=== PATIENT | male | born 1940 | race Hispanic/Latino ===

== ENCOUNTER 2017-08-01 20:40 | Inpatient (IN) | payer MEDICARE ==
[2017-08-01] MEDS ORDERED: Ondansetron ODT 8 MG TAB ONE (21:12)
[2017-08-01 21:30] LABS: #Eosinphils 0.1 thou/uL (0.0-0.7); #Monocytes 1.3 thou/uL (0.11-0.59); #Neutrophils 12.9 thou/uL (1.40-6.50); %Basophils 0.3 % (0.0-1.0); %Eosinophils 0.7 % (0.0-10.0); %Lymphocytes 12.4 % (21.0-51.0); %Monocytes 7.7 % (0.0-10.0); %Neutrophils 78.9 % (42.0-75.0); Hemoglobin 15.7 g/dL (14.0-18.0); Mean Corpuscular HGB CONC 34.2 g/dL (32.0-36.0); Mean Corpuscular Volume 90.6 fl (80.0-94.0); Mean Platelet Volume 6.2 fL (7.4-10.4); Platelet Count 234 thou/uL (130-400); RBC Distribution Width 12.5 % (11.5-14.5); Red Blood Cell (RBC) Count 5.06 mill/uL (4.70-6.10); White Blood Cell (WBC) Count 16.3 thou/uL (4.8-10.8)
[2017-08-01 21:51] LABS: ALT (SGPT) 14 U/L (8-55); AST (SGOT) 24 U/L (5-34); Albumin 4.4 g/dL (3.4-4.8); Alkaline Phosphatase 78 U/L (40-150); Anion Gap 14 mmol/L (10-20); BUN (Urea Nitrogen) 30 mg/dL (8.4-25.7); Bilirubin, Total 0.4 mg/dL (0.2-1.2); Calc. Creatinine Clearance 0 mL/min (70-130); Calcium 9.3 mg/dL (7.8-10.44); Carbon Dioxide 23 mmol/L (23-31); Chloride 108 mmol/L (98-107); Estimated GFR-MDRD 51; Globulin 3.3 g/dL (2.4-3.5); Glucose 121 mg/dL (83-110); Lipase 47 U/L (8-78); Potassium 4.2 mmol/L (3.5-5.1); Protein, Total 7.7 g/dL (5.8-8.1); Sodium 141 mmol/L (136-145)
--- NOTE | 2017-08-01 22:13 | CT ---
CT ABDOMEN AND PELVIS WITHOUT CONTRAST: 08/01/17 Multiple axial tomograms obtained of the abdomen and pelvis without IV enhancement. HISTORY: Right sided abdominal pain. Comparison made to a CT abdomen from April 2009. FINDINGS: Lung bases clear. There is a cyst in the inferior right lobe of the liver which had enlarged since e prior study. This cyst measures 3.5 cm today. Liver, spleen and pancreas otherwise unremarkable for an unenhanced study. Adrenal glands normal. Kidneys unremarkable. there is a nonobstructing calculus in the upper collecti ng structures of the right kidney measuring possibly 7 mm. The ureters are normal caliber. No evidence of ureteral obstruction or hydronephrosis. Urinary bladde r is mildly distended and there is mild bladder wall thickening. There is mild prostatic hypertrophy. Small bowel loops appear normal. Appendix appears normal. Colon is unremarkable, filled with stool an d gas. Aorta is normal caliber. No adenopathy apparent. IMPRESSION: 1. Nonobstructing 7 mm calculus upper collecting structures right kidney. 2. Mild urinary bladder wall thickening. 3. Prostatic hypertrophy. 4. Hepatic cyst. POS: [facility]
[2017-08-01 23:07] LABS: Bilirubin Negative (Negative); Blood, Urine Negative (Negative); Clarity CLEAR (Clear); Glucose, Urine (Dipstick) Negative (Negative); Leukocyte Negative (Negative); Nitrite Negative (Negative); Protein, Urine (Dipstick) Negative (Neg-Trace); Specific Gravity, Urine 1.026 (1.002-1.036); Urobilinogen 0.2 mg/dL (0.2-1.0)
[2017-08-01] MEDS ORDERED: Promethazine HCl 25 MG/ML VIAL ONE (23:22)
[2017-08-01] MEDS ORDERED: Fentanyl 100 MCG/2 ML VIAL ONE (23:22)
[2017-08-01 23:52] LABS: INR-International Normal Ratio 2.7; PTT 36.3 SEC (22.9-36.1); Prothrombin Time 30.2 SEC (12.0-14.7)
--- NOTE | 2017-08-01 23:56 | RAD ---
PORTABLE CHEST: 08/01/17 HISTORY: Preoperative evaluation. Heart is mildly enlarged with postop sternotomy change. Mild vascular engorgement. No evidence of inf iltrate or significant effusion. Mild atelectasis in the lung bases as confirmed on CT abdomen perfor med earlier today. IMPRESSION: No acute lung process. Mild basilar atelectasis is seen on earlier CT. POS: [facility]
[2017-08-02] MEDS ORDERED: Fentanyl 100 MCG/2 ML VIAL ONE (01:50)
[2017-08-02] MEDS: Dextrose 5 % And 0.9 % NaCl 1,000 ML IV SCH ×3 (02:39→22:00)
[2017-08-02] MEDS ORDERED: HYDROcodone/Acetaminophen 10/325 mg Tablet PO PRN (07:12)
--- NOTE | 2017-08-02 07:47 | CON ---
DATE OF CONSULTATION: 08/02/2017 PRIMARY CARE PHYSICIAN: Dr. Holt SOLDERING TECHNICIAN: Dr. Laird REASON FOR CONSULT: Right renal lithiasis, right upper quadrant abdominal discomfort. HISTORY OF PRESENT ILLNESS: Mr. Vivar is a pleasant male, [id number] , [place] speaking, who presents with his daughter for evaluation of right upper quadrant abdominal discomfort that began yesterday. The patient relates that the right upper quadrant discomfort at times radiates to his upper back. History of nausea; however, currently denies. He is currently resting comfortably. Pain is characterized as constant shooting pain. Denies prior urologic assessment for kidney stones, BPH issues. He denies family history of prostate cancer. He has urinary frequency; however, states that his urinary flow is adequate, denies obstructive urinary symptoms. Denies gross hematuria. He was provided 50 mcg of fentanyl x2, morphine 8 mg, Zofran 8 mg in the emergency room. Due to intractable pain, urologic consultation was obtained. CT, however, demonstrated a nonobstructing 7 mm right kidney stone with no evidence of hydronephrosis. The patient is retired, extended family at bedside. PAST MEDICAL HISTORY: Hypertension, coronary artery disease, history of mechanical valve. Coronary artery disease. PAST SURGICAL HISTORY: CABG x4 in 1997, atrial valve replacement by Dr. Martinez. SOCIAL HISTORY: Occasional alcohol, denies illicit drug use, denies Tobacco abuse. ALLERGIES: No known drug allergies. HOME MEDICATIONS: Include warfarin, lovastatin, lisinopril, amlodipine, warfarin 7.5 mg one p.o. daily. PHYSICAL EXAMINATION: VITAL SIGNS: He presented to the emergency room with stable vital signs. Afebrile, currently is 98, 86, 14, 92%, 150/73. GENERAL: Patient is resting comfortably, daughter is at bedside. HEENT: Grossly unremarkable. HEART: Consistent with mechanical valve. LUNGS: Clear. ABDOMEN: Soft. There is no rigidity, no rebound. No tenderness elicited on physical exam. GENITOURINARY: Demonstrates uncircumcised phallus. Meatus is unremarkable. Testes descended with no evidence of intratesticular mass. Incidentally, there is large bilateral spermatocele approximately 3 cm in size. It is nontender on exam. RECTAL: A digital rectal exam demonstrates prostate smooth, volume greater than 40-50 grams. No gross nodularity is appreciated. EXTREMITIES: No cyanosis, clubbing or edema. NEUROLOGIC: No gross focal deficits. PSYCHIATRIC: Appears to be appropriate and intact. PERTINENT LABS AND IMAGING: White count of 16, hemoglobin is 15, platelets 234. INR is 2.7. PTT of 36, BUN 30, creatinine 1.3. LFTs are grossly unremarkable. UA is negative except trace ketones. Urine culture is pending. CT of the abdomen and pelvis reviewed from 2009 demonstrating a nonobstructing right lower pole 3 mm stone. MRI in 2004 demonstrates right 1.5 cm hemorrhagic cyst, hepatic cyst. CT without contrast 08/01/2017; nonobstructing 7 mm right lower pole renal calculi measuring 7 mm. Hounsfield unit per my review is 1100. There is no evidence of hydroureteronephrosis. Bladder is mildly distended with BPH component. Prostate measures per my review approximately 54 grams. IMPRESSION/PLAN: 1. Mr. Vivar is a pleasant 77-year-old male, [place] speaking, presented with right upper quadrant abdominal discomfort of unclear etiology. 2. History of chronic anticoagulation secondary to mechanical heart valve replacement. 3. History of coronary artery disease status post coronary artery bypass graft. 4. Urologic issues of nonobstructing 7 mm lower pole stone, review of CAT scan demonstrates the stone was present back in 2009. 5. Prostatic hypertrophy on imaging. RECOMMENDATIONS: 1. The patient presents with leukocytosis and right upper quadrant pain of unclear etiology. I do not believe that his nonobstructing right lower pole stone present since 2009 is the culprit for acute right upper quadrant discomfort. There is a possibility that this is neuromuscular in etiology. Workup per medical service is advised. Currently, he is resting comfortably. Recommend pain management with oral regimen and monitor. I will obtain a KUB this morning. If pain is adequately controlled and medically cleared; from urologic perspective, he may be discharged with outpatient follow up with me for elective treatment versus observation of his right lower pole stone. He will require full cardiac workup due to history of CABG, atrial valve replacement. 2. Incidental spermatocele. Will obtain scrotal ultrasound. Recheck CBC. MTDD
[2017-08-02] MEDS: HYDROcodone/Acetaminophen 10/325 mg Tablet PO PRN ×2 (07:53→14:35)
[2017-08-02 07:54] LABS: Hemoglobin 15.2 g/dL (14.0-18.0); Mean Corpuscular HGB CONC 33.7 g/dL (32.0-36.0); Mean Corpuscular Hemoglobin 31.2 pg (27.0-31.0); Mean Corpuscular Volume 92.7 fl (80.0-94.0); Mean Platelet Volume 6.3 fL (7.4-10.4); Platelet Count 196 thou/uL (130-400); RBC Distribution Width 12.7 % (11.5-14.5); Red Blood Cell (RBC) Count 4.86 mill/uL (4.70-6.10); White Blood Cell (WBC) Count 18.2 thou/uL (4.8-10.8)
[2017-08-02 08:29] LABS: Band 30 % (5-11); Lymphocytes 1 % (21-51); MDiff Complete? YES; Neutrophil 61 % (42-75); PLT Morphology Comment Appears Adequate; RBC Morphology Normal; Reactive Lymphocytes 8 % (0-10)
[2017-08-02] MEDS: Docusate 100 MG CAP PO SCH ×2 (08:31→20:07)
[2017-08-02] MEDS: Tamsulosin HCl 0.4 MG CAP PO SCH (08:32)
[2017-08-02] MEDS ORDERED: Prevnar 13-Val Conj/PF 0.5 ML SYRINGE IM ONE (09:00)
--- NOTE | 2017-08-02 09:02 | RAD ---
KUB: DATE: 08/02/17. PROVIDED CLINICAL HISTORY: Right renal stone. FINDINGS: Comparison is made with the CT examination dated 08/01/17. Abdominal bowel gas pattern is nonspecific . Conspicuous fecal material obscures the right renal shadow with known right nephrolithiasis not we ll demonstrated on the current study. Vascular calcifications are seen. Degenerative changes involv e the spine. IMPRESSION: Known right renal calculus is poorly demonstrated radiographically. POS: [facility]
--- NOTE | 2017-08-02 10:11 | ULT ---
BILATERAL TESTICULAR ULTRASOUND WITH DOPPLER: HISTORY: Spermatocele. TECHNIQUE: Sweeney-scale, color-flow, and spectral Doppler. FINDINGS: The right testis measures 4.4 x 2.2 x 3.2 cm, and the left testis measures 4.4 x 2.2 x 3.2 cm[address] No te sticular mass or microlithiasis is seen. Flow is demonstrated to both testes and epididymides. No r ight-sided hydrocele is seen. There are cysts in the epididymal heads on either side, the largest on the right measuring 3.1 cm and on the left measuring 1.7 cm. There is a large extratesticular cystic area in the left scrotum. This may either represent a large extratesticular cyst or a hydrocele. IMPRESSION: 1 . Bilateral epididymal head cysts/spermatoceles. 2. Hydrocele versus large extratesticular cyst on the left. POS: [facility]
--- NOTE | 2017-08-02 11:19 | ULT ---
BILATERAL RENAL ULTRASOUND: HISTORY: Right kidney stone; rule out hydronephrosis. FINDINGS: The right kidney measures 11.1 cm in length, and the left kidney measures 11.4 cm in length. No foca l mass or hydronephrosis is seen on either side. The cortical echogenicity and thickness are normal. The calculus in the right kidney noted on the CT scan of 08/01/2017 is not visualized on this study. The urinary bladder is unremarkable. Ureteral jets are seen bilaterally. IMPRESSION: No evidence of hydronephrosis. POS: [facility]
--- NOTE | 2017-08-02 14:31 | ULT ---
RIGHT UPPER QUADRANT ULTRASOUND: HISTORY: Right upper quadrant pain. FINDINGS: The left lobe of the liver is not visualized. There is a 4 cm cyst in the right lobe of the liver. No intrahepatic ductal dilatation is seen. No gallstones, gallbladder wall thickening, or pericholec ystic fluid identified. The pancreas is not visualized. The right kidney is unremarkable. No free f luid is seen in the Morison's pouch. IMPRESSION: 1. Limited exam. 2. Right liver lobe cyst. 3. No evidence of cholelithiasis. POS: [facility]
[2017-08-02] MEDS: Ketorolac Tromethamine 30 MG/ML VIAL IVP SCH (18:15)
[2017-08-02] MEDS ORDERED: Warfarin Sodium 7.5 MG TAB PO SCH (19:45)
[2017-08-02] MEDS: Simvastatin 20 MG TAB PO SCH (20:06)
[2017-08-03] MEDS: Ketorolac Tromethamine 30 MG/ML VIAL IVP SCH ×4 (00:33→17:51)
[2017-08-03 04:32] LABS: #Lymphocytes 1.2 thou/uL (1.20-3.40); #Monocytes 0.9 thou/uL (0.11-0.59); #Neutrophils 12.1 thou/uL (1.40-6.50); %Basophils 0.1 % (0.0-1.0); %Eosinophils 0.2 % (0.0-10.0); %Lymphocytes 8.4 % (21.0-51.0); %Monocytes 6.4 % (0.0-10.0); %Neutrophils 84.9 % (42.0-75.0); Hemoglobin 12.5 g/dL (14.0-18.0); Mean Corpuscular HGB CONC 33.4 g/dL (32.0-36.0); Mean Corpuscular Hemoglobin 31.4 pg (27.0-31.0); Mean Corpuscular Volume 94.1 fl (80.0-94.0); Mean Platelet Volume 6.3 fL (7.4-10.4); Platelet Count 153 thou/uL (130-400); RBC Distribution Width 12.6 % (11.5-14.5); Red Blood Cell (RBC) Count 3.97 mill/uL (4.70-6.10); White Blood Cell (WBC) Count 14.2 thou/uL (4.8-10.8)
[2017-08-03 04:41] LABS: Anion Gap 7 mmol/L (10-20); BUN (Urea Nitrogen) 26 mg/dL (8.4-25.7); Calc. Creatinine Clearance 57 mL/min (70-130); Calcium 8.4 mg/dL (7.8-10.44); Carbon Dioxide 26 mmol/L (23-31); Chloride 111 mmol/L (98-107); Estimated GFR-MDRD 55; Glucose 115 mg/dL (83-110); Sodium 140 mmol/L (136-145)
--- NOTE | 2017-08-03 05:19 | HP ---
DATE OF ADMISSION: 08/01/2017 REASON FOR ADMISSION AND CHIEF COMPLAINT: Right upper quadrant, right lower rib pain, acute. HISTORY OF PRESENT ILLNESS: Mr. Vivar is a 77-year-old, male with past medical history of co ronary artery disease, status post CABG, hypertension, status post TAVR, came because of sudden onset of the pain in the right upper quadrant and right flank area pain. The pain is sharp in nature asso ciated with some nausea. The patient did not fall, but he did work with manual saw for some time cut ting some branches of the trees. He worked for a few hours in the afternoon and he developed this pa in later in the evening. Pain radiates from the right lower rib area on the site to right upper quad rant, but not to the groin. No dizziness, no fever, no cough. The patient came to the emergency pricila because of severe pain. In the ER, the patient was evaluated. The patient given fentanyl for the pain, Phenergan for the nausea. A CT scan of the abdomen was done in the ER revealed nonobstructing 7 mm calculus in the upper collecting structure of the right kidney, so ER physician felt this may be causing the pain. He is admitted for further evaluation and management. PAST MEDICAL HISTORY: 1. Coronary artery disease, status post coronary artery bypass graft. 2. Hypertension. 3. Hyperlipidemia. PAST SURGICAL HISTORY: Status post CABG, status post TAVR. CURRENT MEDICATIONS: Amlodipine 5 mg daily, aspirin 81 mg daily, lisinopril 20 mg daily, lovastatin 20 mg daily, warfarin sodium 7.5 mg b.i.d. ALLERGIES: No known drug allergies. FAMILY HISTORY: Nothing contributory. SOCIAL HISTORY: Patient lives with family. No history of smoking. No history of alcohol intake. REVIEW OF SYSTEMS: Cardiovascular: No chest pain. No shortness of breath. Respiratory: No fever or cough. Gastrointestinal: Has right upper quadrant pain. No nausea, no vomiting, no diarrhea. C entral nervous system: No headache, no dizziness. PHYSICAL EXAMINATION: GENERAL: The patient is alert, awake, oriented x3. VITAL SIGNS: Temperature 98, pulse 86, respirations 20, blood pressure 140/70. HEENT: Head is normocephalic, atraumatic. Pupils equal. Nasopharynx is pink and moist. NECK: Supple. No JVD. LUNGS: Bilateral air entry present, no rales, no rhonchi. CARDIAC: S1, S2 regular. ABDOMEN: Soft and tenderness present in right upper quadrant area. No guarding, no rigidity. Bowel sounds present. RECTAL: Deferred. CHEST: Chest wall on the right side is tender in the right lower rib area. NEUROLOGIC: No focal neurological deficit. EXTREMITIES: No edema. LABORATORY AND X-RAY FINDINGS: CBC shows WBC 16.3, hemoglobin 15, hematocrit 45, platelets 234. Met abolic panel: Sodium 140, potassium 4.2, chloride 108, CO2 of 23, urea nitrogen 30, creatinine 1.3, glucose 121. Prothrombin time 13 and INR 2.7. Urinalysis negative. CT scan of the abdomen revealed there is a nonobstructing calculus in the upper collecting structures of the right kidney, measuring 7 mm, no hydronephrosis. The liver and pancreas were unremarkable. EKG shows normal sinus rhythm, no acute ST-T wave changes seen. ASSESSMENT: 1. Right upper quadrant pain and lower rib area pain, possibly musculoskeletal. 2. Leukocytosis. 3. Nephrolithiasis, stable. 4. Coronary artery disease, status post coronary artery bypass graft. 5. Hypertension. 6. Status post transcatheter aortic valve replacement. 7. Hyperlipidemia PLAN: 1. Vital signs q.4 hours. 2. Activity: As tolerated. 3. Allergies: NKDA. 4. Diet: Cardiac. 5. Continue home medication. 6. Toradol 30 IVP q.6 hours. 7. We will repeat WBC tomorrow, blood cultures.
[2017-08-03] MEDS: HYDROcodone/Acetaminophen 10/325 mg Tablet PO PRN (06:07)
--- NOTE | 2017-08-03 08:08 | PRG ---
DATE OF SERVICE: 08/03/2017 SUBJECTIVE: The patient is feeling better this morning, relates this morning his pain is in the right mid to lower quadrant, anterior, denies flank pain. He is feeling better. Denies nausea, vomiting or chills. PHYSICAL EXAMINATION: VITAL SIGNS: Stable, 99.7, 74, 138, 18. ABDOMEN: Soft. No rigidity, no rebound, no CVA tenderness. Subjective area of discomfort is in the right mid to lower quadrant. The patient relates that on palpation, it is reproducible. LABORATORY DATA: White count is decreased from 18,000-14,000, hemoglobin 12, platelet 153, no significant bandemia on today's CBC. Renal function stable, creatinine 1.27. UA demonstrates trace ketones, no bacteria, no leukocytes, no nitrites. Preliminary urine culture is negative. IMAGIN. Renal ultrasound demonstrates no hydronephrosis. KUB demonstrated nonvisualization of the stone due to bowel contents. 2. Scrotal ultrasound demonstrates bilateral epididymal head cyst/spermatocele , left large hydrocele versus spermatocele. 3. Abdominal ultrasound demonstrates no evidence of cholelithiasis. IMPRESSION AND PLAN: Mr. Vivar is a 77-year-old male with history of mechanical heart valve replacement on chronic anticoagulation with Coumadin. 1. Hypertension. 2. Coronary artery disease status post coronary artery bypass graft, presents with right quadrant abdominal discomfort of unclear etiology. His physical exam and clinical history is such that this discomfort is unrelated to his nonobstructing right lower pole stone. There is no evidence of calyceal dilatation on CT/renal ultrasound. The stone has been present dating to imaging back in 2009. As the stone does measure 7 mm, recommend surveillance, informed patient and family at bedside to consider elective treatment if they desire; however, this will require full cardiac workup and clearance to proceed given his history of heart valve and coronary artery disease. 3. History of benign prostatic hypertrophy on imaging. Recommend patient be discharged with Flomax 0.4 mg 1 p.o. daily. Clinically, his parameters have improved with no significant fever, resolution of leukocytosis, pain improving. From a urologic perspective, patient may be discharged when medically stable. Elective follow up will be provided. will sign off. [facility]
--- NOTE | 2017-08-03 08:51 | CON ---
DATE OF CONSULTATION: 08/02/2017 REFERRING PHYSICIAN: Dr. Eliot Holt. REASON FOR CONSULTATION: Abdominal pain. HISTORY OF PRESENT ILLNESS: Mr. Mukesh Vivar is a very pleasant 77-year-old [place] male, h ospitalized with abdominal pain over right upper quadrant, right colon area. He has been having that over the last several days. He has mild nausea to begin with. Since that time, he has no more naus ea. No vomiting. Does feel hungry and eats well. The pain is not worse with intake of fluid. The pain was predominantly on right side of the abdomen. The patient's family tells me that he is very a ctive and tends to move heavy objects and cut trees and mows lawn all the time. The patient does not remember having an injury to the right side of abdomen. Although, he has had right-sided abdominal pain daily, has no worsening of pain with intake of food. He feels hungry. Since admission, patient had abdominal CAT scan and abdominal sonogram. The abdominal sonogram shows no gallstones. Abdomin al CAT scan does show a small kidney stone on the right side measuring approximately 7 mm. The kidne y stone right kidney. No evidence of hydronephrosis. He also enlarged prostate by CAT scan. I was asked to see the patient by Dr. Holt because of abdominal pain and negative workup so far . His bowel movements are regular. No history of diarrhea. No rectal bleeding. The patient has rao d similar episodes in the past and was treated as an outpatient in the past. He has no fever. An ab dominal CAT scan on 08/01/2017 and was found to have enlarged prostate, hepatic cyst, and also a nono bstructing kidney stone over the right upper collecting structures. An abdominal sonogram shows no g allstones. He has no relevant history. ALLERGIES: None. SOCIAL HISTORY: Patient is . He does not smoke, but drinks alcohol occasionally. MEDICAL ILLNESSES: 1. Hypertension. 2. Hyperlipidemia. 3. Coronary artery disease. 4. Aortic valve replacement in 1997. SURGERIES: CABG and valve replacement in 1997, Dr. Martinez. MEDICATIONS: Warfarin 7.5 once a day, lovastatin 20 once a day, amlodipine 5 mg once a day, lisinopr il 20 once a day. FAMILY HISTORY: Negative for cancer, stroke, heart disease, or lung disease. REVIEW OF SYSTEMS: A 10-point system review. Constitutional: No history of fever, no weakness. He has good exercise tolerance, no weight loss. Central Nervous System: No headache, no syncope, no T IA, no seizure disorder. Respiratory: No history of chronic cough, hemoptysis, dyspnea. Cardiovasc ular system: No chest pain, no palpitation, no dyspnea, orthopnea, or PND. Gastrointestinal: As st ated in the history of present illness. Genitourinary: History of nocturia and also at times thin u rine stream. Musculoskeletal: Unremarkable. Endocrine: Unremarkable. Hematologic: Unremarkable. Neuro: Unremarkable. Psychiatry: Unremarkable. PHYSICAL EXAMINATION: GENERAL: Patient appears very comfortable in no acute distress. VITAL SIGNS: Stable. Temperature 98.3, pulse of 82, blood pressure 148/76. HEENT: Conjunctivae clear. NECK: Supple. No adenitis or thyromegaly noted. CARDIOVASCULAR SYSTEM: First and second heart sounds normal. LUNGS: Clear to auscultation. ABDOMEN: Soft to palpate. Abdomen is tender over the right upper quadrant mainly over the epigastri c area and also over the right colon area. There is no rebound or guarding. No organomegaly or mass es. Bowel sounds are normal. LABORATORY DATA: On admission 08/01, WBC 16,300, polymorphs 78, lymphocytes 12. Today WBC went up t o 18,200, hemoglobin is 15.2, hematocrit 45. Interestingly, he has 30% bandemia today and polymorphs 61. Sodium 141, potassium 4.2, chloride 108, bicarbonate 23, BUN is 30, creatinine 1.37, glucose 12 1, calcium 9.3. Bilirubin 0.4, AST 24, ALT 14, alkaline phosphate is 78. Lipase is normal at 47. CLINICAL IMPRESSION: 1. A 77-year-old male with abdominal pain, predominantly over right upper abdomen. It is tender ove r the right upper quadrant, right lumbar area corresponding right colon area. There is no rebound or guarding. He had leukocytosis yesterday with no bandemia, but today is 30% bands. Does not appear septic. The workup has been basically negative except for small kidney stones in the right side. 2. Hypertension. 3. Hyperlipidemia. 4. Aortic valve replacement. 5. Enlarged prostate on CAT scan. Overall impression at the present time, really not sure of the details of abdominal pain. He does no t appear septic and he had no fever leukocytosis and also bandemia. RECOMMENDATIONS: 1. Diets are tolerated. 2. Follow CBC. 3. Await blood cultures. Abdominal pain persists, consider: 1. HIDA scan. 2. Possible colonoscopy.
[2017-08-03] MEDS: Tamsulosin HCl 0.4 MG CAP PO SCH ×2 (08:57→08:58)
[2017-08-03] MEDS: Lisinopril 20 MG TAB PO SCH (08:57)
[2017-08-03] MEDS: Docusate 100 MG CAP PO SCH ×2 (08:58→19:44)
[2017-08-03] MEDS: Aspirin 81 mg Enteric Coated Tablet PO SCH (08:58)
[2017-08-03] MEDS: Amlodipine 5 MG TAB PO SCH (13:07)
[2017-08-03 15:33] LABS: INR-International Normal Ratio 2.7; Prothrombin Time 29.6 SEC (12.0-14.7)
[2017-08-03] MEDS: Warfarin Sodium 7.5 MG TAB PO SCH (17:53)
[2017-08-03] MEDS ORDERED: predniSONE 20 MG TAB PO SCH (18:45)
[2017-08-03] MEDS ORDERED: HYDROcodone/Acetaminophen 5/325 mg Tablet PO PRN (18:46)
[2017-08-03] MEDS: Simvastatin 20 MG TAB PO SCH (19:43)
[2017-08-03] MEDS: Acetaminophen/Codeine 30-300mg Tablet PO PRN (19:44)
[2017-08-04] MEDS: Acetaminophen/Codeine 30-300mg Tablet PO PRN ×2 (04:19→10:41)
[2017-08-04 04:25] LABS: INR-International Normal Ratio 2.6; Prothrombin Time 29.1 SEC (12.0-14.7)
--- NOTE | 2017-08-04 07:44 | PRG ---
DATE OF SERVICE: 08/03/2017 SUBJECTIVE: This is a 77-year-old [place] male hospitalized with abdominal pain over right side of the abdomen. The pain is over the right upper quadrant and also over the right lumbar area across from the right colon area. The workup has been negative. His abdominal CAT scan and abdominal sonogram negative. He has no nausea. He feels hungry and eating well. The eating does not make the pain worse. The patient had leukocytosis bandemia yesterday to 30%. However, today, CBC shows no bandemia. I believe the labs from yesterday, most likely lab error because I cannot believe bandemia came down very quickly within 24 hours. Today, WBC count is 14,200, hemoglobin 12.5 , hematocrit 37.3, polymorphs 84 and no bands. PHYSICAL EXAMINATION: GENERAL: Appears comfortable. VITAL SIGNS: Stable. Afebrile. CARDIOVASCULAR SYSTEM: First and second heart sounds normal. ABDOMEN: Soft to palpate. Abdomen is tender over the upper quadrant and also right colon area. There is no rebound or guarding. RECOMMENDATION: 1. Continue pain medication. 2. May consider colonoscopy as an outpatient, as the coumadin needs to be stopped for at least 3 days. We will defer to Dr. Holt tomorrow. YOLANDA
[2017-08-04] MEDS ORDERED: predniSONE 20 MG TAB PO SCH (08:00)
[2017-08-04] MEDS: Lisinopril 20 MG TAB PO SCH (08:50)
[2017-08-04] MEDS: Docusate 100 MG CAP PO SCH ×2 (08:51→20:13)
[2017-08-04] MEDS: Aspirin 81 mg Enteric Coated Tablet PO SCH (08:51)
[2017-08-04] MEDS: Amlodipine 5 MG TAB PO SCH (08:51)
[2017-08-04] MEDS: Tamsulosin HCl 0.4 MG CAP PO SCH (08:51)
--- NOTE | 2017-08-04 13:26 | CT ---
CT OF CHEST PERFORMED WITH IV CONTRAST ENHANCEMENT: Date: 08/04/17 HISTORY: Shortness of breath and upper abdominal pain for 3 days. COMPARISON: Chest x-ray dated 08/01/17. FINDINGS: There are bibasilar areas of consolidation with air bronchograms, greater in the right base. Changes have an appearance more suggestive of a pneumonic-type process than atelectasis. There is a small rig ht pleural effusion also seen. No pulmonary nodules are identified. There is no significant mediastinal or hilar adenopathy. No significant axillary adenopathy. There are small hypodensities within the liver which appear to represent cysts. They are difficult to characterize due to their small size. The largest lesion in the right lobe has CT Hounsfield unit nu mbers that are slightly higher than typically seen for a cyst, but I do not see any change or enhance ment related to the noncontrast CT of 08/01/17. IMPRESSION: 1. Small right pleural effusion with bibasilar infiltrates. 2. Postop sternotomy change and aortic valve noted. POS: [facility]
[2017-08-04] MEDS: cefTRIAXone\\ROCEPHIN 2 GM in Sodium Chloride 0.9% 100 ML IVPB SCH (14:12)
[2017-08-04] MEDS: Azithromycin 500 MG in Sodium Chloride 0.9% 250 ML 250 ML IVPB SCH (15:00)
[2017-08-04] MEDS ORDERED: Iopamidol 370 76% 100 ML VIAL ONE (16:38)
[2017-08-04] MEDS: Warfarin Sodium 7.5 MG TAB PO SCH (19:33)
[2017-08-04] MEDS: Simvastatin 20 MG TAB PO SCH (20:13)
[2017-08-05] MEDS: Acetaminophen/Codeine 30-300mg Tablet PO PRN ×4 (03:27→22:51)
[2017-08-05 04:26] LABS: INR-International Normal Ratio 2.7
[2017-08-05 06:47] LABS: Platelet Count 185 thou/uL (130-400)
[2017-08-05] MEDS: Lisinopril 20 MG TAB PO SCH (10:49)
[2017-08-05] MEDS: Tamsulosin HCl 0.4 MG CAP PO SCH (10:49)
[2017-08-05] MEDS: Amlodipine 5 MG TAB PO SCH (10:49)
[2017-08-05] MEDS: Docusate 100 MG CAP PO SCH ×2 (10:49→20:28)
[2017-08-05] MEDS: Aspirin 81 mg Enteric Coated Tablet PO SCH (10:49)
[2017-08-05] MEDS: cefTRIAXone\\ROCEPHIN 2 GM in Sodium Chloride 0.9% 100 ML IVPB SCH (14:09)
[2017-08-05] MEDS: Azithromycin 500 MG in Sodium Chloride 0.9% 250 ML 250 ML IVPB SCH (15:06)
[2017-08-05] MEDS ORDERED: Mag-Al 1200 mg/1200 mg/30 ML UDCUP PO PRN (17:44)
[2017-08-05] MEDS: Warfarin Sodium 7.5 MG TAB PO SCH (18:02)
[2017-08-05] MEDS: Simvastatin 20 MG TAB PO SCH (20:26)
[2017-08-06 04:49] LABS: Prothrombin Time 32.3 SEC (12.0-14.7)
[2017-08-06 04:51] LABS: Anion Gap 10 mmol/L (10-20); BUN (Urea Nitrogen) 17 mg/dL (8.4-25.7); Calc. Creatinine Clearance 84 mL/min (70-130); Calcium 8.5 mg/dL (7.8-10.44); Carbon Dioxide 26 mmol/L (23-31); Chloride 107 mmol/L (98-107); Estimated GFR-MDRD 83; Glucose 98 mg/dL (83-110); Potassium 3.9 mmol/L (3.5-5.1); Sodium 139 mmol/L (136-145)
[2017-08-06 05:13] LABS: Band 4 % (5-11); Eosinophils 1 % (0-10); Hemoglobin 13.3 g/dL (14.0-18.0); Lymphocytes 33 % (21-51); MDiff Complete? YES; Mean Corpuscular HGB CONC 33.4 g/dL (32.0-36.0); Mean Corpuscular Hemoglobin 30.4 pg (27.0-31.0); Mean Corpuscular Volume 91.1 fl (80.0-94.0); Mean Platelet Volume 6.1 fL (7.4-10.4); Metamyelocyte 1 % (0-0); Monocytes 11 % (0-10); Neutrophil 50 % (42-75); PLT Morphology Comment Appears Adequate; Platelet Count 221 thou/uL (130-400); RBC Distribution Width 12.2 % (11.5-14.5); Red Blood Cell (RBC) Count 4.38 mill/uL (4.70-6.10); White Blood Cell (WBC) Count 7.2 thou/uL (4.8-10.8)
[2017-08-06] MEDS: Acetaminophen/Codeine 30-300mg Tablet PO PRN ×3 (06:02→19:37)
[2017-08-06] MEDS: Tamsulosin HCl 0.4 MG CAP PO SCH (08:58)
[2017-08-06] MEDS: Amlodipine 5 MG TAB PO SCH (08:58)
[2017-08-06] MEDS: Lisinopril 20 MG TAB PO SCH (08:58)
[2017-08-06] MEDS: Docusate 100 MG CAP PO SCH ×2 (08:58→19:36)
[2017-08-06] MEDS: Aspirin 81 mg Enteric Coated Tablet PO SCH (08:58)
[2017-08-06] MEDS: cefTRIAXone\\ROCEPHIN 2 GM in Sodium Chloride 0.9% 100 ML IVPB SCH (14:43)
[2017-08-06] MEDS: Azithromycin 500 MG in Sodium Chloride 0.9% 250 ML 250 ML IVPB SCH (15:49)
[2017-08-06] MEDS: Warfarin Sodium 7.5 MG TAB PO SCH (17:32)
[2017-08-06] MEDS: Simvastatin 20 MG TAB PO SCH (19:36)
[2017-08-07] MEDS: Acetaminophen/Codeine 30-300mg Tablet PO PRN (01:34)
[2017-08-07 04:35] LABS: INR-International Normal Ratio 2.7; Prothrombin Time 29.5 SEC (12.0-14.7)
[2017-08-07] MEDS ORDERED: HYDROcodone/Acetaminophen 10/325 mg Tablet PO PRN (09:11)
[2017-08-07] MEDS ORDERED: Polyethylene Glycol 3350 17 GM Packet PO SCH (09:15)
[2017-08-07] MEDS: Docusate 100 MG CAP PO SCH ×2 (09:32→20:54)
[2017-08-07] MEDS: Lisinopril 20 MG TAB PO SCH (09:32)
[2017-08-07] MEDS: Tamsulosin HCl 0.4 MG CAP PO SCH (09:32)
[2017-08-07] MEDS: Aspirin 81 mg Enteric Coated Tablet PO SCH (09:32)
[2017-08-07] MEDS: Amlodipine 5 MG TAB PO SCH (09:33)
[2017-08-07 10:56] VITALS: BMI 29.5
[2017-08-07] MEDS ORDERED: Ondansetron HCl/PF 4 MG/2 ML Vial IVP PRN (12:13)
[2017-08-07] MEDS ORDERED: Magnesium Citrate 300 ML BOT PO SCH (12:15)
[2017-08-07] MEDS ORDERED: predniSONE 20 MG TAB PO SCH (13:45)
--- NOTE | 2017-08-07 13:59 | CON ---
DATE OF CONSULTATION: 08/07/2017 SERVICE: Pulmonary Medicine REASON FOR CONSULTATION: Pneumonia. HISTORY OF PRESENT ILLNESS: The patient is a 77-year-old white male. He presented to the hospital several days ago with right-sided flank discomfort. He was given significant amounts of pain medication. He became a touch somnolent. He was breathing and sleeping heavily for a couple of days. That being said, when woke up, his flank discomfort had improved, but he had a new onset of pleuritic chest discomfort. This was on hospital day 2. As such, he was sent for CT scan demonstrating a new right lower lobe and left lower lobe infiltrate that was not present on presentation. He was given incentive spirometer. He developed a cough and was given multiple pain medications for the new pleuritic chest discomfort. These seemed to do the trick. Either way, he is being considered for discharge soon and I was asked to evaluate him basically on the day of discharge. He endorses multiple features consistent with sleep apnea. PAST MEDICAL HISTORY: 1. Coronary artery disease. 2. Hypertension. 3. Dyslipidemia. 4. Nephrolithiasis. PAST SURGICAL HISTORY: 1. Coronary artery bypass graft. 2. Aortic valve replacement. ALLERGIES: No known drug allergies. MEDICATIONS: List of inpatient medications were reviewed. Multiple updates were made at this time. FAMILY HISTORY: Noncontributory. SOCIAL HISTORY: Negative for alcohol, tobacco or illicit drug use. No exposure to chemicals, dusts, asbestosis, or tuberculosis. REVIEW OF SYSTEMS: General, head, ears, eyes, nose, throat, cardiovascular, respiratory, GI, , musculoskeletal, neurologic and skin is negative except as mentioned in the HPI. PHYSICAL EXAMINATION: VITAL SIGNS: Afebrile, pulse 83, blood pressure 158/87, respirations 16, saturation 93% on room air. GENERAL: The patient is awake, alert, no apparent distress. LUNGS: Excellent air entry with no prolonged expiratory phase, wheezing, rhonchi or crackles. HEART: Normal rate, regular. ABDOMEN: Soft, nontender, nondistended. Bowel sounds are positive. MUSCULOSKELETAL: No cyanosis or clubbing. There is no pitting in the bilateral lower extremities. NEUROLOGIC: Grossly nonfocal. LABORATORY DATA: WBC 7.2, down from 18.2, hemoglobin 13.3, platelets 221,000. INR 2.7. Basic metabolic profile is essentially unremarkable at this time. Creatinine has down trended from 1.37-0.89. Urinalysis is negative. Blood cultures x2. Urine culture are negative to date. IMAGIN. CT of the abdomen and pelvis done demonstrate anything other than an obstructing stone are nonobstructing stone that has been present since 2010 in the right renal calyx. 2. CT of the chest demonstrates an infiltrate in the right lung and left lung in the posterior dependent segments. 3. Abdominal ultrasound demonstrates no acute intra-abdominal abnormality. 4. Testicular ultrasound demonstrates bilateral testicular cyst/spermatocele. He also has hydrocele versus large extratesticular cyst on the left. 5. Ultrasound of the kidneys demonstrates no evidence for hydronephrosis. ASSESSMENT: 1. Community-acquired pneumonia. 2. Severe sepsis, resolved. 3. Acute kidney injury, resolved. 4. Pleuritic chest discomfort, likely associated with pneumonia. 5. Flank discomfort, nearly resolved. DISCUSSION AND PLAN: The patient will continue his antibiotics for a total duration of 5 days. I will switch him over to p.o. equivalent. We will give him a brief 5-day course of prednisone. I will have him return to clinic in roughly 2 weeks with a pre-clinic chest x-ray. I will get a chest x-ray today. If he does not have significant effusion on the right, he will be a candidate for discharge from the hospital. 70 minutes have been devoted to this patient in various activities. I personally reviewed all imaging studies and laboratory data noted within this document. For fifty percent of this time, I was interacting with the patient at the bedside or coordinating care with the care team. For the remainder of the time I was immediately available to the patient in the hospital unit. YOLANDA
--- NOTE | 2017-08-07 15:22 | RAD ---
PA AND LATERAL VIEWS CHEST: HISTORY: Preoperative evaluation. FINDINGS: Comparison is made with the exam of 08/01/17. There are changes of median sternotomy. The heart size is normal. The aorta is tortuous. There is elevation of the right hemidiaphragm. A plate of atelectasis is seen in the left lower lung. No pne umothoraces or focal areas of consolidation are seen. Small posterior pleural effusions may be prese nt. There are degenerative changes in the spine. POS: [facility]
[2017-08-07] MEDS ORDERED: traMADol HCl 50 MG TAB PO PRN (16:48)
[2017-08-07] MEDS: Warfarin Sodium 7.5 MG TAB PO SCH (17:56)
[2017-08-07] MEDS ORDERED: Acetaminophen/Codeine 30-300mg Tablet PO PRN (18:06)
--- NOTE | 2017-08-07 19:25 | CT ---
CT ABDOMEN NONCONTRAST CT PELVIS NONCONTRAST: (urolithiasis protocol) DATE: 08/07/2017 TIME: 6:18 p.m. HISTORY: A 77-year-old male with generalized abdominal pain. COMPARISON: Noncontrast CT of 08/01/2017. TECHNIQUE: IV injection of iodinated contrast media: None. Oral contrast media: None. FINDINGS: Other than for urolithiasis, the lack of IV and oral contrast limits the evaluation. There is a new small right pleural effusion adjacent to a new moderate sized region of consolidation, involving the medial basilar and posterior basilar segments of the right lower lobe, with air bronch ogram. In the contralateral left lung, there are plate-like densities, consistent with subsegmental atelecta sis. Again demonstrated is the 3.5 cm cyst in the right lobe of the liver, in hepatic segment 6. There ar e tiny hypodensities elsewhere in the liver, including the left lobe, which are too small to characte rize. No abdominal aortic aneurysm. No adrenal mass. No hydronephrosis bilaterally. Previously de scribed 0.6 x 0.6 x 0.4 cm calculus at a right renal lower pole calyx. No calculus identified in the contralateral left kidney. No calculus identified in the urinary bladder or ureters. Nonspecific, minimal, uniform mural thickening of the urinary bladder. Enlarged prostate gland. No small bowel d ilation. No signs of acute colonic diverticulitis. Air-filled, noninflamed appendix identified. However, there is a new finding of mild fat stranding adjacent to the appendix, with an associated ti ny amount of free fluid in the mesentery and inferior to the right paracolic gutter. No pneumoperito neum. IMPRESSION: 1. New right lower lobe consolidation with air bronchogram, which could be a pneumonia. Atelectasis is the other, less likely possibility. 2. Right small adjacent parapneumonic pleural effusion. 3. New finding of edema in the right lower quadrant of the abdominal cavity, adjacent to the appendi x but not due to appendicitis. Etiology is uncertain. 4. Nephrolithiasis, consisting of a solitary right renal calculus, but no obstructive uropathy. ISAAC Boyd POS: [facility]
[2017-08-07] MEDS: Simvastatin 20 MG TAB PO SCH (20:53)
[2017-08-07] MEDS: Cefdinir 300 MG CAP PO SCH (20:53)
[2017-08-08 04:23] LABS: #Eosinphils 0.2 thou/uL (0.0-0.7); #Lymphocytes 1.2 thou/uL (1.20-3.40); #Neutrophils 5.3 thou/uL (1.40-6.50); %Basophils 0.3 % (0.0-1.0); %Lymphocytes 15.9 % (21.0-51.0); %Monocytes 13.3 % (0.0-10.0); %Neutrophils 67.5 % (42.0-75.0); Mean Corpuscular HGB CONC 34.5 g/dL (32.0-36.0); Mean Corpuscular Hemoglobin 31.5 pg (27.0-31.0); Mean Corpuscular Volume 91.3 fl (80.0-94.0); Mean Platelet Volume 5.7 fL (7.4-10.4); Platelet Count 234 thou/uL (130-400); RBC Distribution Width 12.3 % (11.5-14.5); Red Blood Cell (RBC) Count 4.13 mill/uL (4.70-6.10); White Blood Cell (WBC) Count 7.8 thou/uL (4.8-10.8)
[2017-08-08 04:28] LABS: INR-International Normal Ratio 2.9; Prothrombin Time 31.8 SEC (12.0-14.7)
[2017-08-08 04:39] LABS: Anion Gap 9 mmol/L (10-20); BUN (Urea Nitrogen) 14 mg/dL (8.4-25.7); Calc. Creatinine Clearance 82 mL/min (70-130); Calcium 8.6 mg/dL (7.8-10.44); Carbon Dioxide 28 mmol/L (23-31); Chloride 104 mmol/L (98-107); Estimated GFR-MDRD 80; Glucose 114 mg/dL (83-110); Sodium 137 mmol/L (136-145)
[2017-08-08 08:04] VITALS: TEMP 97.7
[2017-08-08] MEDS: Tamsulosin HCl 0.4 MG CAP PO SCH (08:41)
[2017-08-08] MEDS: Lisinopril 20 MG TAB PO SCH (08:42)
[2017-08-08] MEDS: Aspirin 81 mg Enteric Coated Tablet PO SCH (08:42)
[2017-08-08] MEDS: Docusate 100 MG CAP PO SCH (08:42)
[2017-08-08] MEDS: Amlodipine 5 MG TAB PO SCH (08:42)
[2017-08-08] MEDS: Cefdinir 300 MG CAP PO SCH (08:42)
[2017-08-08 08:45] VITALS: BP 157/76
[2017-08-08] MEDS ORDERED: predniSONE 20 MG TAB PO SCH (09:00)
[2017-08-08] MEDS ORDERED: Azithromycin 200 MG/5 ML Oral Suspension PO SCH (09:00)
[2017-08-08] MEDS ORDERED: Polyethylene Glycol 3350 17 GM Packet PO SCH (09:00)
[2017-08-08] MEDS ORDERED: Azithromycin 250 MG TAB PO SCH (09:00)
--- NOTE | 2017-08-08 12:50 | PQF ---
CLINICAL DOCUMENTATION IMPROVEMENT CLARIFICATION FORM: ICD-10 Updated PLEASE DO AN ADDENDUM TO THE PROGRESS NOTE WITH ANY DOCUMENTATION UPDATES OR ADDITIONS AND CARRY THROUGH TO DC SUMMARY. THANK YOU. DATE: 08/08/17 ATTN: Dr. Holt Please exercise your independent, professional judgment in responding to the clarification form. Clinical indicators are provided on the bottom of this form for your review Please check appropriate box(es): [ ] Sepsis due to: [ ] Severe sepsis with acute organ dysfunction of: [ y ] Localized infection without sepsis [ ] Other diagnosis [ ] Unable to determine In addition, please specify: Present on Admission (POA): [ y ] Yes [ ] No [ ] Unable to determine For continuity of documentation, please document condition throughout progress notes and discharge summary. Thank You. CLINICAL INDICATORS - SIGNS / SYMPTOMS / LABS OBSERVATION STATUS 08/02/17 INPATIENT ADMISSION 08/04: PNEUMONIA PN 08/04: CT CHEST - INFILTRATE BIBASILAR PNEUMONIA [facility] LABS: 08/01 WBC 16.3 08/02 WBC 18.2 08/01 CREATININE 1.37 PULMONOLOGY CONSULT 08/07: WBC 7.2, DOWN FROM 18.2 CREATININE HAS DOWN TRENDED FROM 1.37 - 0.89 ASSESSMENT: COMMUNITY - ACQUIRED PNEUMONIA. SEVERE SEPSIS, RESOLVED. ROLAND, RESOLVED. RISKS: H&P 08/01: 77 YO. HX CAD, S/P CABG, HTN, SUDDEN ONSET OF PAIN IN THE RUQ & R FLANK AREA PAIN. PN 08/04: PNEUMONIA [facility] TREATMENT: ORDER 08/04: AZITHROMYCIN 500 MG IV 1500. DC'D 08/07 ORDER 08/04: ROCEPHIN 2 GM IV 1400. DC'D 08/07 CPOE 08/07: OMNICEF 300 MG PO BID & AZITHROMYCIN 500 MG PO DAILY Thank you, Marta (This form is maintained as a part of the permanent medical record) 2015 [employer]. All Rights Reserved Marta Lopez RN, BSN [email or web address] Office: [phone] [facility]
--- NOTE | 2017-08-08 15:17 | PRG ---
DATE OF SERVICE: 08/08/2017 SERVICE: Pulmonary Medicine. INTERVAL HISTORY: The patient is doing fantastic from a respiratory standpoint. He had a recurrence of discomfort in the flank last night, prompting another CT stone protocol. On this thing, there is a minimal rim of effusion next to consolidated area of lung in the right lower lobe. I was asked to come back by and talked to the patient about whether or not a thoracentesis is indicated. He denies any current chest pain, nausea, vomiting, fevers or chills. The pleuritic chest discomfort has actu ally improved quite a bit. That being said, the flank pain returned, but is not nearly as severe as it was on presentation. There were no events overnight. PHYSICAL EXAMINATION: VITAL SIGNS: Afebrile, pulse 64, blood pressure 157/76, respirations 16, saturation 93% on room air. GENERAL: The patient is awake, alert, in no apparent distress. LUNGS: Decent air entry with no prolonged expiratory phase, wheezing, rhonchi, or crackles present. HEART: Normal rate, regular. ABDOMEN: Soft, nontender, nondistended. Bowel sounds are positive. MUSCULOSKELETAL: No cyanosis or clubbing. There is no pitting in the bilateral lower extremities. NEUROLOGIC: Grossly nonfocal. LABORATORY DATA: WBC 7.8, hemoglobin 13.0, and platelets 234,000. INR 2.9. Basic metabolic profile is essentially unremarkable. Glucose 114. Urinalysis is negative. Blood cultures and urine cultur e remain negative. IMAGING DATA: CT of the abdomen and pelvis, stone protocol demonstrates a stable stone in the right renal pelvis. No obstructive uropathy is identified. There is a miniscule parapneumonic effusion pr esent. There is a right lower lobe consolidation with air bronchograms, which is new compared to the previous CT of the abdomen and pelvis dated 08/02/2015, but it is similar compared to the CT of the chest that was done on 08/04. ASSESSMENT: 1. Community-acquired pneumonia. 2. Severe sepsis, resolved. 3. Acute kidney injury, resolved. 4. Pleuritic chest discomfort, associated with miniscule parapneumonic pleural effusion. 5. Flank discomfort, resolved. DISCUSSION AND PLAN: The patient will continue his antibiotics and complete a 7-day course. From a purely lung perspective, he is stable for transition out of the hospital. I will see him in clinic i n 2 weeks with a preclinic chest x-ray. At that time, we will set him up for a polysomnogram. If he has any recrudescence in symptoms, he will return to clinic soon. There was some edema present in t he right lower lobe, but it specifically was not associated with any appendicitis. The underlying et iology of this is not clear, but the patient has cleared his sepsis profile and his physical exam fin dings have resolved.
--- NOTE | 2017-08-09 08:20 | PRG ---
DATE OF SERVICE: 08/08/2017 SUBJECTIVE: This is a 77-year-old male hospitalized a week ago with abdominal pain. The pain was over the right upper quadrant epigastric area and also slightly over the right colon are a. He had an abdominal CAT scan done, which revealed a kidney stone, nonobstructing over the right k idney. He was seen by Urology and no intervention needed because of the location of the stone and __ ___. Apparently, he has had the same finding before. The patient had abdominal pain and subsequentl y had a CAT scan of the chest. The CAT scan showed right . He was started on antibiotics. He was seen emergency room yesterday. The patient had a repeat CAT scan of the abdomen yesterday again which shows a stone which is nonobstructing in the right kidney. The patient is on Tylenol No. 3 ove r the weekend because of abdominal pain. He became constipated and and started having nausea and abd ominal bloating. He had received a dose of laxative yesterday. On laxative, he had couple of good b owel movements and his abdominal pain markedly improved. He is eating very well. He has no nausea. The pain is not worse with intake of food. He says after the bowel movement, he is feeling a whole lot better. PHYSICAL EXAMINATION: GENERAL: He appears very comfortable. He is awake, alert, and communicative. VITAL SIGNS: Stable. He is afebrile. Pulse is 64, blood pressure is 144/77. HEENT: Conjunctivae clear. NECK: Supple. CARDIOVASCULAR SYSTEM: First and second heart sounds normal. LUNGS: Clear to auscultation. ABDOMEN: Soft to palpate. Abdomen is still mildly tender over the right upper quadrant epigastric a gage and also right lower colon area. There is no rebound or guarding. CLINICAL IMPRESSION: 1. Right lower lobe pneumonia, on antibiotics. 2. Abdominal pain with negative abdominal CAT scan, negative abdominal sonogram. 3. Right kidney stone, asymptomatic. RECOMMENDATIONS: 1. No narcotic pain medicines. 2. May try Milk of Magnesia or lactulose as needed. Anyway, he is actually feeling better and he rao d a good stool late last night and symptoms are markedly improved. The patient advised to come back to me in the next 4 weeks for outpatient colonoscopy.
== END 2017-08-08 13:20 | disposition home or self-care (01) | DRG 194 ==
LOC: ERS 20:40 → 2SW 23:49 → OBSVTOIN 08-04 13:14 → ONC 08-04 16:04
PROVIDERS: ADMIT Internal Medicine; ATTEND Internal Medicine
DX: J18.9 Pneumonia, unspecified organism (principal); N17.9 Acute kidney failure, unspecified; J90 Pleural effusion, not elsewhere classified; N20.0 Calculus of kidney; Z87.442 Personal history of urinary calculi; I25.10 Atherosclerotic heart disease of native coronary artery without angina pectoris; Z95.1 Presence of aortocoronary bypass graft; Z79.01 Long term (current) use of anticoagulants; Z95.2 Presence of prosthetic heart valve; I10 Essential (primary) hypertension; E78.5 Hyperlipidemia, unspecified; N40.0 Benign prostatic hyperplasia without lower urinary tract symptoms; M79.1 Myalgia
CPT/HCPCS: 36415; 71045; 71046; 71260; 74018; 74176; 76705; 76770; 76870; 80048; 80053; 81003; 83690; 85014; 85018; 85025; 85049; 85610; 85730; 87040; 87086; 90471; 90670; 93005; 93976; 96374; 96375; 96376; G0009; J0456; J0696; J1885; J2270; J2405; J2550; J3010; J7050; J7506

== ENCOUNTER 2017-09-27 12:50 | Outpatient (CLI) | payer MEDICARE ==
--- NOTE | 2017-09-27 13:51 | RAD ---
2 VIEW CHEST: Date: 09/27/17 COMPARISON: 08/07/17. INDICATION: Dyspnea. FINDINGS: Cardiomediastinal silhouette is stable. There is no evidence of consolidation or effusion. No pneumot horax. Scattered osseous degenerative change present. IMPRESSION: 1. Pulmonary hyperinflation may reflect COPD. Correlate clinically. 2. There is no superimposed, focal consolidation. Of note, there is a presumed nipple shadow of the inferior left chest. As a conservative measure, fol low-up imaging with nipple markers in place may be obtained for confirmation. POS: [facility]
== END 2017-09-27 12:51 | disposition home or self-care (01) ==
LOC: RAD 12:50
PROVIDERS: ATTEND Internal Medicine
DX: R06.00 Dyspnea, unspecified (principal); J98.11 Atelectasis
CPT/HCPCS: 71046

== ENCOUNTER 2019-07-26 08:27 | Outpatient (CLI) | payer MEDICARE, OTHER ==
[2019-07-26 14:30] LABS: #Eosinphils 0.2 thou/uL (0.0-0.7); #Lymphocytes 2.3 thou/uL (1.20-3.40); #Monocytes 0.9 thou/uL (0.11-0.59); #Neutrophils 3.1 thou/uL (1.40-6.50); %Basophils 0.6 % (0.0-1.0); %Eosinophils 2.4 % (0.0-10.0); %Lymphocytes 35.3 % (21.0-51.0); %Monocytes 13.8 % (0.0-10.0); %Neutrophils 47.9 % (42.0-75.0); Hemoglobin 15.9 g/dL (14.0-18.0); Mean Corpuscular Hemoglobin 32.5 pg (27.0-31.0); Mean Corpuscular Volume 92.7 fL (78.0-98.0); Mean Platelet Volume 7.5 fL (7.4-10.4); Platelet Count 214 thou/uL (130-400); RBC Distribution Width 12.6 % (11.5-14.5); Red Blood Cell (RBC) Count 4.89 mill/uL (4.70-6.10); White Blood Cell (WBC) Count 6.5 thou/uL (4.8-10.8)
[2019-07-26 14:35] LABS: INR-International Normal Ratio 1.7; Prothrombin Time 19.5 sec (12.0-14.7)
[2019-07-26 14:38] LABS: Bacteria/HPF None Seen HPF (None Seen); Bilirubin Negative (Negative); Blood, Urine Negative (Negative); Clarity Clear (Clear); Glucose, Urine (Dipstick) Normal (Negative); Leukocyte Negative Leu/uL (Negative); Nitrite Negative (Negative); Protein, Urine (Dipstick) 20 mg/dL (Neg-Trace); RBC/HPF 0-3 HPF (0-3); Squamous Epithelial None Seen HPF (0-3); WBC/HPF 0-3 HPF (0-3)
[2019-07-26 14:57] LABS: Anion Gap 14 mmol/L (10-20); BUN (Urea Nitrogen) 19 mg/dL (8.4-25.7); Calc. Creatinine Clearance 0 mL/min (70-130); Calcium 9.4 mg/dL (7.8-10.44); Carbon Dioxide 25 mmol/L (23-31); Chloride 107 mmol/L (98-107); Estimated GFR-MDRD 71; Glucose 101 mg/dL (83-110); Potassium 4.1 mmol/L (3.5-5.1); Sodium 142 mmol/L (136-145)
[2019-07-27 16:49] LABS: SARS-CoV-2 MS2 Positive; SARS-CoV-2 N Gene Negative; SARS-CoV-2 S Gene Negative; SARS-CoV-2 orf1ab Negative
== END 2019-07-26 08:28 | disposition home or self-care (01) ==
LOC: LABBT 08:27
PROVIDERS: ATTEND Orthopaedic Surgery
DX: Z01.818 Encounter for other preprocedural examination (principal); Z11.59 Encounter for screening for other viral diseases; M17.12 Unilateral primary osteoarthritis, left knee
CPT/HCPCS: 80048; 81001; 85025; 85610; 87081; 93005; U0003; 87635; 93010

== ENCOUNTER 2019-08-03 18:18 | Inpatient (IN) | payer MEDICARE ==
[2019-08-03 19:17] LABS: Hemoglobin 10.1 g/dL (14.0-18.0); Mean Corpuscular HGB CONC 34.7 g/dL (32.0-36.0); Mean Corpuscular Hemoglobin 32.3 pg (27.0-31.0); Mean Corpuscular Volume 93.2 fL (78.0-98.0); Mean Platelet Volume 7.1 fL (7.4-10.4); Platelet Count 254 thou/uL (130-400); RBC Distribution Width 12.6 % (11.5-14.5); Red Blood Cell (RBC) Count 3.13 mill/uL (4.70-6.10); White Blood Cell (WBC) Count 8.6 thou/uL (4.8-10.8)
[2019-08-03 19:30] LABS: Band 7 % (5-11); Lymphocytes 4 % (21-51); MDiff Complete? YES; Monocytes 18 % (0-10); Neutrophil 70 % (42-75); Platelet Morphology Comment Appears Adequate; Polychromasia SLIGHT = 2-3 cells (100X) (0-2/hpf)
[2019-08-03 19:33] LABS: ALT (SGPT) 40 U/L (8-55); AST (SGOT) 32 U/L (5-34); Albumin 3.8 g/dL (3.4-4.8); Alkaline Phosphatase 68 U/L (40-110); Anion Gap 17 mmol/L (10-20); BUN (Urea Nitrogen) 24 mg/dL (8.4-25.7); Bilirubin, Total 0.8 mg/dL (0.2-1.2); Calc. Creatinine Clearance 0 mL/min (70-130); Calcium 9.5 mg/dL (7.8-10.44); Carbon Dioxide 22 mmol/L (23-31); Chloride 100 mmol/L (98-107); Estimated GFR-MDRD 57; Globulin 3.4 g/dL (2.4-3.5); Glucose 127 mg/dL (83-110); Potassium 4.5 mmol/L (3.5-5.1); Protein, Total 7.2 g/dL (5.8-8.1); Sodium 134 mmol/L (136-145)
--- NOTE | 2019-08-03 19:42 | CT ---
CT ANGIOGRAM OF THE CHEST: 08/03/19 HISTORY: Syncope. Recent knee replacement. COMPARISON: 08/04/17 TECHNIQUE: CT angiogram of the chest is performed in the axial plane. Three dimensional reformatted images are s ubmitted for interpretation. FINDINGS: No mediastinal mass, lymphadenopathy, or hematoma. Heart size is within normal limits. No significant pericardial fluid. There are scattered coronary artery calcifications. Upper abdomen demonstrates multiple incompletely evaluated hypodensities involving the hepatic parenc hyma. Trachea and central bronchi are patent. Linear densities in the left and right lower lobe may represe nt scar or subsegmental atelectasis. No pleural effusion or pneumothorax. No lytic or blastic lesions in the osseous structures. Adequate contrast opacification of the pulmonary arterial system to the level of the segmental arteri es. No filling defect to suggest thromboembolism. IMPRESSION: 1. No evidence of pulmonary artery embolism to the level of the segmental arteries. 2. Linear densities in the left and right lower lobe likely represent subsegmental atelectasis o r scar. POS: [facility]
[2019-08-03 19:48] LABS: CKMB 1.8 ng/mL (0-6.6)
[2019-08-03] MEDS ORDERED: Aspirin Chewable 81 MG TAB ONE (20:09)
[2019-08-03] MEDS ORDERED: Acetaminophen 650 MG Suppository PR PRN (21:16)
[2019-08-03] MEDS ORDERED: Ondansetron ODT 4 MG TAB PO PRN (21:16)
[2019-08-03] MEDS ORDERED: Ondansetron PF 4 MG/2 ML Vial IVP PRN (21:16)
--- NOTE | 2019-08-03 21:27 | PDOC.HHP ---
Hospitalist HPI - History of Present Illness near syncope History of Present Illness: Case of an 79y/o male with pmhx of valvular repalcement on warfarin, htn and hypercholesterolemia that comes to hosptial after a near syncope episode. patient refers he was recently discharge from hospital after a L total knee replacement who comes to hospital due to a near syncope episode. patient states he was on his usual state of health until yesterday when while getting a bath in which pt was seated, he tried to get up to exit the shower when he nearly pass out, patient refers became very weak and lightheaded for which family called the ems. upon evaluation patient was found to be hypotensive with his b/ p on 70s/40s for which he was brought to hospital for further evaluation. patient was treated with ivfs and hosptialist was called for further evaluation and management. patient denies any chest pain sob palpitatios or diaphoresis, states he was close but never lost consciousness. patient had taken percocet for pain management 1 hr before episode. Hospitalist ROS - Review of Systems All other systems reviewed; all pertinent +/- noted in HPI/Subj Hospitalist History - Past Medical History Cardiac: reports: HTN, Hyperlipidemia, Valve insufficiency - Past Surgical History Past Surgical History: reports: Total Knee Replacement Other Surgical History: valve replacement - Family History Family History: reports: cancer - Social History Smoking Status: Never smoker Alcohol: reports: None Drugs: reports: none Living Situation: With Family Activity level: uses cane/walker - Exam General Appearance: awake alert Eye: PERRL, anicteric sclera ENT: normocephalic atraumatic, no oropharyngeal lesions Neck: supple, symmetric, no JVD Heart: RRR, no murmur, no gallops Respiratory: CTAB, no wheezes, no rales, no ronchi Gastrointestinal: soft, non-tender, non-distended, normal bowel sounds Extremities: no cyanosis, no clubbing, no edema Skin: normal turgor, no lesions, no rashes Neurological: cranial nerve grossly intact, normal sensation to touch Musculoskeletal: normal tone, normal strength Psychiatric: normal affect, normal behavior, A&O x 3 Hospitalist Results - Labs Result Diagrams: 08/03/19 18:59 08/03/19 18:59 Lab results: WBC 8.6 thou/uL (4.8-10.8) 08/03/19 18:59 Hgb 10.1 g/dL (14.0-18.0) L 08/03/19 18:59 Hct 29.2 % (42.0-52.0) L 08/03/19 18:59 MCV 93.2 fL (78.0-98.0) 08/03/19 18:59 Plt Count 254 thou/uL (130-400) 08/03/19 18:59 Band Neuts % (Manual) 7 % (5-11) 08/03/19 18:59 Sodium 134 mmol/L (136-145) L 08/03/19 18:59 Potassium 4.5 mmol/L (3.5-5.1) 08/03/19 18:59 Chloride 100 mmol/L (98-107) 08/03/19 18:59 Carbon Dioxide 22 mmol/L (23-31) L 08/03/19 18:59 BUN 24 mg/dL (8.4-25.7) 08/03/19 18:59 Creatinine 1.23 mg/dL (0.7-1.3) 08/03/19 18:59 Glucose 127 mg/dL (83-110) H 08/03/19 18:59 Calcium 9.5 mg/dL (7.8-10.44) 08/03/19 18:59 Total Bilirubin 0.8 mg/dL (0.2-1.2) 08/03/19 18:59 AST 32 U/L (5-34) 08/03/19 18:59 ALT 40 U/L (8-55) 08/03/19 18:59 Alkaline Phosphatase 68 U/L (40-110) 08/03/19 18:59 CK-MB (CK-2) 1.8 ng/mL (0-6.6) 08/03/19 18:59 Troponin I 0.032 ng/mL (< 0.028) H 08/03/19 18:59 Serum Total Protein 7.2 g/dL (5.8-8.1) 08/03/19 18:59 Albumin 3.8 g/dL (3.4-4.8) 08/03/19 18:59 - EKG Interpretation EKG: no acute st changes - Radiology Interpretation CT scan - chest Additional Comment: no PE Hospitalist H&P A/P - Problem (1) Near syncope Status: Acute (2) Hypotension Status: Acute (3) Status post total knee replacement, left Code(s): Z96.652 - PRESENCE OF LEFT ARTIFICIAL KNEE JOINT Status: Acute (4) Dyslipidemia Code(s): E78.5 - HYPERLIPIDEMIA, UNSPECIFIED Status: Chronic (5) H/O mechanical aortic valve replacement Code(s): Z95.2 - PRESENCE OF PROSTHETIC HEART VALVE Status: Chronic (6) HTN (hypertension) Code(s): I10 - ESSENTIAL (PRIMARY) HYPERTENSION Status: Chronic Qualifiers: Hypertension type: essential hypertension Qualified Code(s): I10 - Essential (primary) hypertension - Plan Plan: - admit as obs - evaluate serial troponins - tsh - 2d echo - cardiac monitoring -continue home meds for chronic conditions
[2019-08-03 22:29] VITALS: BMI 29.4
[2019-08-03] MEDS: HYDROcodone/Acetaminophen 10/325 mg Tablet PO PRN (22:47)
[2019-08-03] MEDS: Acetaminophen 325 MG TAB PO PRN (22:47)
[2019-08-03 23:05] LABS: Troponin I 0.019 ng/mL (< 0.028); Troponin I 0.033 ng/mL (< 0.028)
[2019-08-04 01:41] LABS: Troponin I 0.016 ng/mL (< 0.028)
[2019-08-04 04:12] LABS: PTT 46.3 sec (22.9-36.1); Prothrombin Time 13.5 sec (12.0-14.7)
[2019-08-04 04:26] LABS: ALT (SGPT) 30 U/L (8-55); AST (SGOT) 26 U/L (5-34); Albumin 3.1 g/dL (3.4-4.8); Alkaline Phosphatase 55 U/L (40-110); Anion Gap 11 mmol/L (10-20); BUN (Urea Nitrogen) 26 mg/dL (8.4-25.7); Bilirubin, Total 0.6 mg/dL (0.2-1.2); Calc. Creatinine Clearance 70 mL/min (70-130); Calcium 8.3 mg/dL (7.8-10.44); Carbon Dioxide 23 mmol/L (23-31); Cardiac Risk 3.6 (Less than 4.5); Chloride 105 mmol/L (98-107); Cholesterol 134 mg/dl (< 200 Desired); Estimated GFR-MDRD 69; Globulin 2.9 g/dL (2.4-3.5); Glucose 114 mg/dL (83-110); HDL Cholesterol 37 mg/dL (>60 Neg Risk); LDL Cholesterol, Calculated 70 mg/dL; Potassium 4.3 mmol/L (3.5-5.1); Sodium 135 mmol/L (136-145); Triglycerides 137 mg/dL (Less than 150)
[2019-08-04 04:31] LABS: Band 5 % (5-11); Hemoglobin 8.5 g/dL (14.0-18.0); Lymphocytes 26 % (21-51); MDiff Complete? YES; Mean Corpuscular HGB CONC 32.9 g/dL (32.0-36.0); Mean Corpuscular Hemoglobin 30.5 pg (27.0-31.0); Mean Corpuscular Volume 92.8 fL (78.0-98.0); Mean Platelet Volume 6.7 fL (7.4-10.4); Monocytes 18 % (0-10); Neutrophil 51 % (42-75); Platelet Count 232 thou/uL (130-400); Platelet Morphology Comment Appears Adequate; RBC Distribution Width 12.6 % (11.5-14.5); RBC Morphology Normal; Red Blood Cell (RBC) Count 2.77 mill/uL (4.70-6.10); White Blood Cell (WBC) Count 6.5 thou/uL (4.8-10.8)
[2019-08-04] MEDS: HYDROcodone/Acetaminophen 10/325 mg Tablet PO PRN ×3 (08:55→22:51)
[2019-08-04] MEDS: Aspirin 81 mg Enteric Coated Tablet PO SCH (08:55)
[2019-08-04] MEDS: Acetaminophen 325 MG TAB PO PRN (09:01)
[2019-08-04 13:36] LABS: Hemoglobin 8.5 g/dL (14.0-18.0)
[2019-08-04] MEDS ORDERED: Enoxaparin Sodium 80 MG/0.8 ML SYRINGE SC SCH (14:45)
[2019-08-04] MEDS ORDERED: Warfarin Sodium 7.5 MG TAB PO SCH (17:00)
[2019-08-04] MEDS: Sodium Chloride 0.9% 1,000 ML IV SCH (18:16)
--- NOTE | 2019-08-04 19:31 | PRG ---
DATE OF SERVICE: 08/04/2019 SUBJECTIVE: A 79-year-old male with hypertension, mechanical aortic valve with recent knee surgery, presented to the hospital after a syncopal episode at home. He also felt lightheaded along with nausea and vomiting. At this time, he denies any complaints. No fever, chills, chest pain, palpitations, or focal neurologic deficit reported. REVIEW OF SYSTEMS: All other review of systems were reviewed and were found negative. PHYSICAL EXAMINATION: VITAL SIGNS: Next orthostatic vitals were reviewed. His supine blood pressure was 135/80. His standing blood pressure was 119/60 with sitting blood pressure of 114/55. Temperature was 98.3 with pulse rate of 89, respirations of 18. GENERAL: A 79-year-old male in no apparent distress. LUNGS: Clear to auscultation bilaterally. No wheezing, rales, or rhonchi. HEART: S1 and S2 present. Regular rate and rhythm. No rubs or gallops. ABDOMEN: Soft. Bowel sounds present. No rebound or guarding. BACK: No costovertebral angle tenderness. EXTREMITIES: No calf tenderness. NEUROLOGIC: Grossly nonfocal. Power was 5/5 in all extremities. Sensation to touch was normal bilaterally. Reflexes were equivocal. PSYCHIATRY: Normal affect. Alert, awake, and oriented x3. LABORATORY FINDINGS: Hemoglobin 8.5 with WBC 6.5. INR of 1.0. Chemistry showed sodium 134 with potassium 4.5, chloride 100, bicarb 22, BUN of 24, creatinine 1.23. Troponin initially was 0.032, repeat was 0.019. BNP was 31. TSH was 1.5. Echocardiogram is pending at this time. CT angiogram of the chest by my review was negative for pulmonary embolism. Telemetry monitoring by my review showed sinus rhythm. IMPRESSION: 1. Syncopal episode of unclear etiology. 2. Hypotension. His blood pressure initially was 70/40. 3. Hyponatremia. 4. Recent knee surgery. 5. Mechanical aortic valve with subtherapeutic INR. 6. History of hypertension. 7. Dyslipidemia. 8. Hyponatremia, present on admission. 9. Anemia probably due to nutritional deficiency. 10. Chronic kidney disease stage 3. PLAN: Echocardiogram is pending at this time. We will continue telemetry monitoring. We will add gentle IV hydration. We will hold amlodipine for now. Due to subtherapeutic INR, we will start him on 1 mg/kg of Lovenox. We will continue warfarin. We will check PT/INR in a.m. We will consult Cardiology. Recheck labs in a.m. Lisinopril will be held. We will resume statins. The patient understands the above plan of care. Current medications were reviewed. Job ID: [id number]
[2019-08-04] MEDS: Simvastatin 5 MG TAB PO SCH (20:00)
[2019-08-04] MEDS: Enoxaparin Sodium 80 MG/0.8 ML SYRINGE SC SCH (20:01)
[2019-08-04] MEDS ORDERED: Prevnar 13-Val Conj/PF 0.5 ML SYRINGE IM ONE (21:00)
[2019-08-05 03:56] LABS: #Eosinphils 0.1 thou/uL (0.0-0.7); #Monocytes 0.9 thou/uL (0.11-0.59); #Neutrophils 4.3 thou/uL (1.40-6.50); %Basophils 0.6 % (0.0-1.0); %Lymphocytes 15.8 % (21.0-51.0); %Monocytes 14.5 % (0.0-10.0); Hemoglobin 8.7 g/dL (14.0-18.0); Mean Corpuscular HGB CONC 34.3 g/dL (32.0-36.0); Mean Corpuscular Hemoglobin 31.9 pg (27.0-31.0); Mean Corpuscular Volume 92.9 fL (78.0-98.0); Mean Platelet Volume 6.3 fL (7.4-10.4); Platelet Count 284 thou/uL (130-400); RBC Distribution Width 12.5 % (11.5-14.5); Red Blood Cell (RBC) Count 2.72 mill/uL (4.70-6.10); White Blood Cell (WBC) Count 6.4 thou/uL (4.8-10.8)
[2019-08-05 04:00] LABS: Prothrombin Time 13.4 sec (12.0-14.7)
[2019-08-05 04:18] LABS: Anion Gap 12 mmol/L (10-20); BUN (Urea Nitrogen) 23 mg/dL (8.4-25.7); Calc. Creatinine Clearance 80 mL/min (70-130); Calcium 8.3 mg/dL (7.8-10.44); Carbon Dioxide 22 mmol/L (23-31); Chloride 105 mmol/L (98-107); Estimated GFR-MDRD 82; Glucose 113 mg/dL (83-110); Magnesium 2.2 mg/dL (1.6-2.6); Potassium 4.3 mmol/L (3.5-5.1); Sodium 135 mmol/L (136-145)
[2019-08-05] MEDS: HYDROcodone/Acetaminophen 10/325 mg Tablet PO PRN ×3 (05:24→21:06)
[2019-08-05] MEDS: Sodium Chloride 0.9% 1,000 ML IV SCH (07:23)
[2019-08-05] MEDS: Enoxaparin Sodium 80 MG/0.8 ML SYRINGE SC SCH ×2 (10:02→20:38)
[2019-08-05] MEDS: Aspirin 81 mg Enteric Coated Tablet PO SCH (10:02)
--- NOTE | 2019-08-05 12:04 | PDOC.HOSPP ---
- Subjective Encounter Date: 08/05/19 Encounter Time: 11:00 Subjective: Patient seen and examined for Syncope. No new CP/SOB or palpitations. No new complaints. No overnight events - Objective Vital Signs & Weight: Vital Signs (12 hours) Temp Pulse Pulse Pulse Pulse Resp BP 08/05/19 11:42 98.2 F 84 18 08/05/19 09:19 80 89 80 137/70 08/05/19 07:17 98.0 F 79 16 08/05/19 05:27 08/05/19 03:32 98.4 F 82 18 BP BP BP BP BP Pulse Ox 08/05/19 11:42 142/69 H 98 08/05/19 09:19 124/66 144/70 H 08/05/19 07:17 140/71 95 08/05/19 05:27 157/77 H 156/70 H 08/05/19 03:32 159/73 H 96 Weight Weight 179 lb 6.4 oz I&O: 08/04/19 08/05/19 08/06/19 06:59 06:59 06:59 Intake Total 800 2460 Output Total 800 1700 Balance 0 760 Result Diagrams: 08/05/19 03:41 08/05/19 03:41 EKG Reviewed by me: Yes (Tele paced , PAT last night) Hospitalist ROS - Review of Systems Respiratory: denies: cough, dry, shortness of breath, hemoptysis, SOB with excertion, pleuritic pain, sputum, wheezing, other Cardiovascular: denies: chest pain, palpitations, orthopnea, paroxysmal noc. dyspnea, edema, light headedness, other - Medication Medications: Active Medications Generic Name Dose Route Start Last Admin Trade Name Freq PRN Reason Stop Dose Admin Acetaminophen 650 mg 08/03/19 21:16 08/04/19 09:01 Tylenol PO 650 mg Q4H PRN Administration Headache/Fever/Mild Pain (1-3) Hydrocodone Bitart/Acetaminophen 1 tab 08/03/19 22:25 08/04/19 08:55 [place] 10/325 PO 1 tab Q8HR PRN Administration Moderate Pain (4-6) Hydrocodone Bitart/Acetaminophen 2 tab 08/04/19 12:42 08/05/19 11:45 [place] 10/325 PO 2 tab Q6H PRN Administration Severe Pain (7-10) Aspirin 81 mg 08/04/19 09:00 08/05/19 10:02 Ecotrin PO 81 mg DAILY SHAUN Administration Enoxaparin Sodium 80 mg 08/04/19 21:00 08/05/19 10:02 Lovenox SC Not Given 0900,2100 [facility] Sodium Chloride 1,000 mls @ 75 mls/hr 08/04/19 17:30 08/05/19 07:23 Normal Saline 0.9% IV 1,000 mls .[id number] SHAUN Administration Simvastatin 10 mg 08/04/19 21:00 08/04/19 20:00 Zocor PO 10 mg HS SHAUN Administration Warfarin Sodium 7.5 mg 08/04/19 17:00 08/04/19 16:19 Coumadin PO 7.5 mg [id number]@1700 SHAUN Administration - Exam General Appearance: NAD Heart: RRR, no gallops, no rubs Respiratory: no wheezes, no rales, no ronchi Gastrointestinal: non-tender, non-distended, normal bowel sounds Extremities: no edema (RLE), 1+ LE edema (LLE) Neurological: no new deficit Psychiatric: normal affect, A&O x 3 Hosp A/P - Plan PT/OT, DVT proph w/SCDs 1. Syncopal episode of unclear etiology. 2. Hypotension. His blood pressure initially was 70/40. 3. Hyponatremia. 4. PAT. 5. Mechanical aortic valve (1997) with subtherapeutic INR. 6. History of hypertension. 7. Dyslipidemia. 8. Hyponatremia, present on admission. 9. Anemia probably due to nutritional deficiency. 10. Chronic kidney disease stage 3. 11. Recent knee surgery. PLAN: Pt is refusing Lovenox despite subtherapeutic INR - Pt understands the risk of this. Echocardiogram - reviewed DC IVF later today Await Cardio input Amlodipine and Lisinopril on hold AM labs including PT/INR Cont other meds as above
[2019-08-05] MEDS ORDERED: Enoxaparin Sodium 80 MG/0.8 ML SYRINGE SC SCH (13:00)
--- NOTE | 2019-08-05 13:16 | CON ---
DATE OF CONSULTATION: REASON FOR CONSULTATION: Dizziness. HISTORY OF PRESENT ILLNESS: Mr. Vivar is a very pleasant 79-year-old gentleman, who recently underwent knee replacement. He states he had dizziness on several occasions. He presented to the emergency room with the above. He was found to be subtherapeutic on his INR. His INR was 1.0. He has a previous history of mechanical aortic valve on Coumadin. He has had a PAC present on the monitor. PAST MEDICAL HISTORY: Hypertension, hyperlipidemia, and aortic valve replacement. SOCIAL HISTORY: No current tobacco or alcohol use. ALLERGIES: NONE. HOME MEDICATIONS: 1. Saw [place]. 2. Lovastatin. 3. Aspirin. 4. Lisinopril. 5. Amlodipine. 6. Coumadin. 7. Calcium. REVIEW OF SYSTEMS: A 10-point review of systems is reviewed and as above, otherwise negative. PHYSICAL EXAMINATION: GENERAL: Patient is a pleasant male, who is in no acute distress. The patient appears their stated age. VITAL SIGNS: Blood pressure 142/69, pulse 84, and temperature 98.2. NEUROLOGIC: The patient is alert and oriented x3 with no focal neurologic deficits. HEENT: Sclerae without icterus. Mouth has moist mucous membranes with normal pallor. NECK: No JVD. Carotid upstroke brisk. No bruits bilaterally. LUNGS: Clear to auscultation with unlabored respirations. BACK: No scoliosis or kyphosis. CARDIAC: Regular rate and rhythm with normal S1 and S2. No S3 or S4 noted. No significant rubs, murmurs, thrills, or gallops noted throughout the precordium. PMI is not displaced. There is no parasternal heave. ABDOMEN: Soft, nontender, nondistended. No peritoneal signs present. No hepatosplenomegaly. No abnormal striae. EXTREMITIES: 2+ femoral and 2+ dorsalis pedis pulses. No cyanosis, clubbing, or edema. SKIN: No gross abnormalities. LABORATORY DATA: Recent echo with Doppler dated 06/21/2019, LVEF 55% to 60% with normal mechanical aortic valve prosthesis. Recent noninvasive stress study dated 06/18/2019, normal with no ischemia present. LVEF 50%. IMPRESSION: 1. Dizziness and lightheadedness. 2. Mechanical aortic valve replacement. RECOMMENDATIONS: Mr. Vivar does have PAC noted on the monitor which maybe contributing to his symptoms. I agree with Lovenox 1 mg/kg subcu q.12h until INR of 2 to 3. We would also recommend low-dose beta blockade. We will add calcium channel blockade 120 mg subcu q.a.m. with first dose now. Otherwise, I have no further recommendations. Job ID: [id number]
[2019-08-05] MEDS: Acetaminophen 325 MG TAB PO PRN (16:27)
[2019-08-05] MEDS ORDERED: Warfarin Sodium 5 MG TAB PO SCH (17:00)
[2019-08-05] MEDS: Simvastatin 5 MG TAB PO SCH (20:37)
[2019-08-05] MEDS: Polyethylene Glycol 3350 17 GM Packet PO SCH (20:38)
[2019-08-06 04:13] LABS: Hemoglobin 8.4 g/dL (14.0-18.0); Platelet Count 331 thou/uL (130-400)
[2019-08-06 04:17] LABS: INR-International Normal Ratio 1.1; Prothrombin Time 13.9 sec (12.0-14.7)
[2019-08-06 04:32] LABS: Anion Gap 11 mmol/L (10-20); BUN (Urea Nitrogen) 20 mg/dL (8.4-25.7); Calc. Creatinine Clearance 78 mL/min (70-130); Calcium 8.4 mg/dL (7.8-10.44); Carbon Dioxide 23 mmol/L (23-31); Chloride 103 mmol/L (98-107); Estimated GFR-MDRD 81; Glucose 108 mg/dL (83-110); Potassium 4.2 mmol/L (3.5-5.1); Sodium 133 mmol/L (136-145)
[2019-08-06] MEDS: Enoxaparin Sodium 80 MG/0.8 ML SYRINGE SC SCH ×2 (08:51→20:34)
[2019-08-06] MEDS: HYDROcodone/Acetaminophen 10/325 mg Tablet PO PRN ×2 (08:51→15:55)
[2019-08-06] MEDS: Aspirin 81 mg Enteric Coated Tablet PO SCH (08:51)
--- NOTE | 2019-08-06 15:20 | PDOC.HOSPP ---
- Subjective Encounter Date: 08/06/19 Encounter Time: 12:30 Subjective: Patient seen and examined for gen weakness/syncope. No CP/palpitations. No new complaints. No overnight events - Objective Vital Signs & Weight: Vital Signs (12 hours) Temp Pulse Pulse Pulse Resp BP BP 08/06/19 11:15 98.1 F 85 17 08/06/19 09:33 86 85 137/65 133/65 08/06/19 07:17 99.6 F 82 18 08/06/19 04:24 08/06/19 04:21 98.4 F 84 16 BP BP BP Pulse Ox 08/06/19 11:15 155/74 H 100 08/06/19 09:33 08/06/19 07:17 146/76 H 94 L 08/06/19 04:24 151/76 H 136/69 08/06/19 04:21 140/68 98 Weight Weight 177 lb 9.6 oz I&O: 08/05/19 08/06/19 08/07/19 06:59 06:59 06:59 Intake Total 2460 2075 Output Total 1700 2100 Balance 760 -25 Result Diagrams: 08/06/19 03:53 08/06/19 03:53 EKG Reviewed by me: Yes (PAT this morning) Hospitalist ROS - Review of Systems Respiratory: denies: cough, dry, shortness of breath, hemoptysis, SOB with excertion, pleuritic pain, sputum, wheezing, other Cardiovascular: denies: chest pain, palpitations, orthopnea, paroxysmal noc. dyspnea, edema, light headedness, other Gastrointestinal: denies: nausea, vomiting, abdominal pain, diarrhea, constipation, melena, hematochezia, other - Medication Medications: Active Medications Generic Name Dose Route Start Last Admin Trade Name Freq PRN Reason Stop Dose Admin Acetaminophen 650 mg 08/03/19 21:16 08/05/19 16:27 Tylenol PO 650 mg Q4H PRN Administration Headache/Fever/Mild Pain (1-3) Hydrocodone Bitart/Acetaminophen 1 tab 08/03/19 22:25 08/04/19 08:55 [place] 10/325 PO 1 tab Q8HR PRN Administration Moderate Pain (4-6) Hydrocodone Bitart/Acetaminophen 2 tab 08/04/19 12:42 08/06/19 08:51 [place] 10/325 PO 2 tab Q6H PRN Administration Severe Pain (7-10) Aspirin 81 mg 08/04/19 09:00 08/06/19 08:51 Ecotrin PO 81 mg DAILY SHAUN Administration Diltiazem HCl 120 mg 08/06/19 09:00 08/06/19 08:52 Cardizem Cd PO 120 mg DAILY SHAUN Administration Polyethylene Glycol 17 gm 08/05/19 21:00 08/05/19 20:38 Miralax PO 17 gm HS SHAUN Administration Simvastatin 10 mg 08/04/19 21:00 08/05/19 20:37 Zocor PO 10 mg HS SHAUN Administration - Exam General Appearance: NAD Heart: RRR, no gallops Respiratory: no wheezes, no ronchi Gastrointestinal: non-tender, non-distended, normal bowel sounds Extremities: no cyanosis, no clubbing Neurological: no new deficit Psychiatric: normal affect, A&O x 3 Hosp A/P - Plan DVT proph w/lovenox, DVT proph w/SCDs 1. Syncope prob due to PAT 2. Hypotension. improved 3. Hyponatremia. 4. Anemia probably due to nutritional deficiency. 5. Mechanical aortic valve (1997) with subtherapeutic INR. 6. History of hypertension. 7. Dyslipidemia. 8. Hyponatremia, present on admission. 9. Recent knee surgery. 10. Chronic kidney disease stage 3. PLAN: Cont PO Cardizem Cont Lovenox until INR therapeutic Increase Warfarin to 7.5 mg daily Amlodipine dced Lisinopril on hold AM labs including PT/INR Cont other meds as above
[2019-08-06] MEDS: Warfarin Sodium 7.5 MG TAB PO SCH (16:00)
--- NOTE | 2019-08-06 18:30 | PRG ---
DATE OF SERVICE: 08/06/2019 SUBJECTIVE: Mr. Vivar is doing well. He continues to have runs of PAT. I am unsure whether these runs are truly symptomatic or asymptomatic. He was placed on diltiazem yesterday with continued breakthrough. His INR also is subtherapeutic at 1.1. OBJECTIVE: VITAL SIGNS: Blood pressure 141/64, pulse 79, temperature 98.1. LUNGS: Clear to auscultation. HEART: Regular rate and rhythm. ABDOMEN: Soft, nontender, nondistended. EXTREMITIES: No edema. PERTINENT LABS: Hemoglobin 8.4, hematocrit 24.7. IMPRESSION: 1. Paroxysmal atrial tachycardia. 2. Dizziness, lightheadedness, and presyncope. 3. Status post AVR. RECOMMENDATIONS: 1. Continue Lovenox. 2. The patient is on Coumadin and would recommend INR level between 2 and 3. 3. I have told the pharmacy. 4. Recommend EP consultation to assess for PAT. Job ID: [id number]
[2019-08-06] MEDS: Polyethylene Glycol 3350 17 GM Packet PO SCH (20:34)
[2019-08-06] MEDS: Simvastatin 5 MG TAB PO SCH (20:35)
[2019-08-06] MEDS: Acetaminophen 325 MG TAB PO PRN (20:35)
[2019-08-07] MEDS: HYDROcodone/Acetaminophen 10/325 mg Tablet PO PRN (03:51)
[2019-08-07 04:34] LABS: INR-International Normal Ratio 1.1; Prothrombin Time 13.9 sec (12.0-14.7)
[2019-08-07 04:37] LABS: Hemoglobin 8.8 g/dL (14.0-18.0); Platelet Count 433 thou/uL (130-400)
[2019-08-07 04:47] LABS: Anion Gap 12 mmol/L (10-20); BUN (Urea Nitrogen) 22 mg/dL (8.4-25.7); Calc. Creatinine Clearance 81 mL/min (70-130); Calcium 8.6 mg/dL (7.8-10.44); Carbon Dioxide 22 mmol/L (23-31); Chloride 102 mmol/L (98-107); Estimated GFR-MDRD 85; Glucose 108 mg/dL (83-110); Potassium 4.1 mmol/L (3.5-5.1); Sodium 132 mmol/L (136-145)
[2019-08-07] MEDS: Enoxaparin Sodium 80 MG/0.8 ML SYRINGE SC SCH ×2 (08:27→21:24)
[2019-08-07] MEDS: Aspirin 81 mg Enteric Coated Tablet PO SCH (08:27)
[2019-08-07] MEDS: Acetaminophen 325 MG TAB PO PRN ×2 (08:32→21:24)
--- NOTE | 2019-08-07 09:43 | PDOC.EP ---
- Subjective Date: 08/07/19 Time: 09:42 Interval History: Patient feels well today. No recurrent near syncope. No heart racing, palpitations, chest pain/pressure, dizziness, or passing out. - Review of Systems Constitutional: denies: chills, fever, weakness Respiratory: denies: cough, shortness of breath, SOB with excertion, wheezing Cardiology: denies: chest pain, heart racing, light headedness, palpitations, passing out Gastrointestinal: denies: constipation Musculoskeletal: reports: unstable gait, leg pain. denies: neck pain, shoulder pain, foot pain - Objective Allergies/Adverse Reactions: Allergies Allergy/AdvReac Type Severity Reaction Status Date / Time No Known Drug Allergies Allergy Verified 07/29/19 14:47 Current Medications Acetaminophen (Tylenol) 650 mg PO Q4H PRN PRN Reason: Headache/Fever/Mild Pain (1-3) Last Admin: 08/07/19 08:32 Dose: 650 mg Acetaminophen (Tylenol) 650 mg [place] Q4H PRN PRN Reason: Headache/Fever/Mild Pain (1-3) Hydrocodone Bitart/Acetaminophen ([place] 10/325) 1 tab PO Q8HR PRN PRN Reason: Moderate Pain (4-6) Last Admin: 08/07/19 03:51 Dose: 1 tab Hydrocodone Bitart/Acetaminophen ([place] 10/325) 2 tab PO Q6H PRN PRN Reason: Severe Pain (7-10) Last Admin: 08/06/19 15:55 Dose: 2 tab Aspirin (Ecotrin) 81 mg PO DAILY [facility] Last Admin: 08/07/19 08:27 Dose: 81 mg Diltiazem HCl (Cardizem Cd) 120 mg PO DAILY [facility] Last Admin: 08/07/19 08:26 Dose: 120 mg Enoxaparin Sodium (Lovenox) 80 mg SC 0900,2100 [facility] Last Admin: 08/07/19 08:27 Dose: 80 mg Miscellaneous Medication (Pharmacy To Dose) 1 each PO .WARFARIN [facility] Ondansetron HCl (Zofran Odt) 4 mg PO Q6H PRN PRN Reason: Nausea/Vomiting Ondansetron HCl (Zofran) 4 mg IVP Q6H PRN PRN Reason: Nausea/Vomiting Polyethylene Glycol (Miralax) 17 gm PO HS [facility] Last Admin: 08/06/19 20:34 Dose: 17 gm Simvastatin (Zocor) 10 mg PO HS [facility] Last Admin: 08/06/19 20:35 Dose: 10 mg Warfarin Sodium (Coumadin) 7.5 mg PO 1700 [facility] Last Admin: 08/06/19 16:00 Dose: 7.5 mg Vital Signs & Weight: Vital Signs Temp Pulse Resp BP Pulse Ox 08/07/19 03:40 97.6 F 75 18 137/65 97 Weight 2.845 oz I/O: I/O 08/06/19 08/07/19 08/08/19 06:59 06:59 06:59 Intake Total 2074 1440 Output Total 2099 2225 Balance -72 -472 - Physical Exam General: alert & oriented x3, appears well, no apparent distress, speech clear, affect appropriate HEENT: mucus membranes moist, normocephaly Neck: supple neck, midline trachea, no JVD/HJR, no masses, no bruit, no lymphadenopathy, no thromegaly Cardiology: regular rate and rhythm, no murmur, regular rate, regular rhythm, PMI nondisplaced Lungs: clear to auscultation, normal breath sounds, no wheeze, rales, rhonchi Neurology: cranial nerve 2-12 intact, grossly intact, no lateralizing findings Abdomen: unremarkable, active bowel sounds, no pulsations/bruits Extremities: dry, strong pulses, warm - Labs Result Diagrams: 08/07/19 04:14 08/07/19 04:14 - EKG Interpretation EKG Method: Telemetry EKG shows: Sinus rhythm (RBBB, rare PVCs) - Assessment/Plan Assessment/Plan: 1. Near syncope 2. PAT runs 3. NSVT 4. PVCs 5. Right bundle branch block Recommend initiating beta slava therapy for treatment of his ectopy and outpatient monitor. Rare PVCs seen on tele. Episode sounds orthostatic/vagal. Would recommend a 30 day event monitor upon DC.
--- NOTE | 2019-08-07 09:47 | PRG ---
DATE OF SERVICE: 08/07/2019 SUBJECTIVE: Mr. Vivar is doing well. He has some knee pain. OBJECTIVE: VITAL SIGNS: His blood pressure is 137/65, pulse 75 and regular. LUNGS: Clear. CARDIAC: Normal S1, normal S2. ABDOMEN: Soft, nontender. EXTREMITIES: No edema in the left knee. Postoperative status, mild edema on the left, none on the right. ASSESSMENT: 1. Previous flight mechanic aortic valve with subtherapeutic INR of 1.1. 2. Recent near syncopal episode appears to be orthostatic hypotension. Blood pressure was found to be low at that time. 3. Nonsustained SVT. PLAN: 1. He is back on Coumadin. 2. He is on enoxaparin. 3. He will probably be released home soon to continue the enoxaparin at home. Job ID: [id number]
--- NOTE | 2019-08-07 11:05 | CON ---
DATE OF CONSULTATION: 08/06/2019 REASON FOR CONSULTATION: Near-syncope, atrial ectopy. Dr. Emmett Casey performed the consultation. HISTORY OF PRESENT ILLNESS: Mr. Vivar is a pleasant 79-year-old gentleman, who recently underwent total knee replacement. He has had near syncope with dizziness on several occasions. He presented to the emergency room with those complaints for further evaluation. The particular near syncopal episode, he was concerned about occurred when he was getting a bath while he was seated and he tried to get up to exit the shower when he nearly passed out, feeling very weak and lightheaded. He was found to be hypotensive with a blood pressure of 70/40 approximately and was brought to the hospital for further evaluation. On telemetry, he has been seen to have some ectopic beats, which were thought to possibly be a factor in his symptoms, thus prompting EP consultation. Of note, he has a mechanical aortic valve as well and is chronically on warfarin for this. REVIEW OF SYSTEMS: Mr. Vivar is currently feeling well. He denies any heart racing, palpitations, chest pain, pressure, or recurrent syncope or near syncope since admission. He is not having any stroke or stroke-like symptoms. He has no orthopnea. No dyspnea on exertion. No chronic shortness of breath. Otherwise, a 12-point review of systems was negative and as per HPI. PAST MEDICAL HISTORY: 1. Mechanical aortic valve. 2. Chronic warfarin therapy for mechanical aortic valve. 3. Hypertension. 4. Hyperlipidemia. 5. 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 SOCIAL HISTORY: No alcohol, tobacco, or illicit drug use. ALLERGIES: NONE. HOME MEDICATIONS: Include; 1. [place] post knee replacement. 2. Aspirin 81 mg daily. 3. Norvasc 5 mg daily. 4. Warfarin 5 to 7.5 mg p.o. daily as directed. 5. Saw [place] 500 mg daily. 6. Lovastatin 20 mg p.o. q.p.m. 7. Lisinopril 20 mg b.i.d. 8. Calcium 600 mg daily. FAMILY HISTORY: Denies family history of sudden cardiac or early-onset coronary artery disease. No family history of arrhythmias or problems with anesthesia. OBJECTIVE: VITAL SIGNS: Temperature 97.6, pulse 75, blood pressure 137/65, respirations 18, and oxygen is 97% on room air. GENERAL: The patient is alert and oriented. Speech is clear. Affect is appropriate. He is in no apparent distress. At the time the exam, he is resting comfortably in bed. HEENT: He is normocephalic and atraumatic. His sclerae are anicteric. EOMs are intact. Oral mucosa is moist and pink with adequate dentition. NECK: Supple without jugular venous distention. There is no lymphadenopathy. His trachea is midline. There is no thyromegaly. HEART: His heart rate is with crisp S1 and S2. PMI is nondisplaced. LUNGS: Clear to auscultation bilaterally without wheezes, crackles, or rhonchi. Respirations are even and unlabored with good bilateral excursion. ABDOMEN: Soft and nontender without palpable masses. Hepatojugular reflux is negative. Positive bowel tones are noted throughout. EXTREMITIES: Warm and dry to touch. Well perfused without clubbing, cyanosis, or edema. NEUROLOGIC: Grossly intact and nonfocal with no unilateral deficits noted. His gait is limited with his recent knee replacement. DATABASE: Telemetry and EKG show sinus rhythm with a right bundle-branch block. There are occasional PAT runs noted that are self-limiting, nonsustained. He also has occasional nonsustained VT as well as PVCs, monomorphic. Echocardiogram on 08/04/2019, LVEF estimated at 50% to 55% with mild concentric left ventricular hypertrophy. Mild mitral regurgitation, mild tricuspid regurgitation. Left and right atriums are of normal size. IMPRESSION: 1. Near syncope. 2. Paroxysmal atrial tachycardia. 3. Premature ventricular complexes, monomorphic. 4. Nonsustained ventricular tachycardia. 5. Right bundle branch block. 6. Recent left knee replacement. PLAN AND RECOMMENDATIONS: Mr. Vivar is a delightful 79-year-old gentleman with a recent near syncopal episode, prompting his visit to the hospital. Based on his presentation and symptoms, this does sound orthostatic in nature. On telemetry, he is seen to have a short nonsustained paroxysmal atrial tachycardia runs as well as nonsustained VT and occasional PVCs. He is not currently on any AV eugenia blocking or beta-slava medications. For now, I would recommend treating with beta blockers and titrating up as tolerated. He would likely benefit from an outpatient monitor for continued evaluation as beta-slava therapy is initiated. Antiarrhythmic therapy or ablation in the future. Thank you for allowing me to participate in the care of this patient. Job ID: [id number]
[2019-08-07] MEDS ORDERED: Magnesium Citrate 300 ML BOT PO PRN (13:57)
[2019-08-07] MEDS ORDERED: Bisacodyl 10 MG SUPP PR SCH (14:45)
[2019-08-07] MEDS ORDERED: Magnesium Citrate 300 ML BOT PO SCH (14:45)
[2019-08-07] MEDS: Warfarin Sodium 7.5 MG TAB PO SCH (17:34)
[2019-08-07] MEDS ORDERED: Sodium Chloride 0.9% 500 ML IV SCH (18:30)
--- NOTE | 2019-08-07 21:17 | CT ---
CT OF THE ABDOMEN AND PELVIS WITH IV CONTRAST: 08/07/19 INDICATION: 79-year-old male with lower abdominal pain with constipation. COMPARISON: CTA of the thorax dated 08/03/19, CT of the abdomen and pelvis dated 08/07/17 and 08/01/17. FINDINGS: There is subsegmental atelectasis involving both lower lobes. There has been new development of peripheral portal venous gas within the right and left hepatic lobe . Numerous scattered small cysts within the liver are similar appearing. The gallbladder is mildly distended. The pancreas is normal appearing. The adrenal glands are normal appearing. There is stable bilateral renal cysts. No hydronephrosis is evident. There is a nonobstruc ting calculus at the inferior pole of the right kidney which is stable measuring 6.7 mm. A calcified granuloma within the spleen. No free fluid is evident. No free air is demonstrated. There are injection sites involving the lower anterior abdominal wall. There is a prominent amount of retained stool within the rectum. There is suspicion for a small amount of gas within the anterior a spect of the rectal wall. There is no evidence of gas within the inferior mesenteric vein or portal vein itself. The small bowel appears of normal caliber without overt evidence of pneumatosis. No free fluid is evident. The prostate is enlarged. The bladder is moderately distended. No definite acute o sseous abnormality is evident. There are scattered degenerative and osteoarthritic changes. IMPRESSION: 1. Interval development of peripheral portal venous gas within the right and left hepatic lobe. The most likely site of origin is a prominent amount of retained stool within the rectal vault where there possibly is an intimal injury to the anterior aspect of the rectal vault from the retained stoo l. Small amounts of gas are suspected within the anterior rectal wall. GI consultation is recommended . 2. Bibasilar atelectasis. 3. Hepatic and renal cysts. 4. Prostate enlargement. 5. Moderate bladder distention. POS: BH
[2019-08-07] MEDS: Simvastatin 5 MG TAB PO SCH (21:24)
[2019-08-07] MEDS: Polyethylene Glycol 3350 17 GM Packet PO SCH (21:24)
[2019-08-07] MEDS: Senokot S 8.6-50 MG TAB PO SCH (21:25)
--- NOTE | 2019-08-07 23:49 | PDOC.HOSPP ---
- Subjective Encounter Date: 08/07/19 Encounter Time: 13:00 Subjective: Patient seen and examined for Gen weakness. No CP/SOB/syncope. No new complaints. No overnight events - Objective Vital Signs & Weight: Vital Signs (12 hours) Temp Pulse Resp BP Pulse Ox 08/07/19 20:44 98.6 F 75 15 136/67 96 08/07/19 15:32 98.8 F 79 18 147/69 H 97 08/07/19 12:51 97.9 F 83 15 100/57 L 94 L Weight Weight 2.845 oz I&O: 08/06/19 08/07/19 08/08/19 06:59 06:59 06:59 Intake Total 2075 1440 120 Output Total 2100 2225 300 Balance -25 -785 -180 Result Diagrams: 08/08/19 04:12 08/08/19 04:12 EKG Reviewed by me: Yes (Tele SR) Hospitalist ROS - Review of Systems Respiratory: denies: cough, dry, shortness of breath, hemoptysis, SOB with excertion, pleuritic pain, sputum, wheezing, other Cardiovascular: denies: chest pain, palpitations, orthopnea, paroxysmal noc. dyspnea, edema, light headedness, other Gastrointestinal: reports: constipation. denies: nausea, vomiting, abdominal pain, diarrhea, melena, hematochezia, other - Medication Medications: Active Medications Generic Name Dose Route Start Last Admin Trade Name Freq PRN Reason Stop Dose Admin Acetaminophen 650 mg 08/03/19 21:16 08/07/19 21:24 Tylenol PO 650 mg Q4H PRN Administration Headache/Fever/Mild Pain (1-3) Hydrocodone Bitart/Acetaminophen 1 tab 08/03/19 22:25 08/07/19 03:51 [place] 10/325 PO 1 tab Q8HR PRN Administration Moderate Pain (4-6) Hydrocodone Bitart/Acetaminophen 2 tab 08/04/19 12:42 08/06/19 15:55 [place] 10/325 PO 2 tab Q6H PRN Administration Severe Pain (7-10) Aspirin 81 mg 08/04/19 09:00 08/07/19 08:27 Ecotrin PO 81 mg DAILY SHAUN Administration Diltiazem HCl 120 mg 08/06/19 09:00 08/07/19 08:26 Cardizem Cd PO 120 mg DAILY SHAUN Administration Enoxaparin Sodium 80 mg 08/06/19 21:00 08/07/19 21:24 Lovenox SC 80 mg 0900,2100 SHAUN Administration Polyethylene Glycol 17 gm 08/05/19 21:00 08/07/19 21:24 Miralax PO Not Given HS SHAUN Senna/Docusate Sodium 2 tab 08/07/19 21:00 08/07/19 21:25 Senokot S PO Not Given BID SHAUN Simvastatin 10 mg 08/04/19 21:00 08/07/19 21:24 Zocor PO 10 mg HS SHAUN Administration Warfarin Sodium 7.5 mg 08/06/19 17:00 08/07/19 17:34 Coumadin PO 7.5 mg 1700 SHAUN Administration - Exam General Appearance: NAD Neck: supple, no JVD Heart: RRR, no gallops Respiratory: no wheezes, no ronchi Gastrointestinal: soft, non-tender, normal bowel sounds, no guarding, no rigidity Neurological: no new deficit Psychiatric: normal affect, A&O x 3 Hosp A/P - Plan DVT proph w/SCDs 1. Syncope prob due to PAT vs hypotension 2. Hypotension. improved 3. Hyponatremia. 4. Anemia probably due to nutritional deficiency. 5. Mechanical aortic valve (1997) with subtherapeutic INR. 6. History of hypertension. 7. Dyslipidemia. 8. Hyponatremia, present on admission. 9. Recent knee surgery. 10. Chronic kidney disease stage 3. 11. Constipation. PLAN: Cont PO Cardizem INR still subtherapeutic - Cont Lovenox 1 mg/kg Cont Warfarin - dose increased Cont Miralax AM labs including PT/INR Cont other meds as above
--- NOTE | 2019-08-08 01:05 | CON ---
DATE OF CONSULTATION: 08/07/2019 REQUESTING PHYSICIAN: Omar Saavedra MD CONSULTING PHYSICIAN: Luciano Tompkins MD REASON FOR CONSULTATION: Recent re-admit for abdominal discomfort and failure of outpatient management for recent left total knee arthroplasty. BRIEF CLINICAL HISTORY: Mukesh is a 79-year-old male, who was admitted through the emergency room for question of a syncopal episode which resulted in the patient being brought to the emergency room and a cardiac workup was initiated. He had an indeterminate troponin, therefore the Medicine Team admitted the patient and consulted our services for recent total knee arthroplasty and continuity of care. PHYSICAL EXAMINATION: EXTREMITIES: Left knee is swollen as expected. He is neurovascularly intact. He has no strike through, no bleeding on the knee. He has been ambulating greater than 100 feet at a time. He is for the most part independent, but it is the syncope that brought him back in. IMPRESSION: 1. 79-year-old male, admitted for syncopal episode. 2. Recent total knee arthroplasty. PLAN: We will follow along with the Medicine Team, recommend physical therapy, and we will re-evaluate daily. Job ID: [id number]
[2019-08-08 04:50] LABS: Hemoglobin 9.4 g/dL (14.0-18.0); Platelet Count 546 thou/uL (130-400)
[2019-08-08 04:51] LABS: INR-International Normal Ratio 1.2; Prothrombin Time 15.3 sec (12.0-14.7)
[2019-08-08 05:08] LABS: Anion Gap 12 mmol/L (10-20); BUN (Urea Nitrogen) 25 mg/dL (8.4-25.7); Calc. Creatinine Clearance 0 mL/min (70-130); Calcium 8.5 mg/dL (7.8-10.44); Carbon Dioxide 24 mmol/L (23-31); Chloride 101 mmol/L (98-107); Estimated GFR-MDRD 85; Glucose 137 mg/dL (83-110); Potassium 4.3 mmol/L (3.5-5.1); Sodium 133 mmol/L (136-145)
[2019-08-08] MEDS: Acetaminophen 325 MG TAB PO PRN ×2 (05:49→22:06)
[2019-08-08] MEDS: MEROPENEM 1 GM/50 ML 1 GM in Premix Bag 1 BAG IVPB SCH ×2 (08:34→17:07)
[2019-08-08] MEDS: Dextrose 5 % And 0.9 % NaCl 1,000 ML IV SCH ×2 (09:21→17:16)
--- NOTE | 2019-08-08 10:50 | PRG ---
DATE OF SERVICE: 08/08/2019 SUBJECTIVE: Mr. Vivar had some abdominal pain yesterday with drop in blood pressure. Received normal saline [address] mL. CT of the abdomen and pelvis revealed some peripheral portal venous gas within the right and left hepatic lobe. Surgical consultation is pending. The patient is now resting comfortably. He had a lot of bowel movements last night. OBJECTIVE: VITAL SIGNS: His blood pressure 140/67, pulse 90. LUNGS: Clear. CARDIAC: Normal S1, normal S2. ABDOMEN: Soft, nontender. PERTINENT LABORATORY DATA: His INR is 1.2. He is n.p.o. this morning. He did not get the diltiazem today as I have stopped that. ASSESSMENT: 1. Atrial tachycardia, stable. 2. Postoperative status with his knee. 3. Mechanical aortic valve, on Lovenox with subtherapeutic INR. 4. Abdominal symptoms as outlined above. PLAN: 1. Dr. Anderson has been consulted. 2. Start beta-blockers tomorrow. Job ID: [id number]
[2019-08-08] MEDS: Senokot S 8.6-50 MG TAB PO SCH (10:51)
[2019-08-08] MEDS: Bisacodyl 10 MG SUPP PR SCH (10:51)
[2019-08-08] MEDS: Aspirin 81 mg Enteric Coated Tablet PO SCH (10:52)
--- NOTE | 2019-08-08 12:31 | PRG ---
DATE OF SERVICE: 08/08/2019 SUBJECTIVE: Mukesh is a 79-year-old male, who is now hospital day 7 for his readmission after a total knee arthroplasty last week. The abdominal pain was increasing yesterday. CT examination was performed. He had significant complications with constipation and possibly impaction. However, last night he had bowel movements, pressure normalized, and pain also subsided after his bowel movements. He is still subtherapeutic on his INR and Dr. Laird is working on this and I believe Dr. Anderson has evaluated him from a general surgical standpoint and recommended no intervention at this time surgically. We are continuing to observe. OBJECTIVE: VITAL SIGNS: Temperature 98.6, pulse 91, respiratory rate 23, O2 saturation 94% on room air, blood pressure is 138/66. GENERAL: He is alert, responsive, appropriate, and conversive with examiner. ABDOMEN: His abdominal exam is benign. He is nontender. EXTREMITIES: His knee exam demonstrates him to have fullness as expected. Incision is clean. There is no strike-through, no erythema. He is neurovascularly intact in left lower extremity. Hemarthrosis as expected, but appears clinically within normal limits. IMPRESSION: 1. Status post left total knee arthroplasty, at 2 weeks. 2. Subtherapeutic INR. 3. Ileus, resolved with constipation, resolved. PLAN: We will continue to observe. I do, however, recommend an inpatient rehabilitation consult for transfer after acute care stay. He has already failed outpatient management once and it would be a pretty good idea for him to be observed in a step-down unit prior to discharge home. Job ID: [id number]
--- NOTE | 2019-08-08 13:14 | PDOC.EP ---
- Subjective Date: 08/08/19 Time: 08:00 Interval History: denies heart racing, palpitations, chest pain, dizziness, passing out, and/or shortness of breath + abdominal distention and discomfort, knee pain following a recent total knee replacement - Objective Allergies/Adverse Reactions: Allergies Allergy/AdvReac Type Severity Reaction Status Date / Time No Known Drug Allergies Allergy Verified 07/29/19 14:47 Current Medications Acetaminophen (Tylenol) 650 mg PO Q4H PRN PRN Reason: Headache/Fever/Mild Pain (1-3) Last Admin: 08/08/19 05:49 Dose: 650 mg Acetaminophen (Tylenol) 650 mg [place] Q4H PRN PRN Reason: Headache/Fever/Mild Pain (1-3) Hydrocodone Bitart/Acetaminophen ([place] 10/325) 1 tab PO Q8HR PRN PRN Reason: Moderate Pain (4-6) Last Admin: 08/07/19 03:51 Dose: 1 tab Hydrocodone Bitart/Acetaminophen ([place] 10/325) 2 tab PO Q6H PRN PRN Reason: Severe Pain (7-10) Last Admin: 08/06/19 15:55 Dose: 2 tab Aspirin (Ecotrin) 81 mg PO DAILY [facility] Last Admin: 08/08/19 10:52 Dose: Not Given Bisacodyl (Dulcolax) 10 mg AL DAILY [facility] Last Admin: 08/08/19 10:51 Dose: Not Given Enoxaparin Sodium (Lovenox) 80 mg SC 0900,2100 [facility] Last Admin: 08/07/19 21:24 Dose: 80 mg Meropenem 1 gm/ Device 50 mls @ 100 mls/hr IVPB Q8H [facility] Last Admin: 08/08/19 08:34 Dose: 50 mls Dextrose/Sodium Chloride (D5 0.9% Ns) 1,000 mls @ 125 mls/hr IV .Q8H [facility] Last Admin: 08/08/19 09:21 Dose: 1,000 mls Magnesium Citrate (Citrate Of Magnesia 300 Ml Bot) 300 ml PO DAILY PRN PRN Reason: Constipation Miscellaneous Medication (Pharmacy To Dose) 1 each PO .W[facility]FARIN [facility] Ondansetron HCl (Zofran Odt) 4 mg PO Q6H PRN PRN Reason: Nausea/Vomiting Ondansetron HCl (Zofran) 4 mg IVP Q6H PRN PRN Reason: Nausea/Vomiting Last Admin: 08/08/19 09:43 Dose: 4 mg Polyethylene Glycol (Miralax) 17 gm PO HS [facility] Last Admin: 08/07/19 21:24 Dose: Not Given Senna/Docusate Sodium (Senokot S) 2 tab PO BID [facility] Last Admin: 08/08/19 10:51 Dose: Not Given Simvastatin (Zocor) 10 mg PO [facility] Last Admin: 08/07/19 21:24 Dose: 10 mg Sodium Chloride (Flush - Normal Saline) 10 ml IVF Q12HR [facility] Last Admin: 08/08/19 10:51 Dose: Not Given Sodium Chloride (Flush - Normal Saline) 10 ml IVF PRN PRN PRN Reason: Saline Flush Warfarin Sodium (Coumadin) 10 mg PO 1700 [facility] Vital Signs & Weight: Vital Signs Temp Pulse Resp BP BP Pulse Ox 08/08/19 11:02 98.6 F 91 23 H 138/66 94 L 08/08/19 10:52 90 08/08/19 07:58 99.0 F 90 17 140/67 96 08/08/19 04:39 98.2 F 83 14 139/65 95 Weight 177 lb 13.409 oz I/O: I/O 08/07/19 08/08/19 08/09/19 06:59 06:59 06:59 Intake Total 1440 600 50 Output Total 2225 300 Balance -785 300 50 - Physical Exam General: alert & oriented x3, appears well, no apparent distress, speech clear, affect appropriate HEENT: mucus membranes moist, normocephaly Neck: supple neck, midline trachea, no JVD/HJR, no masses, no bruit, no lymphadenopathy, no thromegaly Cardiology: regular rate and rhythm, no murmur, regular rate, regular rhythm, PMI nondisplaced Lungs: clear to auscultation, no wheeze, rales, rhonchi Neurology: cranial nerve 2-12 intact, grossly intact, no lateralizing findings Abdomen: tender, firm, distended - Labs Result Diagrams: 08/08/19 04:12 08/08/19 04:12 - EKG Interpretation EKG Method: Telemetry EKG shows: Sinus rhythm - Assessment/Plan Assessment/Plan: 1. Near syncope -orthostatic vs cagal 2. PAT runs 3. NSVT 4. PVCs 5. Right bundle branch block 6. Possible fecal impaction with questionable tear of the injury of the rectal intima - GI consult recommended by rad report, will defer to medicine team. Initiated beta slava therapy for treatment of his atrial and vetricular ectopy. Rare PVCs seen on tele. Would recommend a 30 day event monitor upon DC.
--- NOTE | 2019-08-08 15:37 | PDOC.HOSPP ---
- Subjective Encounter Date: 08/08/19 Encounter Time: 08:30 Subjective: Patient seen and examined for Gen weakness/Syncope. Had several BMs last night. Abd pain improving. No N/V. No other complaints. No overnight events - Objective Vital Signs & Weight: Vital Signs (12 hours) Temp Pulse Resp BP BP Pulse Ox 08/08/19 11:02 98.6 F 91 23 H 138/66 94 L 08/08/19 10:52 90 08/08/19 07:58 99.0 F 90 17 140/67 96 08/08/19 04:39 98.2 F 83 14 139/65 95 Weight Weight 177 lb 13.409 oz I&O: 08/07/19 08/08/19 08/09/19 06:59 06:59 06:59 Intake Total 1440 600 50 Output Total 2225 300 Balance -785 300 50 Result Diagrams: 08/08/19 04:12 08/08/19 04:12 Radiology Reviewed by me: Yes (CT abd - reviewed) EKG Reviewed by me: Yes (Tele SR) Hospitalist ROS - Review of Systems Respiratory: denies: cough, dry, shortness of breath, hemoptysis, SOB with excertion, pleuritic pain, sputum, wheezing, other Cardiovascular: denies: chest pain, palpitations, orthopnea, paroxysmal noc. dyspnea, edema, light headedness, other - Medication Medications: Active Medications Generic Name Dose Route Start Last Admin Trade Name Freq PRN Reason Stop Dose Admin Acetaminophen 650 mg 08/03/19 21:16 08/08/19 05:49 Tylenol PO 650 mg Q4H PRN Administration Headache/Fever/Mild Pain (1-3) Hydrocodone Bitart/Acetaminophen 1 tab 08/03/19 22:25 08/07/19 03:51 [place] 10/325 PO 1 tab Q8HR PRN Administration Moderate Pain (4-6) Hydrocodone Bitart/Acetaminophen 2 tab 08/04/19 12:42 08/06/19 15:55 [place] 10/325 PO 2 tab Q6H PRN Administration Severe Pain (7-10) Aspirin 81 mg 08/04/19 09:00 08/08/19 10:52 Ecotrin PO Not Given DAILY SHAUN Bisacodyl 10 mg 08/08/19 09:00 08/08/19 10:51 Dulcolax [place] Not Given DAILY SHAUN Meropenem 1 gm/ Device 50 mls @ 100 mls/hr 08/08/19 09:00 08/08/19 08:34 IVPB 50 mls Q8H SHAUN Administration Dextrose/Sodium Chloride 1,000 mls @ 125 mls/hr 08/08/19 08:45 08/08/19 09:21 D5 0.9% Ns IV 1,000 mls .Q8H SHAUN Administration Ondansetron HCl 4 mg 08/03/19 21:16 08/08/19 09:43 Zofran IVP 4 mg Q6H PRN Administration Nausea/Vomiting Polyethylene Glycol 17 gm 08/05/19 21:00 08/07/19 21:24 Miralax PO Not Given HS SHAUN Senna/Docusate Sodium 2 tab 08/07/19 21:00 08/08/19 10:51 Senokot S PO Not Given BID SHAUN Simvastatin 10 mg 08/04/19 21:00 08/07/19 21:24 Zocor PO 10 mg HS SHAUN Administration Sodium Chloride 10 ml 08/08/19 09:00 08/08/19 10:51 Flush - Normal Saline IVF Not Given Q12HR SHAUN - Exam General Appearance: NAD Neck: supple, no JVD Heart: RRR, no gallops Respiratory: no rales Gastrointestinal: soft, normal bowel sounds, no guarding, no rigidity Hosp A/P - Plan DVT proph w/lovenox, DVT proph w/SCDs 1. Syncope prob due to PAT vs hypotension 2. Hypotension. improved 3. Hyponatremia. 4. Anemia probably due to nutritional deficiency. 5. Mechanical aortic valve (1997) with subtherapeutic INR. 6. Constipation with portal venous gas - prob due to rectal tear 7. Dyslipidemia. 8. Hyponatremia, present on admission. 9. Recent knee surgery. 10. Chronic kidney disease stage 3. 11. History of hypertension. PLAN: Consult Gen surg NPO Cont IVF Lovenox on hold for possible surgical intervention Cardizem dced - Start betablockers in AM INR subtherapeutic - Cont Lovenox 1 mg/kg Cont Warfarin - dose increased AM labs Cont other meds as above
--- NOTE | 2019-08-08 16:08 | CON ---
DATE OF CONSULTATION: 08/08/2019 SURGEON: Dr. Anedrson. HISTORY OF PRESENT ILLNESS: The patient is a 79-year-old male with recent history of a total knee replacement, who presented to the emergency department via EMS after a near syncopal episode with associated hypotension. He was subsequently admitted to the Medicine Service and worked up. We were consulted today by the Medicine Team for concern for suspected bowel ischemia. The patient with GI symptoms, reported that he was having mild abdominal pain with no signs of peritonitis. He has had about 9 to 10 bowel movements and is also passing gas. He is n.p.o. at this time. The patient received a CT scan of the abdomen and pelvis, which demonstrated portal venous gas and concern for ischemic bowel. Upon our evaluation, the patient had very minimal GI symptoms. He was hemodynamically stable and making good urine. REVIEW OF SYSTEMS: All additional 10-point review of systems negative, except as indicated above. PAST MEDICAL HISTORY: Hypertension, hyperlipidemia, aortic mechanical valve replacement. PAST SURGICAL HISTORY: Total knee replacement and valve replacement. SOCIAL HISTORY: The patient denies tobacco, drug, or alcohol use. He lives with his family. MEDICATIONS: Include, 1. Calcium carbonate. 2. [place]. 3. [place]. 4. Amlodipine. 5. Lisinopril. 6. Aspirin. 7. Lovastatin. 8. Warfarin. ALLERGIES: NO KNOWN DRUG ALLERGIES. PHYSICAL EXAMINATION: VITAL SIGNS: Temperature 99.0, pulse 90, respirations 17, oxygen saturation 96% on room air, blood pressure 170/67. GENERAL: Well appearing elderly male, lying in bed with no signs of acute distress. PULMONARY: Equal chest rise and fall. Clear breath sounds bilaterally. No signs of acute respiratory distress. CARDIAC: Regular rate and rhythm. GASTROINTESTINAL: Soft, very mildly tender to palpation throughout and nontender. No signs of peritonitis. EXTREMITIES: 2+ pulses in all extremities. Gross motor and sensation intact. No significant swelling noted. NEUROLOGIC: GCS is 15. LABORATORY FINDINGS: Hemoglobin 9.4, hematocrit 28.4, platelets 546. Sodium 133, potassium 4.3, chloride 101, bicarb 24, BUN 25, creatinine 0.87, glucose 137, lactic acid 1.0, calcium 8.5. DIAGNOSTIC FINDINGS: CT scan of the abdomen and pelvis completed yesterday demonstrates interval development of peripheral portal nervous gas within the right and left hepatic lobe, most likely site of origin is a prominent amount of retained stool within the rectum vault where there possibly is an intimal injury to the anterior aspect of the rectal vault from the retained stool. Small amount of gas is suspected within the anterior rectal wall. GI consultation is recommended. Bibasilar atelectasis, hepatic and renal cysts, prostate enlargement, moderate gallbladder distention. ASSESSMENT: Evaluation for possible bowel ischemia with associated portal venous gas, etiology unknown. RECOMMENDATIONS: There is no clinical evidence for ischemic bowel. There is portal venous gas present, but etiology is unknown. The patient is started on a clear liquid diet this morning. Primary team can advance as tolerated. He also reports having between 9 and 10 bowel movements. There is no concern for any active surgical intervention needs. GI consult per the judgment of the primary team. This patient was seen and evaluated by Dr. Anderson and myself this morning during rounds. Job ID: [id number]
[2019-08-08] MEDS ORDERED: Warfarin Sodium 10 MG TAB PO SCH (17:00)
[2019-08-08] MEDS: Docusate 100 MG CAP PO SCH (20:25)
[2019-08-08] MEDS: Simvastatin 5 MG TAB PO SCH (20:26)
[2019-08-08] MEDS: Enoxaparin Sodium 80 MG/0.8 ML SYRINGE SC SCH (20:26)
[2019-08-09] MEDS: Dextrose 5 % And 0.9 % NaCl 1,000 ML IV SCH ×4 (00:33→21:16)
[2019-08-09] MEDS: MEROPENEM 1 GM/50 ML 1 GM in Premix Bag 1 BAG IVPB SCH ×3 (00:34→16:42)
[2019-08-09 04:37] LABS: #Eosinphils 0.1 thou/uL (0.0-0.7); #Lymphocytes 1.2 thou/uL (1.20-3.40); #Monocytes 1.3 thou/uL (0.11-0.59); #Neutrophils 12.1 thou/uL (1.40-6.50); %Basophils 0.3 % (0.0-1.0); %Eosinophils 0.5 % (0.0-10.0); %Lymphocytes 7.9 % (21.0-51.0); %Monocytes 8.8 % (0.0-10.0); %Neutrophils 82.5 % (42.0-75.0); Hemoglobin 8.5 g/dL (14.0-18.0); Mean Corpuscular HGB CONC 33.5 g/dL (32.0-36.0); Mean Corpuscular Hemoglobin 30.9 pg (27.0-31.0); Mean Corpuscular Volume 92.3 fL (78.0-98.0); Mean Platelet Volume 6.1 fL (7.4-10.4); Platelet Count 544 thou/uL (130-400); RBC Distribution Width 13.2 % (11.5-14.5); Red Blood Cell (RBC) Count 2.76 mill/uL (4.70-6.10); White Blood Cell (WBC) Count 14.6 thou/uL (4.8-10.8)
[2019-08-09 04:42] LABS: INR-International Normal Ratio 1.5; Prothrombin Time 18.5 sec (12.0-14.7)
[2019-08-09 05:27] LABS: ALT (SGPT) 18 U/L (8-55); AST (SGOT) 19 U/L (5-34); Albumin 2.9 g/dL (3.4-4.8); Alkaline Phosphatase 72 U/L (40-110); Anion Gap 8 mmol/L (10-20); BUN (Urea Nitrogen) 16 mg/dL (8.4-25.7); Bilirubin, Total 0.6 mg/dL (0.2-1.2); Calc. Creatinine Clearance 86 mL/min (70-130); Calcium 7.8 mg/dL (7.8-10.44); Carbon Dioxide 24 mmol/L (23-31); Chloride 106 mmol/L (98-107); Estimated GFR-MDRD Greater than 90; Glucose 133 mg/dL (83-110); Magnesium 2.2 mg/dL (1.6-2.6); Potassium 3.9 mmol/L (3.5-5.1); Protein, Total 5.9 g/dL (5.8-8.1); Sodium 134 mmol/L (136-145)
[2019-08-09] MEDS: Aspirin 81 mg Enteric Coated Tablet PO SCH (09:01)
[2019-08-09] MEDS: Bisacodyl 10 MG SUPP PR SCH (09:03)
[2019-08-09] MEDS: Docusate 100 MG CAP PO SCH ×2 (09:04→21:08)
[2019-08-09] MEDS: Enoxaparin Sodium 80 MG/0.8 ML SYRINGE SC SCH (09:09)
[2019-08-09] MEDS: Acetaminophen 325 MG TAB PO PRN ×2 (09:09→16:55)
[2019-08-09] MEDS ORDERED: Heparin 10,000 UNITS/ 10 ML VIAL SLOW IVP SCH (09:45)
--- NOTE | 2019-08-09 10:28 | PDOC.HOSPP ---
- Subjective Encounter Date: 08/09/19 Encounter Time: 09:30 Subjective: Patient seen and examined for Syncope. Still has lower abd pain - moderate. Mild nausea. Feels weak. Had some dark BM. No fever. No new complaints. No overnight events - Objective Vital Signs & Weight: Vital Signs (12 hours) Temp Pulse Resp BP Pulse Ox 08/09/19 08:00 98.3 F 79 18 142/70 H 95 08/09/19 03:31 99.0 F 82 20 136/65 95 Weight Weight 179 lb 6.4 oz I&O: 08/08/19 08/09/19 08/10/19 06:59 06:59 06:59 Intake Total 600 4305 Output Total 300 1785 Balance 300 2520 Result Diagrams: 08/09/19 04:16 08/09/19 04:16 EKG Reviewed by me: Yes (Tele SR) Hospitalist ROS - Review of Systems Respiratory: denies: cough, dry, shortness of breath, hemoptysis, SOB with excertion, pleuritic pain, sputum, wheezing, other Cardiovascular: denies: chest pain, palpitations, orthopnea, paroxysmal noc. dyspnea, edema, light headedness, other Gastrointestinal: denies: nausea, vomiting, abdominal pain, diarrhea, constipation, melena, hematochezia, other - Medication Medications: Active Medications Generic Name Dose Route Start Last Admin Trade Name Freq PRN Reason Stop Dose Admin Acetaminophen 650 mg 08/03/19 21:16 08/09/19 09:09 Tylenol PO 650 mg Q4H PRN Administration Headache/Fever/Mild Pain (1-3) Hydrocodone Bitart/Acetaminophen 1 tab 08/03/19 22:25 08/07/19 03:51 [place] 10/325 PO 1 tab Q8HR PRN Administration Moderate Pain (4-6) Hydrocodone Bitart/Acetaminophen 2 tab 08/04/19 12:42 08/06/19 15:55 [place] 10/325 PO 2 tab Q6H PRN Administration Severe Pain (7-10) Aspirin 81 mg 08/04/19 09:00 08/09/19 09:01 Ecotrin PO 81 mg DAILY SHAUN Administration Bisacodyl 10 mg 08/08/19 09:00 08/09/19 09:03 Dulcolax [place] Not Given DAILY SHAUN Docusate Sodium 100 mg 08/08/19 21:00 08/09/19 09:04 Colace PO Not Given BID SHAUN Meropenem 1 gm/ Device 50 mls @ 100 mls/hr 08/08/19 09:00 08/09/19 09:09 IVPB 50 mls Q8H SHAUN Administration Ondansetron HCl 4 mg 08/03/19 21:16 08/08/19 09:43 Zofran IVP 4 mg Q6H PRN Administration Nausea/Vomiting Simvastatin 10 mg 08/04/19 21:00 08/08/19 20:26 Zocor PO 10 mg HS SHAUN Administration Sodium Chloride 10 ml 08/08/19 09:00 08/09/19 09:03 Flush - Normal Saline IVF Not Given Q12HR SHAUN - Exam General Appearance: ill appearing Neck: no JVD Heart: RRR, no gallops Respiratory: no wheezes, no rales Gastrointestinal: non-tender, non-distended, normal bowel sounds Extremities: no cyanosis, no clubbing Neurological: no new deficit Hosp A/P - Plan DVT proph w/SCDs 1. Syncope prob due to PAT vs hypotension 2. Abd pain/Sepsis due to rectal tear/portal venous gas 3. Hyponatremia. 4. Anemia probably due to nutritional deficiency. 5. [facility] aortic valve (1997) with subtherapeutic INR. 6. Constipation with portal venous gas 7. Dyslipidemia. 8. Hyponatremia, present on admission. 9. Recent knee surgery. 10. Chronic kidney disease stage 3. 11. History of hypertension. PLAN: Case discussed with Gen surg Will change to NPO Reduce IVF Cont Meropenem DC Lovenox/Warfarin Start Heparin drip - no bolus Betablockers started AM labs Cont other meds as above
[2019-08-09 11:15] LABS: Hemoglobin 8.6 g/dL (14.0-18.0); Platelet Count 583 thou/uL (130-400)
--- NOTE | 2019-08-09 11:30 | PDOC.EP ---
- Subjective Date: 08/09/19 Time: 11:29 Interval History: P is placed NPO for severe bowel impaction. Abdomen is slightly better. - Review of Systems Constitutional: denies: chills, fever, malaise, sweats, weakness, other Respiratory: denies: cough, dry, hemoptysis, pleuritic pain, shortness of breath , SOB with excertion, sputum, wheezing, other Cardiology: denies: chest pain, edema, heart racing, light headedness, paroxysmal noc. dyspnea, orthopnea, palpitations, passing out, pleuritic pain, pressure, swelling, other Gastrointestinal: reports: abdominal pain (improving), constipation. denies: nausea, vomitting Musculoskeletal: denies: unstable gait, leg pain Neurological: denies: headache - Objective Allergies/Adverse Reactions: Allergies Allergy/AdvReac Type Severity Reaction Status Date / Time No Known Drug Allergies Allergy Verified 07/29/19 14:47 Current Medications Acetaminophen (Tylenol) 650 mg PO Q4H PRN PRN Reason: Headache/Fever/Mild Pain (1-3) Last Admin: 08/09/19 09:09 Dose: 650 mg Acetaminophen (Tylenol) 650 mg [place] Q4H PRN PRN Reason: Headache/Fever/Mild Pain (1-3) Hydrocodone Bitart/Acetaminophen ([place] 10/325) 1 tab PO Q8HR PRN PRN Reason: Moderate Pain (4-6) Last Admin: 08/07/19 03:51 Dose: 1 tab Hydrocodone Bitart/Acetaminophen ([place] 10/325) 2 tab PO Q6H PRN PRN Reason: Severe Pain (7-10) Last Admin: 08/06/19 15:55 Dose: 2 tab Aspirin (Ecotrin) 81 mg PO DAILY [facility] Last Admin: 08/09/19 09:01 Dose: 81 mg Bisacodyl (Dulcolax) 10 mg [place] DAILY [facility] Last Admin: 08/09/19 09:03 Dose: Not Given Docusate Sodium (Colace) 100 mg PO BID [facility] Last Admin: 08/09/19 09:04 Dose: Not Given Meropenem 1 gm/ Device 50 mls @ 100 mls/hr IVPB Q8H [facility] Last Admin: 08/09/19 09:09 Dose: 50 mls Heparin Sodium/Dextrose (Heparin 25,000 Units/D5w) 500 mls @ 0 mls/hr IVPB INF SHAUN; Protocol Dextrose/Sodium Chloride (D5 0.9% Ns) 1,000 mls @ 75 mls/hr IV .[id number] SHAUN Metoprolol Succinate (Toprol Xl) 50 mg PO DAILY [facility] Miscellaneous Medication (Pharmacy To Dose) 1 each PO .WARFARIN SHAUN Ondansetron HCl (Zofran Odt) 4 mg PO Q6H PRN PRN Reason: Nausea/Vomiting Ondansetron HCl (Zofran) 4 mg IVP Q6H PRN PRN Reason: Nausea/Vomiting Last Admin: 08/08/19 09:43 Dose: 4 mg Simvastatin (Zocor) 10 mg PO HS SHAUN Last Admin: 08/08/19 20:26 Dose: 10 mg Sodium Chloride (Flush - Normal Saline) 10 ml IVF Q12HR SHAUN Last Admin: 08/09/19 09:03 Dose: Not Given Sodium Chloride (Flush - Normal Saline) 10 ml IVF PRN PRN PRN Reason: Saline Flush Vital Signs & Weight: Vital Signs Temp Pulse Resp BP Pulse Ox 08/09/19 08:00 98.3 F 79 18 142/70 H 95 08/09/19 03:31 99.0 F 82 20 136/65 95 Weight 179 lb 6.4 oz I/O: I/O 08/08/19 08/09/19 08/10/19 06:59 06:59 06:59 Intake Total 600 4305 Output Total 300 1785 Balance 300 2520 - Physical Exam General: alert & oriented x3, appears well, no apparent distress Neck: supple neck, no JVD/HJR Cardiology: regular rate and rhythm, no murmur, PMI nondisplaced Lungs: clear to auscultation, normal breath sounds, no rales, no rhonchi Neurology: grossly intact Abdomen: active bowel sounds, soft Extremities: negative: + edema B - Labs Result Diagrams: 08/09/19 10:55 08/09/19 04:16 - EKG Interpretation Status: image reviewed by me EKG Method: Telemetry (SR with <10 sec PAT runs.) - Assessment/Plan Assessment/Plan: 1. Near syncope -orthostatic vs vagal 2. PAT runs 3. NSVT 4. PVCs 5. Right bundle branch block 6. Possible fecal impaction with questionable tear of the injury of the rectal intima - GI consult recommended by rad report, will defer to medicine team. - Pt placed NPO. Initiated beta slava therapy for treatment of his atrial and vetricular ectopy. Rare PVCs seen on tele. Would recommend a 30 day event monitor upon DC. Would sign out. Happy to see him back in office in 4-6weeks. Thank You!
--- NOTE | 2019-08-09 11:36 | PRG ---
DATE OF SERVICE: 08/09/2019 SUBJECTIVE: Mr. Vivar is feeling better. He is beginning to have bowel movements, still having intermittent supraventricular tachycardia. No chest pain. OBJECTIVE: VITAL SIGNS: Blood pressure 142/70, pulse 80. LUNGS: Clear. CARDIAC: Normal S1. Normal S2. ABDOMEN: Soft and nontender. ASSESSMENT: 1. Status post knee surgery. 2. Paroxysmal atrial tachycardia. 3. Near syncopal episode likely related to orthostatic hypotension. 4. Abdominal pain, being evaluated by Surgery. PLAN: 1. Change to long-acting beta-blockers. 2. Coumadin and Lovenox on hold for now. We will follow with you. Job ID: [id number]
[2019-08-09] MEDS: Heparin 25,000 units/D5W 500 ML IVPB SCH (11:37)
--- NOTE | 2019-08-09 15:34 | PRG ---
DATE OF SERVICE: SUBJECTIVE: Mukesh is a 79-year-old male, who was admitted by the Medicine Team 5 days ago for syncopal episodes. He has had some complications since then to include severe constipation and some portal hypertension, which was resolved. He is doing a little better now as GI evaluated has the patient as well as Dr. Anderson. At this point, no further interventions are recommended. Note, Dr. Laird is working on his INR, which has been resistant. OBJECTIVE: His incision in his knee is clean. No erythema. He has appropriately swollen as expected for total knee, but no strike through is noted and he is neurovascularly intact. IMPRESSION: 1. Status post left total knee arthroplasty, 2 weeks. 2. Subtherapeutic INR. 3. Ileus, resolved. PLAN: Continue observation. Continue to follow the patient. Recommend a step-down unit prior to discharge to home. Job ID: [id number]
[2019-08-09 16:18] LABS: PTT 207.2 sec (22.9-36.1)
--- NOTE | 2019-08-09 17:08 | PRG ---
DATE OF SERVICE: 08/09/2019 SUBJECTIVE: The patient was seen this morning, sitting up in bed. Reported abdominal pain 2/10 that comes and goes. Has been tolerating his clear liquid diet. Had one bowel movement overnight, reported it was very dark, almost black. He has been hemodynamically stable up trending white count. Kidney function normal. Not tachycardic. OBJECTIVE: VITAL SIGNS: Temperature 98.7, pulse 79, respirations 18, oxygen saturation 95% on room air, and blood pressure 142/70. GENERAL: Well-appearing elderly male, sitting up in bed with no signs of acute distress. PULMONARY: Equal chest rise and fall. Clear breath sounds bilaterally. No signs of acute respiratory distress. CARDIAC: Regular rate and rhythm. GI: Abdomen is soft, mildly tender to palpation diffusely and mildly distended. EXTREMITIES: 2+ pulse in all extremities. Gross motor and sensations are intact. No significant swelling noted. NEUROLOGIC: GCS is 15. LABORATORY FINDINGS: White count 14.6, hemoglobin 8.5, hematocrit 25.5, and platelets 577. Sodium 134, potassium 3.4, chloride 106, bicarb 24, BUN 16, creatinine 0.28, glucose 133, and magnesium 2.2. DIAGNOSTIC FINDINGS: There are no new diagnostic findings to report. ASSESSMENT: Mild abdominal pain concerning originally for ischemic bowel and portal venous gas, slightly worse today. PLAN: The patient to be n.p.o. and monitor overnight. Repeat blood work in the morning. Slight concern of increasing white count and dark stools. We will follow up the labs later tomorrow. Dr. Anderson has requested to stop the patient's anticoagulation for now and place him on a heparin drip. In case he would need surgery, we can stop the drip and create a window for opportunity for surgery. We have discussed this with Dr. Saavedra who understands and is agreement. Surgery will re-evaluate the patient in the morning and consider diet advancement if he has improvement. Dr. Anderson has discussed this patient also with Dr. Foster as Dr. Anderson will not be here over the weekend. This patient was seen and evaluated by Dr. Anderson and by myself this morning during rounds. Job ID: [id number] [facility]
[2019-08-09 18:40] LABS: PTT 124.3 sec (22.9-36.1)
[2019-08-09] MEDS: Simvastatin 5 MG TAB PO SCH (21:05)
[2019-08-10] MEDS: Acetaminophen 325 MG TAB PO PRN ×2 (00:31→20:19)
[2019-08-10] MEDS: MEROPENEM 1 GM/50 ML 1 GM in Premix Bag 1 BAG IVPB SCH ×3 (00:32→17:54)
[2019-08-10 01:04] LABS: PTT 178.4 sec (22.9-36.1)
--- NOTE | 2019-08-10 03:54 | PRG ---
DATE OF SERVICE: 08/09/2019 SUBJECTIVE: The patient was seen during evening rounds on the telemetry floor, resting comfortably. The patient denies any abdominal pain at this time. The patient has been n.p.o. most of the day. The patient did have some dark stool today, but previously has had several episodes of liquid diarrhea. The patient's abdominal CT scan on 08/06 showed retained stool within the rectal vault. Since the patient has had mainly only liquid stools, a digital rectal exam was done and the rectal vault was empty. There was an external hemorrhoid at the 9 o'clock position. OBJECTIVE: VITAL SIGNS: Stable, afebrile. GENERAL: Well-appearing elderly male, resting comfortably in no acute distress. PULMONARY: Equal chest rise and fall. RESPIRATIONS: Even and nonlabored. CARDIAC: Regular rate. Regular rhythm. GI: Abdomen is soft, nontender, and nondistended. RECTAL: No stool in the rectal vault. External hemorrhoid noted. NEUROLOGIC: GCS 15. ASSESSMENT: Concern for ischemic bowel and portal venous gas; abdominal pain, improving. PLAN: Continue n.p.o. status overnight. Lab work in the morning. Dr. Foster will evaluate the patient in the morning. Plan was discussed with Dr. Foster. Plan was discussed with the patient. Job ID: [id number]
[2019-08-10 04:31] LABS: INR-International Normal Ratio 1.5; Prothrombin Time 17.9 sec (12.0-14.7)
[2019-08-10 04:32] LABS: PTT 59.5 sec (22.9-36.1)
[2019-08-10 04:38] LABS: ALT (SGPT) 29 U/L (8-55); AST (SGOT) 28 U/L (5-34); Alkaline Phosphatase 78 U/L (40-110); Anion Gap 11 mmol/L (10-20); BUN (Urea Nitrogen) 12 mg/dL (8.4-25.7); Bilirubin, Total 0.7 mg/dL (0.2-1.2); Calc. Creatinine Clearance 94 mL/min (70-130); Carbon Dioxide 22 mmol/L (23-31); Chloride 105 mmol/L (98-107); Estimated GFR-MDRD Greater than 90; Globulin 3.2 g/dL (2.4-3.5); Glucose 112 mg/dL (83-110); Phosphorus 2.1 mg/dL (2.3-4.7); Potassium 3.5 mmol/L (3.5-5.1); Protein, Total 6.2 g/dL (5.8-8.1); Sodium 134 mmol/L (136-145)
[2019-08-10 05:59] LABS: Band 7 % (5-11); Eosinophils 1 % (0-10); Hemoglobin 8.8 g/dL (14.0-18.0); Lymphocytes 13 % (21-51); MDiff Complete? YES; Mean Corpuscular HGB CONC 32.9 g/dL (32.0-36.0); Mean Corpuscular Hemoglobin 30.2 pg (27.0-31.0); Mean Corpuscular Volume 91.8 fL (78.0-98.0); Mean Platelet Volume 6.3 fL (7.4-10.4); Monocytes 6 % (0-10); Neutrophil 73 % (42-75); Platelet Count 657 thou/uL (130-400); Platelet Morphology Comment Appears Increased; Polychromasia SLIGHT = 2-3 cells (100X) (0-2/hpf); Red Blood Cell (RBC) Count 2.92 mill/uL (4.70-6.10); White Blood Cell (WBC) Count 12.4 thou/uL (4.8-10.8)
[2019-08-10] MEDS: Aspirin 81 mg Enteric Coated Tablet PO SCH (08:22)
[2019-08-10] MEDS: Bisacodyl 10 MG SUPP PR SCH (08:23)
[2019-08-10] MEDS: Docusate 100 MG CAP PO SCH ×2 (08:23→20:21)
[2019-08-10] MEDS ORDERED: Potassium Phosphate 15 MMOL in Sodium Chloride 0.9% 250 ML 250 ML IVPB SCH (09:15)
--- NOTE | 2019-08-10 10:44 | PDOC.HOSPP ---
- Subjective Encounter Date: 08/10/19 Encounter Time: 10:00 Subjective: Patient seen and examined for Gen weakness. Feeling slightly better. Didn't sleep well. No new complaints. No overnight events - Objective Vital Signs & Weight: Vital Signs (12 hours) Temp Pulse Pulse Resp BP BP BP 08/10/19 08:45 59 L 133/60 133/60 08/10/19 08:00 97.7 F 63 17 148/66 H 08/10/19 04:00 98.4 F 63 18 132/63 08/10/19 00:00 66 20 139/64 Pulse Ox 08/10/19 08:45 08/10/19 08:00 97 08/10/19 04:00 98 08/10/19 00:00 98 Weight Weight 178 lb 1.6 oz I&O: 08/09/19 08/10/19 08/11/19 06:59 06:59 06:59 Intake Total 4305 2227 Output Total 1785 2025 Balance 2520 202 Result Diagrams: 08/10/19 03:55 08/10/19 03:55 Additional Labs: Laboratory Tests 08/08/19 08/10/19 04:12 03:55 INR 1.2 Phosphorus 2.1 L EKG Reviewed by me: Yes (Tele SR) Hospitalist ROS - Review of Systems Respiratory: denies: cough, dry, shortness of breath, hemoptysis, SOB with excertion, pleuritic pain, sputum, wheezing, other Cardiovascular: denies: chest pain, palpitations, orthopnea, paroxysmal noc. dyspnea, edema, light headedness, other Gastrointestinal: denies: nausea, vomiting, abdominal pain, diarrhea, constipation, melena, hematochezia, other - Medication Medications: Active Medications Generic Name Dose Route Start Last Admin Trade Name Freq PRN Reason Stop Dose Admin Acetaminophen 650 mg 08/03/19 21:16 08/10/19 00:31 Tylenol PO 650 mg Q4H PRN Administration Headache/Fever/Mild Pain (1-3) Hydrocodone Bitart/Acetaminophen 1 tab 08/03/19 22:25 08/07/19 03:51 [place] 10/325 PO 1 tab Q8HR PRN Administration Moderate Pain (4-6) Hydrocodone Bitart/Acetaminophen 2 tab 08/04/19 12:42 08/06/19 15:55 [place] 10/325 PO 2 tab Q6H PRN Administration Severe Pain (7-10) Aspirin 81 mg 08/04/19 09:00 08/10/19 08:22 Ecotrin PO 81 mg DAILY SHAUN Administration Bisacodyl 10 mg 08/08/19 09:00 08/10/19 08:23 Dulcolax [place] Not Given DAILY SHAUN Docusate Sodium 100 mg 08/08/19 21:00 08/10/19 08:23 Colace PO Not Given BID SHAUN Meropenem 1 gm/ Device 50 mls @ 100 mls/hr 08/08/19 09:00 08/10/19 08:28 IVPB 50 mls Q8H SHAUN Administration Heparin Sodium/Dextrose 500 mls @ 0 mls/hr 08/09/19 09:45 08/09/19 11:37 Heparin 25,000 Units/D5w IVPB 500 mls INF SHAUN Administration Protocol Per Protocol Dextrose/Sodium Chloride 1,000 mls @ 75 mls/hr 08/09/19 09:41 08/09/19 21:16 D5 0.9% Ns IV 1,000 mls .[id number] SHAUN Administration Potassium Phosphate 15 mmol/ 255 mls @ 62.5 mls/hr 08/10/19 09:15 08/10/19 10 :35 Sodium Chloride IVPB 08/10/19 12:00 255 mls NOW SHAUN Administration Metoprolol Succinate 50 mg 08/09/19 09:00 08/10/19 08:22 Toprol Xl PO 50 mg DAILY SHAUN Administration Ondansetron HCl 4 mg 08/03/19 21:16 08/08/19 09:43 Zofran IVP 4 mg Q6H PRN Administration Nausea/Vomiting Simvastatin 10 mg 08/04/19 21:00 08/09/19 21:05 Zocor PO 10 mg HS SHAUN Administration Sodium Chloride 10 ml 08/08/19 09:00 08/10/19 08:23 Flush - Normal Saline IVF Not Given Q12HR SHAUN - Exam General Appearance: NAD Heart: RRR, no gallops Respiratory: no wheezes, no rales, no ronchi Gastrointestinal: soft, tender to palpation (in lower qudrant) Extremities: no cyanosis, no clubbing Psychiatric: normal affect, A&O x 3 Hosp A/P - Plan DVT proph w/heparin 1. Syncope prob due to PAT vs hypotension - no new episode 2. Abd pain/Sepsis due to rectal tear/portal venous gas 3. Hyponatremia/Hypophosphatemia 4. Anemia probably due to nutritional deficiency. 5. [facility] aortic valve (1997) 6. Constipation 7. Subtherapeutic INR. 8. Dyslipidemia. 9. Recent knee surgery. 10. CKD 3. 11. Hypertension. PLAN: Replace Phosphorus Cont NPO cont IVF with Meropenem Cont Heparin drip Cont Betablockers per Cardiology Add Melatonin PRN Cont other meds as above AM labs
--- NOTE | 2019-08-10 11:11 | PRG ---
DATE OF SERVICE: 08/10/2019 SUBJECTIVE: Mr. Vivar is awake and alert. His abdominal discomfort is improved. OBJECTIVE: VITAL SIGNS: Blood pressure 130/60, pulse 60, it is sinus. LUNGS: Clear. CARDIAC: Normal S1 and normal S2. ABDOMEN: Soft, nontender. EXTREMITIES: No edema. ASSESSMENT: 1. Status post knee surgery. 2. Paroxysmal supraventricular tachycardia, improved. 3. Mechanical aortic valve. INR 1.5. PLAN: 1. Resume diet if okay with Surgery. 2. Need to go back on the Coumadin. Job ID: [id number]
--- NOTE | 2019-08-10 13:02 | EKG ---
Test Reason : Blood Pressure : / mmHG Vent. Rate : 079 BPM Atrial Rate : 079 BPM P-R Int : 188 ms QRS Dur : 138 ms QT Int : 434 ms P-R-T Axes : 010 -42 -06 degrees QTc Int : 497 ms Normal sinus rhythm Left axis deviation Right bundle branch block Voltage criteria for left ventricular hypertrophy Cannot rule out Septal infarct , age undetermined Abnormal ECG Confirmed by JUAN ALBERTO VARGAS DO ([id number]), material expeditor ANGY WELLER ([id number]) on 08/10/2019 1:02:20 PM Referred By: Confirmed By:JUAN ALBERTO VARGAS DO
[2019-08-10] MEDS: Dextrose 5 % And 0.9 % NaCl 1,000 ML IV SCH (14:18)
[2019-08-10] MEDS: Heparin 25,000 units/D5W 500 ML IVPB SCH (14:18)
--- NOTE | 2019-08-10 16:16 | PRG ---
DATE OF SERVICE: 08/10/2019 SUBJECTIVE: The patient was seen this morning during rounds. He was also later seen this morning by Dr. Anderson. He reported he had persistently mild lower abdominopelvic pain that was not worse on palpation. There was no signs of peritonitis. Reports two bowel movements yesterday that were normal. He has been n.p.o. White count is improving with only 7 bands. OBJECTIVE: VITAL SIGNS: Temperature 97.7, pulse 63, respirations 17, oxygen saturation 97% on room air, and blood pressure 133/60. GENERAL: Well-appearing elderly male, sitting up in chair with no signs of acute distress. PULMONARY: Equal chest rise and fall. Clear breath sounds bilaterally. No signs of acute respiratory distress. CARDIAC: Regular rate and rhythm. GI: Abdomen soft, mildly tender to palpation in the bilateral lower quadrants and nondistended. No signs of peritonitis. EXTREMITIES: 2+ pulses in all extremities. Gross motor and sensation intact. No significant swelling noted. NEURO: GCS 15. LABORATORY FINDINGS: White count 12.7, hemoglobin 8.8, hematocrit 28.7, . Sodium 135, potassium 3.5, chloride 105, bicarb 22, BUN 12, creatinine 0.76, total bilirubin 0.7, AST 28, ALT 29, and alkaline phosphatase 78. DIAGNOSTIC FINDINGS: There are no new diagnostic findings to report. ASSESSMENT: Mild abdominal pain concerning originally for schematic bowel and portal venous gas, improving today. PLAN: Advance to clear liquid diet. Repeat blood work in the morning. Monitoring for tachycardia. Increased white count. Monitor stools. Continue heparin drip and continue to hold off on long-acting anticoagulation. We will re-evaluate the patient tomorrow and advance diet as necessary. Dr. Anderson has seen the patient today and has also discussed the case with Dr. Foster in case operative intervention is necessary over the weekend. This patient was seen and evaluated by Dr. Anderson and myself this morning during rounds. Job ID: [id number]
[2019-08-10] MEDS: Melatonin 3 MG TAB PO PRN (20:19)
[2019-08-10] MEDS: Simvastatin 5 MG TAB PO SCH (20:19)
[2019-08-11] MEDS: MEROPENEM 1 GM/50 ML 1 GM in Premix Bag 1 BAG IVPB SCH ×3 (01:39→17:32)
--- NOTE | 2019-08-11 02:18 | PRG ---
DATE OF SERVICE: 08/10/2019 SUBJECTIVE: The patient remains on the telemetry floor, awake, alert, in no distress. The patient reports that his abdominal pain is much better. The patient continues to have some mild suprapubic abdominal pain. The patient states that this pain is off and on and not constant. The patient is tolerating a clear liquid diet. The patient has not had a bowel movement today but did have bowel movement yesterday. The patient's white blood count has improved. OBJECTIVE: Abdomen is soft, nontender, nondistended. Mildly tender with palpation to lower quadrant. No signs of peritonitis. PLAN: Continue clear liquid diet. Repeat labs in the morning. Surgery will continue to follow the patient. Job ID: [id number]
[2019-08-11 04:33] LABS: INR-International Normal Ratio 1.6; Prothrombin Time 18.5 sec (12.0-14.7)
[2019-08-11 04:34] LABS: PTT 77.5 sec (22.9-36.1)
[2019-08-11 05:42] LABS: Eosinophils 2 % (0-10); Hemoglobin 8.9 g/dL (14.0-18.0); Lymphocytes 13 % (21-51); MDiff Complete? YES; Mean Corpuscular HGB CONC 34.3 g/dL (32.0-36.0); Mean Corpuscular Hemoglobin 31.2 pg (27.0-31.0); Mean Platelet Volume 6.1 fL (7.4-10.4); Monocytes 8 % (0-10); Neutrophil 77 % (42-75); Platelet Count 612 thou/uL (130-400); Platelet Morphology Comment Appears Increased; Polychromasia SLIGHT = 2-3 cells (100X) (0-2/hpf); RBC Distribution Width 13.2 % (11.5-14.5); Red Blood Cell (RBC) Count 2.84 mill/uL (4.70-6.10); White Blood Cell (WBC) Count 8.7 thou/uL (4.8-10.8)
[2019-08-11 06:16] LABS: ALT (SGPT) 31 U/L (8-55); AST (SGOT) 23 U/L (5-34); Albumin 2.8 g/dL (3.4-4.8); Alkaline Phosphatase 74 U/L (40-110); Anion Gap 10 mmol/L (10-20); BUN (Urea Nitrogen) 11 mg/dL (8.4-25.7); Bilirubin, Total 0.6 mg/dL (0.2-1.2); Calc. Creatinine Clearance 91 mL/min (70-130); Carbon Dioxide 22 mmol/L (23-31); Chloride 106 mmol/L (98-107); Estimated GFR-MDRD Greater than 90; Globulin 2.8 g/dL (2.4-3.5); Glucose 118 mg/dL (83-110); Phosphorus 2.7 mg/dL (2.3-4.7); Potassium 3.4 mmol/L (3.5-5.1); Protein, Total 5.6 g/dL (5.8-8.1); Sodium 135 mmol/L (136-145)
[2019-08-11] MEDS ORDERED: Potassium Phosphate 15 MMOL in Sodium Chloride 0.9% 250 ML 250 ML IVPB SCH (07:45)
[2019-08-11] MEDS: Aspirin 81 mg Enteric Coated Tablet PO SCH (09:21)
[2019-08-11] MEDS: Dextrose 5 % And 0.9 % NaCl 1,000 ML IV SCH ×2 (09:22→16:44)
[2019-08-11] MEDS: Docusate 100 MG CAP PO SCH ×2 (09:22→21:17)
[2019-08-11] MEDS: Bisacodyl 10 MG SUPP PR SCH (09:22)
[2019-08-11] MEDS: Heparin 25,000 units/D5W 500 ML IVPB SCH (14:32)
--- NOTE | 2019-08-11 18:04 | PRG ---
DATE OF SERVICE: 08/11/2019 SUBJECTIVE: The patient is currently on the telemetry floor. He is the patient we are seeing in consultation for a suspected ischemic bowel. Currently, his pain is controlled. He is tolerating liquids. He is passing gas and has had bowel movements. The patient has been afebrile and his white count is improving. PHYSICAL EXAMINATION: VITAL SIGNS: Temperature is 98.2, heart rate 79, blood pressure 137/63, respirations 18, oxygen saturation is 96% on room air. GENERAL: The patient is resting comfortably in a chair beside his bed. He is awake, alert, conversant, and appropriate. LUNGS: Clear to auscultation bilaterally. HEART: Regular rate and rhythm. ABDOMEN: Soft with minimal bilateral lower quadrant tenderness. There are no gross peritoneal signs. The patient has active bowel sounds. EXTREMITIES: Neurovascularly intact x4. LABORATORY FINDINGS: White blood cell count 8.7, hemoglobin 8.9, hematocrit 25.9, platelets 612. No bands are reported. Sodium 135, potassium 3.4, chloride 106, CO2 of 22, BUN 11, creatinine 0.78, glucose 118. Magnesium 2.0, phosphorus 2.7. There are no radiographs to review this morning. ASSESSMENT: 1. Abdominal pain, improving. 2. Concern for ischemic bowel and portal venous gas, improving. PLAN: Plan will be to advance to full liquid diet and allow nurses to advance as tolerated. If the patient tolerates a regular diet, we will likely sign off. There continues at this time to be no surgical intervention required. Job ID: [id number]
[2019-08-11] MEDS: Simvastatin 5 MG TAB PO SCH (21:06)
[2019-08-11] MEDS: Melatonin 3 MG TAB PO PRN (21:06)
[2019-08-11] MEDS: Acetaminophen 325 MG TAB PO PRN (21:06)
[2019-08-12] MEDS: MEROPENEM 1 GM/50 ML 1 GM in Premix Bag 1 BAG IVPB SCH ×3 (01:09→16:01)
[2019-08-12] MEDS ORDERED: diphenhydrAMINE 25 MG CAP PO PRN ×2 (02:41→02:56)
[2019-08-12] MEDS: Dextrose 5 % And 0.9 % NaCl 1,000 ML IV SCH ×2 (03:03→15:56)
[2019-08-12 04:11] LABS: #Eosinphils 0.2 thou/uL (0.0-0.7); #Lymphocytes 1.6 thou/uL (1.20-3.40); #Monocytes 1.1 thou/uL (0.11-0.59); #Neutrophils 4.9 thou/uL (1.40-6.50); %Basophils 0.2 % (0.0-1.0); %Eosinophils 2.4 % (0.0-10.0); %Lymphocytes 20.7 % (21.0-51.0); %Monocytes 14.1 % (0.0-10.0); %Neutrophils 62.6 % (42.0-75.0); Hemoglobin 9.2 g/dL (14.0-18.0); Mean Corpuscular HGB CONC 33.5 g/dL (32.0-36.0); Mean Corpuscular Hemoglobin 30.6 pg (27.0-31.0); Mean Corpuscular Volume 91.2 fL (78.0-98.0); Mean Platelet Volume 6.2 fL (7.4-10.4); Platelet Count 654 thou/uL (130-400); RBC Distribution Width 13.6 % (11.5-14.5); Red Blood Cell (RBC) Count 3.01 mill/uL (4.70-6.10); White Blood Cell (WBC) Count 7.8 thou/uL (4.8-10.8)
[2019-08-12 04:16] LABS: INR-International Normal Ratio 1.5; Prothrombin Time 17.6 sec (12.0-14.7)
[2019-08-12 04:17] LABS: PTT 85.6 sec (22.9-36.1)
[2019-08-12 04:33] LABS: ALT (SGPT) 33 U/L (8-55); AST (SGOT) 24 U/L (5-34); Albumin 2.9 g/dL (3.4-4.8); Alkaline Phosphatase 74 U/L (40-110); Anion Gap 11 mmol/L (10-20); BUN (Urea Nitrogen) 11 mg/dL (8.4-25.7); Bilirubin, Total 0.6 mg/dL (0.2-1.2); Calc. Creatinine Clearance 91 mL/min (70-130); Calcium 8.1 mg/dL (7.8-10.44); Carbon Dioxide 21 mmol/L (23-31); Chloride 107 mmol/L (98-107); Estimated GFR-MDRD Greater than 90; Globulin 2.7 g/dL (2.4-3.5); Glucose 114 mg/dL (83-110); Phosphorus 3.1 mg/dL (2.3-4.7); Potassium 3.5 mmol/L (3.5-5.1); Protein, Total 5.6 g/dL (5.8-8.1); Sodium 135 mmol/L (136-145)
[2019-08-12] MEDS ORDERED: Potassium Chloride 10 MEQ TAB PO SCH (08:45)
--- NOTE | 2019-08-12 08:46 | PDOC.HOSPP ---
- Subjective Encounter Date: 08/11/19 Encounter Time: 15:00 Subjective: Patient seen and examined for gen weakness/PV gas. Abd pain improving. No N/V. Tolerating full liqd diet. No new complaints. No overnight events - Objective Vital Signs & Weight: Vital Signs (12 hours) Temp Pulse Resp BP BP Pulse Ox 08/12/19 07:25 98.2 F 72 20 148/71 H 94 L 08/12/19 03:28 98.2 F 75 16 133/64 97 08/12/19 00:30 70 Weight Weight 173 lb I&O: 08/11/19 08/12/19 08/13/19 06:59 06:59 06:59 Intake Total 8410 6894 Output Total 9434 5943 950 Balance -1305 1109 -950 Result Diagrams: 08/12/19 03:48 08/12/19 03:48 EKG Reviewed by me: Yes (Tele SR) Hospitalist ROS - Review of Systems Respiratory: denies: cough, dry, shortness of breath, hemoptysis, SOB with excertion, pleuritic pain, sputum, wheezing, other Cardiovascular: denies: chest pain, palpitations, orthopnea, paroxysmal noc. dyspnea, edema, light headedness, other - Medication Medications: Active Medications Generic Name Dose Route Start Last Admin Trade Name Freq PRN Reason Stop Dose Admin Acetaminophen 650 mg 08/03/19 21:16 08/11/19 21:06 Tylenol PO 650 mg Q4H PRN Administration Headache/Fever/Mild Pain (1-3) Hydrocodone Bitart/Acetaminophen 1 tab 08/03/19 22:25 08/07/19 03:51 [place] 10/325 PO 1 tab Q8HR PRN Administration Moderate Pain (4-6) Hydrocodone Bitart/Acetaminophen 2 tab 08/04/19 12:42 08/06/19 15:55 [place] 10/325 PO 2 tab Q6H PRN Administration Severe Pain (7-10) Aspirin 81 mg 08/04/19 09:00 08/11/19 09:21 Ecotrin PO 81 mg DAILY SHAUN Administration Bisacodyl 10 mg 08/08/19 09:00 08/11/19 09:22 Dulcolax [place] Not Given DAILY SHAUN Docusate Sodium 100 mg 08/08/19 21:00 08/11/19 21:17 Colace PO Not Given BID SHAUN Meropenem 1 gm/ Device 50 mls @ 100 mls/hr 08/08/19 09:00 08/12/19 01:09 IVPB 50 mls Q8H SHAUN Administration Heparin Sodium/Dextrose 500 mls @ 0 mls/hr 08/09/19 09:45 08/11/19 14:32 Heparin 25,000 Units/D5w IVPB 500 mls INF SHAUN Administration Protocol Per Protocol Dextrose/Sodium Chloride 1,000 mls @ 75 mls/hr 08/09/19 09:41 08/12/19 03:03 D5 0.9% Ns IV 1,000 mls .[id number] SHAUN Administration Melatonin 3 mg 08/10/19 10:45 08/11/19 21:06 Melatonin PO 3 mg HS PRN Administration Insomnia Metoprolol Succinate 50 mg 08/09/19 09:00 08/11/19 09:21 Toprol Xl PO 50 mg DAILY SHAUN Administration Ondansetron HCl 4 mg 08/03/19 21:16 08/08/19 09:43 Zofran IVP 4 mg Q6H PRN Administration Nausea/Vomiting Simvastatin 10 mg 08/04/19 21:00 08/11/19 21:06 Zocor PO 10 mg HS SHAUN Administration Sodium Chloride 10 ml 08/08/19 09:00 08/11/19 21:17 Flush - Normal Saline IVF Not Given Q12HR SHAUN - Exam General Appearance: NAD Heart: RRR, no gallops Respiratory: no wheezes, no ronchi Gastrointestinal: soft, no guarding, no rigidity Gastrointestinal - other findings: mild tenderness in lower quadrants Neurological: no new deficit Hosp A/P - Plan DVT proph w/heparin 1. Syncope prob due to PAT vs hypotension - no new episode 2. Abd pain/Sepsis due to rectal tear/portal venous gas 3. Hyponatremia/Hypophosphatemia 4. Anemia probably due to nutritional deficiency. 5. [facility] aortic valve (1997) 6. Constipation 7. Subtherapeutic INR. 8. Dyslipidemia. 9. Recent knee surgery. 10. CKD 3. 11. Hypertension. PLAN: Cont Full liqd diet per Gen surg cont IVF with Meropenem Cont Heparin drip Lovenox/Warfarin on hold Cont Betablockers per Cardiology Cont other meds as above AM labs
[2019-08-12] MEDS: Aspirin 81 mg Enteric Coated Tablet PO SCH (09:11)
[2019-08-12] MEDS: Docusate 100 MG CAP PO SCH ×2 (09:12→20:50)
[2019-08-12] MEDS: Bisacodyl 10 MG SUPP PR SCH (09:12)
[2019-08-12] MEDS ORDERED: Enoxaparin Sodium 80 MG/0.8 ML SYRINGE SC SCH ×2 (14:30→21:00)
--- NOTE | 2019-08-12 15:55 | PRG ---
DATE OF SERVICE: 08/12/2019 The patient is currently on the telemetry floor. He is the patient whom we are seeing in consultation for suspected ischemic bowel. Over the past 2 days, the patient remains afebrile. His white count continued to trend downward. He is tolerating a diet, passing gas and having bowel movements. The patient was evaluated this morning with Dr. Anderson, who agrees that the patient is highly and likely to have ischemic bowel as was the original concern. In light of this and his once again benign exam, there are no surgical indications or recommendations at this time. We will sign off this time. Please consult this if needed. Job ID: [id number]
[2019-08-12] MEDS: Potassium Chloride 10 MEQ TAB PO SCH (16:01)
[2019-08-12] MEDS ORDERED: Warfarin Sodium 5 MG TAB PO SCH ×2 (17:00)
[2019-08-12] MEDS ORDERED: Dextrose 5 % And 0.9 % NaCl 1,000 ML IV SCH (17:07)
--- NOTE | 2019-08-12 17:14 | PDOC.HOSPP ---
- Subjective Encounter Date: 08/12/19 Encounter Time: 16:00 Subjective: Patient seen and examined for gen weakness. Feels better. No CP/N/V/syncope. No new complaints. No overnight events - Objective Vital Signs & Weight: Vital Signs (12 hours) Temp Pulse Resp BP Pulse Ox 08/12/19 15:15 98.4 F 75 16 141/70 H 96 08/12/19 11:08 97.6 F 65 16 136/65 95 08/12/19 07:25 98.2 F 72 20 148/71 H 94 L Weight Weight 173 lb I&O: 08/11/19 08/12/19 08/13/19 06:59 06:59 06:59 Intake Total 8570 9704 Output Total 6790 5553 1600 Balance -1305 1109 -1600 Result Diagrams: 08/12/19 03:48 08/12/19 03:48 Additional Labs: Accuchecks 08/12/19 16:29 POC Glucose 107 EKG Reviewed by me: Yes (Tele SR) Hospitalist ROS - Review of Systems Respiratory: denies: cough, dry, shortness of breath, hemoptysis, SOB with excertion, pleuritic pain, sputum, wheezing, other Cardiovascular: denies: chest pain, palpitations, orthopnea, paroxysmal noc. dyspnea, edema, light headedness, other - Medication Medications: Active Medications Generic Name Dose Route Start Last Admin Trade Name Freq PRN Reason Stop Dose Admin Acetaminophen 650 mg 08/03/19 21:16 08/11/19 21:06 Tylenol PO 650 mg Q4H PRN Administration Headache/Fever/Mild Pain (1-3) Hydrocodone Bitart/Acetaminophen 1 tab 08/03/19 22:25 08/07/19 03:51 [place] 10/325 PO 1 tab Q8HR PRN Administration Moderate Pain (4-6) Hydrocodone Bitart/Acetaminophen 2 tab 08/04/19 12:42 08/06/19 15:55 [place] 10/325 PO 2 tab Q6H PRN Administration Severe Pain (7-10) Aspirin 81 mg 08/04/19 09:00 08/12/19 09:11 Ecotrin PO 81 mg DAILY SHAUN Administration Bisacodyl 10 mg 08/08/19 09:00 08/12/19 09:12 Dulcolax [place] Not Given DAILY SHAUN Docusate Sodium 100 mg 08/08/19 21:00 08/12/19 09:12 Colace PO Not Given BID SHAUN Meropenem 1 gm/ Device 50 mls @ 100 mls/hr 08/08/19 09:00 08/12/19 16:01 IVPB 50 mls Q8H SHAUN Administration Melatonin 3 mg 08/10/19 10:45 08/11/19 21:06 Melatonin PO 3 mg HS PRN Administration Insomnia Metoprolol Succinate 50 mg 08/09/19 09:00 08/12/19 09:11 Toprol Xl PO 50 mg DAILY SHAUN Administration Ondansetron HCl 4 mg 08/03/19 21:16 08/08/19 09:43 Zofran IVP 4 mg Q6H PRN Administration Nausea/Vomiting Potassium Chloride 10 meq 08/12/19 17:00 08/12/19 16:01 [place] 10 PO 10 meq BID-WM SHAUN Administration Simvastatin 10 mg 08/04/19 21:00 08/11/19 21:06 Zocor PO 10 mg HS SHAUN Administration Sodium Chloride 10 ml 08/08/19 09:00 08/12/19 09:28 Flush - Normal Saline IVF Not Given Q12HR SHAUN Warfarin Sodium 7.5 mg 08/12/19 17:00 08/12/19 16:02 Coumadin PO 7.5 mg 1700 SHAUN Administration - Exam General Appearance: NAD Heart: RRR, no gallops Respiratory: no wheezes, no ronchi Gastrointestinal: soft, non-distended Extremities: no cyanosis Neurological: no new deficit Hosp A/P - Plan DVT proph w/lovenox 1. Syncope prob due to PAT vs hypotension - no new episode 2. Abd pain/Sepsis due to rectal tear/portal venous gas 3. Hyponatremia/Hypophosphatemia 4. Anemia probably due to nutritional deficiency. 5. [facility] aortic valve (1997) 6. Constipation 7. Subtherapeutic INR. 8. Dyslipidemia. 9. Recent knee surgery. 10. CKD 3. 11. Hypertension. PLAN: Advance diet per Gen surg Cont Meropenem Change Heparin drip to Lovenox Restart Warfarin Cont Toprol XL Cont other meds as above AM labs DC in AM with [facility] if stable
[2019-08-12] MEDS: Simvastatin 5 MG TAB PO SCH (20:49)
[2019-08-12] MEDS: Acetaminophen 325 MG TAB PO PRN (20:49)
[2019-08-13] MEDS: MEROPENEM 1 GM/50 ML 1 GM in Premix Bag 1 BAG IVPB SCH ×2 (01:55→09:44)
[2019-08-13] MEDS ORDERED: Enoxaparin Sodium 80 MG/0.8 ML SYRINGE SC SCH (03:00)
[2019-08-13 04:38] LABS: INR-International Normal Ratio 1.4; Prothrombin Time 17.2 sec (12.0-14.7)
[2019-08-13 05:27] LABS: ALT (SGPT) 31 U/L (8-55); AST (SGOT) 21 U/L (5-34); Albumin 2.9 g/dL (3.4-4.8); Alkaline Phosphatase 79 U/L (40-110); Anion Gap 11 mmol/L (10-20); BUN (Urea Nitrogen) 14 mg/dL (8.4-25.7); Bilirubin, Total 0.6 mg/dL (0.2-1.2); Calc. Creatinine Clearance 84 mL/min (70-130); Calcium 8.2 mg/dL (7.8-10.44); Carbon Dioxide 22 mmol/L (23-31); Chloride 105 mmol/L (98-107); Estimated GFR-MDRD Greater than 90; Globulin 2.7 g/dL (2.4-3.5); Glucose 102 mg/dL (83-110); Phosphorus 2.7 mg/dL (2.3-4.7); Potassium 3.6 mmol/L (3.5-5.1); Protein, Total 5.6 g/dL (5.8-8.1); Sodium 134 mmol/L (136-145)
[2019-08-13] MEDS: Bisacodyl 10 MG SUPP PR SCH (08:13)
[2019-08-13] MEDS: Potassium Chloride 10 MEQ TAB PO SCH (09:43)
[2019-08-13] MEDS: Docusate 100 MG CAP PO SCH (09:44)
[2019-08-13] MEDS: Aspirin 81 mg Enteric Coated Tablet PO SCH (09:44)
[2019-08-13 11:26] VITALS: BP 138/67; TEMP 97.9
--- NOTE | 2019-08-13 12:34 | PRG ---
DATE OF SERVICE: 08/13/2019 SUBJECTIVE: Mr. Vivar has been feeling well. He is still having an occasional supraventricular tachycardia. OBJECTIVE: VITAL SIGNS: Blood pressure is 138/67, pulse 70. LUNGS: Clear. CARDIAC: Normal S1 and normal S2. ABDOMEN: Soft and nontender. EXTREMITIES: Reveal no edema. ASSESSMENT: 1. Previous aortic valve replacement. 2. Subtherapeutic INR, still low at 1.4. 3. Postoperative status. PLAN: 1. To go home on metoprolol-XL 50 mg a day. 2. Coumadin 7.5 mg a day until the INR is 1.9 or greater. 3. He is going to follow up in the [facility]. I explained to the it is very important that someone follows the Coumadin level. She said she thinks that will happen through the clinic and her, and I told her that she needs to make sure someone is following the Coumadin would need to drive to [place] and get a fingerstick Coumadin. Job ID: [id number]
--- NOTE | 2019-08-14 09:08 | DIS ---
DATE OF ADMISSION: 08/03/2019 DATE OF DISCHARGE: 08/13/2019 DISCHARGE DISPOSITION: Home. FOLLOWUP: 1. Follow up with primary care physician at [facility] in [place] in 1 week. 2. Home health care through [facility] has been arranged. 3. Follow up with Electrophysiology as scheduled. 4. Holter monitor has been arranged. DISCHARGE MEDICATIONS: 1. Toprol-XL 50 mg daily. 2. Lovenox 80 mg twice a day until INR is therapeutic. 3. Aspirin 81 mg daily. The patient was advised to discontinue amlodipine and CARLOS A inhibitor. All other home medications were left unchanged. The patient was seen and examined on the day of discharge. Denies any new complaints. No chest pain, shortness of breath, or palpitations reported. Abdominal pain has significantly improved. BRIEF HOSPITAL COURSE: The patient is a 79-year-old male with recent left total knee replacement, presented to the hospital with near syncope on July,. His blood pressure by EMS was in systolic 70s. Please refer to the history and physical for further details. The patient was admitted to the hospital with diagnosis of generalized weakness along with syncope. On the awake overnight monitor, he was found to have paroxysmal atrial tachycardia. For this reason, Cardiology started him on Toprol-XL. Holter monitor has been arranged. His INR was subtherapeutic. He required Lovenox 80 mg twice a day during this hospitalization. During this hospitalization, the patient developed intractable lower abdominal pain. A stat CT scan of the abdomen was done on the 06 of August that showed development of peripheral portal venous gas within the right and the left hepatic lobe. There was a possibility of intimal injury to the anterior aspect of the rectal vault from retained stool. There was a small amount of gas in the anterior rectal wall as well. He was made n.p.o. and was started on IV fluids with meropenem. The patient was seen by General Surgery. His symptoms improved with conservative measures. He was switched to heparin drip due to potential surgical intervention. Later on, his diet was advanced. He has been tolerating regular diet over the last 12 hours. The patient has been cleared for discharge by Cardiology, Electrophysiology, and General Surgery. FINAL DIAGNOSES: 1. Syncope, probably due to hypotension versus paroxysmal atrial tachycardia and Holter monitor has been arranged. 2. Abdominal pain/sepsis due to rectal tear with portal venous gas, improved with conservative management. 3. Hyponatremia. 4. Hypophosphatemia. 5. Anemia, probably due to nutritional deficiency. 6. History of mechanical aortic valve placed in 1997 with subtherapeutic INR. 7. Severe constipation, resolved. 8. Dyslipidemia. 9. Recent left knee surgery. 10. Chronic kidney disease, stage 3. 11. Hypertension. The patient understands the above plan of care. Home Health Care has been arranged for INR monitoring. Job ID: [id number]
--- NOTE | 2019-08-15 08:24 | PQF ---
ALLAN GARCIA JUAN [id number] [facility] [id number] CLINICAL DOCUMENTATION CLARIFICATION FORM: POST DISCHARGE Addendum to original discharge summary date: ____ Late entry note date: __ DATE: 08/15/2019 ATTN: TOBIN VAZQUEZ Please exercise your independent, professional judgment in responding to the clarification form. Clinical indicators are provided on the bottom of this form for your review Diagnosis: Sepsis Present on Admission (POA): [ ] Yes [ x] No [ ] Unable to determine Coding guidelines require hospitals to identify whether a diagnosis was present on admission (POA) or not. To accurately assign the appropriate POA indicator, this information must be clearly documented within the medical record. CLINICAL INDICATORS - SIGNS / SYMPTOMS / LABS - Abd pain/sepsis due to rectal tear/ portal venous gas- Hospital PN, 08/08, Omar Saavedra MD - Temp: 97.2L ON 08/08- Vital Signs report - Hypotension: - H&P, 08/02, TOBIN VAZQUEZ - WBC: 14.6H on 08/08, 12.4H on 08/09- Laboratory report RISK FACTORS: - Hypotension- DS, 08/12, Keri Nelson MD - Paroxysmal atrial tachycardia - DS, 08/12, Keri Nelson MD TREATMENT: - Conservative management- DS, 08/12, Keir Nelson MD - IV. Sodium chloride.MAR, 08/03 (This form is maintained as a part of the permanent medical record) 2014 [employer] All Rights Reserved [email or web address]
== END 2019-08-13 13:36 | disposition home health service (06) | DRG 308 ==
LOC: ERS 18:18 → OBSVTOIN 20:47 → 2NO 20:47
PROVIDERS: ADMIT Internal Medicine; ATTEND Internal Medicine
DX: I47.1 Supraventricular tachycardia (principal); A41.9 Sepsis, unspecified organism; E87.1 Hypo-osmolality and hyponatremia; I12.0 Hypertensive chronic kidney disease with stage 5 chronic kidney disease or end stage renal disease; K56.7 Ileus, unspecified; D53.9 Nutritional anemia, unspecified; E83.39 Other disorders of phosphorus metabolism; K59.00 Constipation, unspecified; E78.5 Hyperlipidemia, unspecified; I95.1 Orthostatic hypotension; D63.1 Anemia in chronic kidney disease; I45.10 Unspecified right bundle-branch block; N18.3 Chronic kidney disease, stage 3 (moderate); Z96.652 Presence of left artificial knee joint; E78.00 Pure hypercholesterolemia, unspecified; Z79.01 Long term (current) use of anticoagulants; Z95.2 Presence of prosthetic heart valve
CPT/HCPCS: 36415; 36416; 36600; 71275; 74177; 80048; 80053; 80061; 82553; 83605; 83735; 83880; 84100; 84443; 84484; 85007; 85014; 85018; 85025; 85027; 85049; 85610; 85730; 93005; 93306; 96360; 96361; J1644; J1650; J2185; J2405; J7050; Q0163

== ENCOUNTER 2020-06-26 11:30 | Inpatient (IN) | payer MEDICARE ==
[2020-06-26] MEDS ORDERED: Vancomycin 1 GM/200 ML BAG ONE (15:15)
[2020-06-26 15:28] LABS: #Basophils 0.1 thou/uL (0.0-0.2); #Eosinphils 0.2 thou/uL (0.0-0.7); #Lymphocytes 1.9 thou/uL (1.20-3.40); #Monocytes 0.7 thou/uL (0.11-0.59); #Neutrophils 3.3 thou/uL (1.40-6.50); %Basophils 0.8 % (0.0-1.0); %Eosinophils 3.9 % (0.0-10.0); %Lymphocytes 31.1 % (21.0-51.0); %Monocytes 11.1 % (0.0-10.0); %Neutrophils 53.1 % (42.0-75.0); Mean Corpuscular HGB CONC 31.8 g/dL (32.0-36.0); Mean Corpuscular Hemoglobin 28.9 pg (27.0-31.0); Mean Corpuscular Volume 90.7 fL (78.0-98.0); Mean Platelet Volume 7.3 fL (7.4-10.4); Platelet Count 222 thou/uL (130-400); RBC Distribution Width 13.6 % (11.5-14.5); Red Blood Cell (RBC) Count 4.85 mill/uL (4.70-6.10); White Blood Cell (WBC) Count 6.2 thou/uL (4.8-10.8)
[2020-06-26 15:35] LABS: INR-International Normal Ratio 2.3; PTT 38.9 sec (22.9-36.1); Prothrombin Time 25.6 sec (12.0-14.7)
[2020-06-26 15:44] LABS: ALT (SGPT) 16 U/L (8-55); AST (SGOT) 23 U/L (5-34); Albumin 3.8 g/dL (3.4-4.8); Alkaline Phosphatase 105 U/L (40-110); Anion Gap 11 mmol/L (10-20); BUN (Urea Nitrogen) 25 mg/dL (8.4-25.7); Bilirubin, Total 0.3 mg/dL (0.2-1.2); CK (CPK) 92 U/L (30-200); Calc. Creatinine Clearance 0 mL/min (70-130); Calcium 8.9 mg/dL (7.8-10.44); Carbon Dioxide 22 mmol/L (23-31); Chloride 110 mmol/L (98-107); Globulin 3.1 g/dL (2.4-3.5); Glucose 104 mg/dL (83-110); Potassium 4.1 mmol/L (3.5-5.1); Protein, Total 6.9 g/dL (5.8-8.1); Sodium 139 mmol/L (136-145)
[2020-06-26] MEDS ORDERED: Ondansetron PF 4 MG/2 ML Vial IVP PRN ×2 (16:26→22:05)
[2020-06-26] MEDS ORDERED: Acetaminophen 325 MG TAB PO PRN ×2 (16:26→22:05)
[2020-06-26] MEDS ORDERED: Heparin 25,000 units/D5W 500 ML IVPB SCH (16:30)
[2020-06-26] MEDS ORDERED: Heparin 10,000 UNITS/ 10 ML VIAL SLOW IVP SCH (16:30)
[2020-06-26 17:08] LABS: Hemoglobin 14.3 g/dL (14.0-18.0); Platelet Count 205 thou/uL (130-400)
[2020-06-26 19:59] LABS: Troponin I 0.071 ng/mL (< 0.028)
[2020-06-26] MEDS ORDERED: Senokot S 8.6-50 MG TAB PO PRN (22:05)
[2020-06-26] MEDS ORDERED: Bisacodyl 5 MG TAB PO PRN (22:05)
[2020-06-26] MEDS ORDERED: Bisacodyl 10 MG SUPP PR PRN (22:05)
[2020-06-26 22:11] VITALS: BMI 28.0
[2020-06-26] MEDS ORDERED: Atorvastatin Calcium 20 MG TAB PO SCH (22:15)
[2020-06-26] MEDS: cefTRIAXone\\ROCEPHIN 2 GM in Sodium Chloride 0.9% 100 ML IVPB SCH (22:42)
[2020-06-26] MEDS: Sodium Chloride 0.9% 1,000 ML IV SCH (22:43)
[2020-06-26 23:16] LABS: CKMB 2.3 ng/mL (0-6.6)
[2020-06-27 01:53] LABS: SARS-CoV-2 PCR by NAA Not Detected (NotDetected)
[2020-06-27 04:14] LABS: INR-International Normal Ratio 2.1; Prothrombin Time 24.4 sec (12.0-14.7)
[2020-06-27 04:20] LABS: #Eosinphils 0.3 thou/uL (0.0-0.7); #Lymphocytes 1.6 thou/uL (1.20-3.40); #Monocytes 0.8 thou/uL (0.11-0.59); #Neutrophils 2.9 thou/uL (1.40-6.50); %Basophils 0.8 % (0.0-1.0); %Lymphocytes 28.1 % (21.0-51.0); %Monocytes 14.6 % (0.0-10.0); %Neutrophils 51.4 % (42.0-75.0); Hemoglobin 13.7 g/dL (14.0-18.0); Mean Corpuscular HGB CONC 32.2 g/dL (32.0-36.0); Mean Corpuscular Hemoglobin 29.1 pg (27.0-31.0); Mean Corpuscular Volume 90.5 fL (78.0-98.0); Mean Platelet Volume 7.3 fL (7.4-10.4); Platelet Count 195 thou/uL (130-400); RBC Distribution Width 13.5 % (11.5-14.5); Red Blood Cell (RBC) Count 4.69 mill/uL (4.70-6.10); White Blood Cell (WBC) Count 5.7 thou/uL (4.8-10.8)
[2020-06-27 04:44] LABS: Anion Gap 9 mmol/L (10-20); BUN (Urea Nitrogen) 23 mg/dL (8.4-25.7); Calc. Creatinine Clearance 66 mL/min (70-130); Calcium 8.6 mg/dL (7.8-10.44); Carbon Dioxide 24 mmol/L (23-31); Chloride 112 mmol/L (98-107); Glucose 105 mg/dL (83-110); Potassium 3.9 mmol/L (3.5-5.1); Sodium 141 mmol/L (136-145)
[2020-06-27] MEDS: Sodium Chloride 0.9% 1,000 ML IV SCH (08:00)
[2020-06-27] MEDS ORDERED: Vancomycin HCl 1.25 GM in Sodium Chloride 0.9% 250 ML 250 ML IVPB SCH (09:00)
[2020-06-27] MEDS: Polyethylene Glycol 3350 17 GM Packet PO SCH (10:09)
[2020-06-27] MEDS: Aspirin 81 mg Enteric Coated Tablet PO SCH (10:09)
[2020-06-27] MEDS: VANCOMYCIN 1.25 GM/250 ML BAG 1.25 GM in Premix Bag 1 BAG IVPB SCH (10:12)
[2020-06-27] MEDS: cefTRIAXone\\ROCEPHIN 2 GM in Sodium Chloride 0.9% 100 ML IVPB SCH (17:27)
[2020-06-27] MEDS ORDERED: hydrALAZINE 20 MG/ML VIAL SLOW IVP PRN (19:49)
[2020-06-27] MEDS: Atorvastatin Calcium 20 MG TAB PO SCH (20:38)
[2020-06-28 04:45] LABS: INR-International Normal Ratio 1.6; Prothrombin Time 18.9 sec (12.0-14.7)
[2020-06-28] MEDS: Aspirin 81 mg Enteric Coated Tablet PO SCH (08:37)
[2020-06-28] MEDS: VANCOMYCIN 1.25 GM/250 ML BAG 1.25 GM in Premix Bag 1 BAG IVPB SCH (08:39)
[2020-06-28] MEDS ORDERED: Fentanyl 100 MCG/2 ML VIAL ONE (10:23)
[2020-06-28] MEDS ORDERED: Lidocaine 1% PF 5 ML VIAL ONE (10:30)
[2020-06-28] MEDS ORDERED: Ondansetron PF 4 MG/2 ML Vial ONE (10:30)
[2020-06-28] MEDS ORDERED: PROPOFOL 200 MG/20 ML VIAL ONE (10:30)
[2020-06-28] MEDS ORDERED: Warfarin Sodium 5 MG TAB PO SCH (11:31)
[2020-06-28] MEDS ORDERED: HYDROcodone/Acetaminophen 5/325 mg Tablet ONE (11:49)
[2020-06-28] MEDS: HYDROcodone/Acetaminophen 5/325 mg Tablet PO PRN (11:50)
[2020-06-28] MEDS: Polyethylene Glycol 3350 17 GM Packet PO SCH (12:58)
[2020-06-28] MEDS ORDERED: HYDROcodone/Acetaminophen 5/325 mg Tablet PO SCH (13:30)
[2020-06-28] MEDS: cefTRIAXone\\ROCEPHIN 2 GM in Sodium Chloride 0.9% 100 ML IVPB SCH (19:58)
[2020-06-28] MEDS: Atorvastatin Calcium 20 MG TAB PO SCH (20:56)
[2020-06-28] MEDS ORDERED: Enoxaparin Sodium 60 MG/0.6 ML SYRINGE SC SCH (21:00)
[2020-06-29 04:22] LABS: #Eosinphils 0.2 thou/uL (0.0-0.7); #Lymphocytes 1.9 thou/uL (1.20-3.40); #Monocytes 0.8 thou/uL (0.11-0.59); #Neutrophils 3.5 thou/uL (1.40-6.50); %Basophils 0.3 % (0.0-1.0); %Eosinophils 3.5 % (0.0-10.0); %Monocytes 12.2 % (0.0-10.0); Hemoglobin 14.1 g/dL (14.0-18.0); Mean Corpuscular HGB CONC 32.9 g/dL (32.0-36.0); Mean Corpuscular Hemoglobin 29.8 pg (27.0-31.0); Mean Corpuscular Volume 90.5 fL (78.0-98.0); Platelet Count 196 thou/uL (130-400); RBC Distribution Width 13.4 % (11.5-14.5); Red Blood Cell (RBC) Count 4.73 mill/uL (4.70-6.10); White Blood Cell (WBC) Count 6.4 thou/uL (4.8-10.8)
[2020-06-29 04:39] LABS: INR-International Normal Ratio 1.3; Prothrombin Time 16.1 sec (12.0-14.7)
[2020-06-29] MEDS ORDERED: Warfarin Sodium 5 MG TAB PO SCH (06:45)
[2020-06-29] MEDS: Aspirin 81 mg Enteric Coated Tablet PO SCH (10:04)
[2020-06-29] MEDS: Enoxaparin Sodium 60 MG/0.6 ML SYRINGE SC SCH ×2 (10:04→20:21)
[2020-06-29] MEDS: Polyethylene Glycol 3350 17 GM Packet PO SCH (10:13)
[2020-06-29] MEDS: cefTRIAXone\\ROCEPHIN 2 GM in Sodium Chloride 0.9% 100 ML IVPB SCH (17:24)
[2020-06-29] MEDS: Atorvastatin Calcium 20 MG TAB PO SCH (20:21)
[2020-06-29 21:51] LABS: Hemoglobin 14.6 g/dL (14.0-18.0); Platelet Count 211 thou/uL (130-400)
[2020-06-29 22:03] LABS: INR-International Normal Ratio 1.3; Prothrombin Time 16.1 sec (12.0-14.7)
[2020-06-29] MEDS: HYDROcodone/Acetaminophen 5/325 mg Tablet PO PRN (22:16)
[2020-06-30 04:53] LABS: INR-International Normal Ratio 1.3
[2020-06-30 05:35] LABS: Band 9 % (5-11); Eosinophils 4 % (0-10); Hemoglobin 13.4 g/dL (14.0-18.0); Lymphocytes 33 % (21-51); MDiff Complete? YES; Mean Corpuscular HGB CONC 33.4 g/dL (32.0-36.0); Mean Corpuscular Hemoglobin 30.2 pg (27.0-31.0); Mean Corpuscular Volume 90.4 fL (78.0-98.0); Mean Platelet Volume 7.1 fL (7.4-10.4); Monocytes 6 % (0-10); Neutrophil 48 % (42-75); Platelet Count 205 thou/uL (130-400); RBC Distribution Width 13.5 % (11.5-14.5); Red Blood Cell (RBC) Count 4.44 mill/uL (4.70-6.10); White Blood Cell (WBC) Count 6.1 thou/uL (4.8-10.8)
[2020-06-30] MEDS ORDERED: Warfarin Sodium 5 MG TAB PO SCH (06:45)
[2020-06-30] MEDS ORDERED: Silver Nitrate Application 1 EACH TOP SCH ×2 (07:00→07:15)
[2020-06-30] MEDS ORDERED: Silver Sulfadiazine 50 GM JAR TP SCH (07:00)
[2020-06-30] MEDS: Enoxaparin Sodium 40 MG/0.4 ML SYRINGE SC SCH ×2 (08:40→21:11)
[2020-06-30] MEDS: Aspirin 81 mg Enteric Coated Tablet PO SCH (08:40)
[2020-06-30] MEDS: HYDROcodone/Acetaminophen 5/325 mg Tablet PO PRN ×3 (08:40→21:12)
[2020-06-30] MEDS: Polyethylene Glycol 3350 17 GM Packet PO SCH (08:41)
[2020-06-30] MEDS: cefTRIAXone\\ROCEPHIN 2 GM in Sodium Chloride 0.9% 100 ML IVPB SCH (16:08)
[2020-06-30] MEDS: Atorvastatin Calcium 20 MG TAB PO SCH (21:12)
[2020-07-01 05:00] LABS: INR-International Normal Ratio 1.2; Prothrombin Time 15.6 sec (12.0-14.7)
[2020-07-01] MEDS ORDERED: Warfarin Sodium 5 MG TAB PO SCH (06:45)
[2020-07-01] MEDS: Aspirin 81 mg Enteric Coated Tablet PO SCH (08:18)
[2020-07-01] MEDS: Polyethylene Glycol 3350 17 GM Packet PO SCH (08:21)
[2020-07-01] MEDS: cefTRIAXone\\ROCEPHIN 2 GM in Sodium Chloride 0.9% 100 ML IVPB SCH (16:12)
[2020-07-01] MEDS ORDERED: Sodium Chloride 0.9% 100 ML ONE (16:50)
[2020-07-01] MEDS ORDERED: cefTRIAXone\\ROCEPHIN 2 GM VIAL ONE (16:50)
[2020-07-01] MEDS ORDERED: Mineral Oil Sterile 10ML 10 ML UDCUP ONE (17:10)
[2020-07-01] MEDS ORDERED: Bupivacaine 0.25% HCL 30 ML VIAL ONE (17:10)
[2020-07-01] MEDS ORDERED: Bacitracin Zinc Ointment 30 gm TUBE ONE (17:10)
[2020-07-01] MEDS ORDERED: EPINEPHrine 1 MG/ML AMP ONE (17:10)
[2020-07-01] MEDS ORDERED: Fentanyl 100 MCG/2 ML VIAL ONE ×2 (17:29→19:04)
[2020-07-01] MEDS ORDERED: Tranexamic Acid 1,000 MG/10 ML VIAL ONE (17:36)
[2020-07-01] MEDS ORDERED: ePHEDrine Sulfate 50 MG/10 ML VIAL ONE (17:49)
[2020-07-01] MEDS ORDERED: Dexamethasone 20 MG/5 ML VIAL ONE (17:49)
[2020-07-01] MEDS ORDERED: Lidocaine 1% PF 5 ML VIAL ONE (17:49)
[2020-07-01] MEDS ORDERED: PROPOFOL 200 MG/20 ML VIAL ONE (17:49)
[2020-07-01] MEDS ORDERED: Glycopyrrolate 0.2 MG/ML 5 ML SYRINGE ONE (17:49)
[2020-07-01] MEDS ORDERED: Ondansetron PF 4 MG/2 ML Vial ONE (17:49)
[2020-07-01] MEDS: Atorvastatin Calcium 20 MG TAB PO SCH (20:21)
[2020-07-02] MEDS ORDERED: Warfarin Sodium 5 MG TAB PO SCH ×2 (07:15→09:03)
[2020-07-02 08:27] LABS: INR-International Normal Ratio 1.3; Prothrombin Time 16.2 sec (12.0-14.7)
[2020-07-02] MEDS ORDERED: Enoxaparin Sodium 30 MG/0.3 ML SYRINGE SC SCH ×2 (09:00)
[2020-07-02] MEDS ORDERED: Warfarin Sodium 7.5 MG TAB PO SCH (09:15)
[2020-07-02] MEDS: Enoxaparin Sodium 40 MG/0.4 ML SYRINGE SC SCH ×2 (09:30→20:58)
[2020-07-02] MEDS: Polyethylene Glycol 3350 17 GM Packet PO SCH (09:30)
[2020-07-02] MEDS: Aspirin 81 mg Enteric Coated Tablet PO SCH (09:30)
[2020-07-02] MEDS ORDERED: Warfarin Sodium 2.5 MG TAB PO SCH (10:45)
[2020-07-02] MEDS: cefTRIAXone\\ROCEPHIN 2 GM in Sodium Chloride 0.9% 100 ML IVPB SCH (16:45)
[2020-07-02] MEDS: Atorvastatin Calcium 20 MG TAB PO SCH (20:58)
[2020-07-03 05:26] LABS: INR-International Normal Ratio 1.6
[2020-07-03] MEDS: Aspirin 81 mg Enteric Coated Tablet PO SCH (08:39)
[2020-07-03] MEDS: Polyethylene Glycol 3350 17 GM Packet PO SCH (08:40)
[2020-07-03 11:45] VITALS: BP 167/79; TEMP 98.4
== END 2020-07-03 14:36 | disposition home health service (06) | DRG 574 ==
LOC: ERS 11:30 → ERHOLD 16:47 → 2NO 22:10
PROVIDERS: ADMIT Internal Medicine; ATTEND Hospitalist
PROC: 0JB60ZZ Excision of Chest Subcutaneous Tissue and Fascia, Open Approach (ICD-10-PCS; 2020-06-28)
PROC: 3E033XZ Introduction of Vasopressor into Peripheral Vein, Percutaneous Approach (ICD-10-PCS; principal; 2020-07-01)
PROC: 0HR5X74 Replacement of Chest Skin with Autologous Tissue Substitute, Partial Thickness, External Approach (ICD-10-PCS; 2020-07-01)
DX: L03.313 Cellulitis of chest wall (principal); N17.9 Acute kidney failure, unspecified; Z20.822 Contact with and (suspected) exposure to COVID-19; I10 Essential (primary) hypertension; E78.5 Hyperlipidemia, unspecified; I25.10 Atherosclerotic heart disease of native coronary artery without angina pectoris; Z96.652 Presence of left artificial knee joint; E78.00 Pure hypercholesterolemia, unspecified; L91.0 Hypertrophic scar; B96.89 Other specified bacterial agents as the cause of diseases classified elsewhere; Z95.2 Presence of prosthetic heart valve; Z95.1 Presence of aortocoronary bypass graft; Z87.891 Personal history of nicotine dependence; Z95.0 Presence of cardiac pacemaker
CPT/HCPCS: 36415; 71046; 80048; 80053; 82550; 82553; 84484; 85025; 85610; 85730; 87070; 87077; 87186; 87205; 87635; 93005; 96365; J0171; J0696; J1100; J1644; J1650; J2405; J2704; J3010; J3370; J3490; S0020; U0003; U0005

== ENCOUNTER 2021-05-27 08:53 | Emergency (ER) | payer MEDICARE ==
[2021-05-27 09:26] LABS: #Eosinphils 0.1 thou/uL (0.0-0.7); #Lymphocytes 0.8 thou/uL (1.20-3.40); #Neutrophils 5.8 thou/uL (1.40-6.50); %Basophils 0.3 % (0.0-1.0); %Eosinophils 0.7 % (0.0-10.0); %Lymphocytes 10.5 % (21.0-51.0); %Monocytes 13.6 % (0.0-10.0); Hemoglobin 10.2 g/dL (14.0-18.0); Mean Corpuscular HGB CONC 33.2 g/dL (32.0-36.0); Mean Corpuscular Hemoglobin 32.7 pg (27.0-31.0); Mean Corpuscular Volume 98.5 fL (78.0-98.0); Mean Platelet Volume 7.1 fL (7.4-10.4); Platelet Count 229 thou/uL (130-400); RBC Distribution Width 13.1 % (11.5-14.5); Red Blood Cell (RBC) Count 3.12 mill/uL (4.70-6.10); White Blood Cell (WBC) Count 7.7 thou/uL (4.8-10.8)
[2021-05-27 09:42] LABS: INR-International Normal Ratio 3.3; Prothrombin Time 33.9 sec (12.0-14.7)
[2021-05-27 09:44] LABS: ALT (SGPT) 27 U/L (8-55); AST (SGOT) 42 U/L (5-34); Albumin 4.1 g/dL (3.4-4.8); Alkaline Phosphatase 76 U/L (40-110); Anion Gap 15 mmol/L (10-20); BUN (Urea Nitrogen) 14 mg/dL (8.4-25.7); Bilirubin, Total 1.4 mg/dL (0.2-1.2); Calc. Creatinine Clearance 0 mL/min (70-130); Calcium 8.9 mg/dL (7.8-10.44); Carbon Dioxide 21 mmol/L (23-31); Chloride 105 mmol/L (98-107); Glucose 127 mg/dL (83-110); Potassium 4.2 mmol/L (3.5-5.1); Protein, Total 7.1 g/dL (5.8-8.1); Sodium 137 mmol/L (136-145)
[2021-05-27] MEDS ORDERED: HYDROcodone/Acetaminophen 5/325 mg Tablet ONE (10:04)
== END 2021-05-27 10:08 | disposition home or self-care (01) ==
LOC: ERS 08:53
DX: S30.0XXA Contusion of lower back and pelvis, initial encounter (principal); S80.11XA Contusion of right lower leg, initial encounter; I10 Essential (primary) hypertension; Z79.899 Other long term (current) drug therapy; Z79.82 Long term (current) use of aspirin; Z79.01 Long term (current) use of anticoagulants; E78.00 Pure hypercholesterolemia, unspecified; W19.XXXA Unspecified fall, initial encounter
CPT/HCPCS: 36415; 72170; 80053; 85025; 85610

== ENCOUNTER 2023-11-29 08:47 | Outpatient (CLI) | payer OTHER | END 2023-11-29 08:48 | disposition home or self-care (01) | LOC: BICULT 08:47 | PROVIDERS: ATTEND Nurse Practitioner Family | DX: R10.31 Right lower quadrant pain (principal) | CPT/HCPCS: 76700 ==

== ENCOUNTER 2023-12-27 09:03 | Inpatient (IN) | payer OTHER ==
[2023-12-27 09:37] LABS: #Basophils 0.04 10x3/uL (0.0-0.2); %Basophils 0.4 % (0.0-1.0); %Eosinophils 0.5 % (0.0-10.0); %Lymphocytes 16.2 % (21.0-51.0); %Monocytes 8.7 % (0.0-10.0); %Neutrophils 73.8 % (42.0-75.0); Hematocrit 26.8 % (42.0-52.0); Hemoglobin 8.9 g/dL (14.0-18.0); Mean Corpuscular HGB CONC 33.2 g/dL (32.0-36.0); Mean Corpuscular Hemoglobin 30.9 pg (27.0-31.0); Mean Corpuscular Volume 93.1 fL (78.0-98.0); Mean Platelet Volume 10.1 fL (7.4-10.4); Platelet Count 195 10x3/uL (130-400); RBC Distribution Width 14.1 % (11.5-14.5); Red Blood Cell (RBC) Count 2.88 mill/uL (4.70-6.10)
[2023-12-27 09:57] LABS: ALT (SGPT) 19 U/L (8-55); AST (SGOT) 22 U/L (5-34); Albumin 3.5 g/dL (3.4-4.8); Alkaline Phosphatase 41 U/L (40-110); Anion Gap 13 mmol/L (10-20); BUN (Urea Nitrogen) 66 mg/dL (8.4-25.7); Bilirubin, Total 0.4 mg/dL (0.2-1.2); Calc. Creatinine Clearance 0 mL/min (70-130); Calcium 8.4 mg/dL (7.8-10.44); Carbon Dioxide 22 mmol/L (23-31); Chloride 109 mmol/L (98-107); Estimated GFR 65; Globulin 2.2 g/dL (2.4-3.5); Glucose 129 mg/dL (83-110); Potassium 4.7 mmol/L (3.5-5.1); Protein, Total 5.7 g/dL (5.8-8.1); Sodium 139 mmol/L (136-145)
[2023-12-27] MEDS ORDERED: Pantoprazole 40 MG VIAL ONE ×2 (10:16→15:51)
[2023-12-27] MEDS ORDERED: Iopamidol-370 76% 500 ML MDV (1 ML CHARGE) ONE (10:24)
[2023-12-27 10:35] LABS: INR-International Normal Ratio 3.8; PTT 38.2 sec (22.9-36.1); Prothrombin Time 37.7 sec (12.0-14.7)
[2023-12-27 13:06] LABS: Troponin I 0.131 ng/mL (< 0.028)
[2023-12-27] MEDS ORDERED: Acetaminophen 325 MG TAB PO PRN (14:04)
[2023-12-27 15:03] LABS: #Basophils 0.06 10x3/uL (0.0-0.2); %Basophils 0.5 % (0.0-1.0); %Eosinophils 0.3 % (0.0-10.0); %Lymphocytes 35.5 % (21.0-51.0); %Neutrophils 54.4 % (42.0-75.0); Hematocrit 23.3 % (42.0-52.0); Hemoglobin 7.9 g/dL (14.0-18.0); Mean Corpuscular HGB CONC 33.9 g/dL (32.0-36.0); Mean Corpuscular Hemoglobin 31.3 pg (27.0-31.0); Mean Corpuscular Volume 92.5 fL (78.0-98.0); Mean Platelet Volume 10.3 fL (7.4-10.4); Platelet Count 206 10x3/uL (130-400); RBC Distribution Width 14.3 % (11.5-14.5); Red Blood Cell (RBC) Count 2.52 mill/uL (4.70-6.10)
[2023-12-27] MEDS ORDERED: Phytonadione 10 MG/ML AMP ONE (15:56)
[2023-12-27] MEDS ORDERED: Pantoprazole 80 MG, Admixture Fee 1 EACH in Sodium Chloride 0.9% 100 ML IVPB SCH (16:00)
[2023-12-27] MEDS ORDERED: Etomidate 40 MG (20 mL) VIAL ONE (16:30)
[2023-12-27] MEDS ORDERED: SUCCINYLCHOLINE/SOD CL,ISO/PF 200 MG/10 ML SYRINGE FS ONE (17:11)
[2023-12-27] MEDS: GoLYTELY 4,000 ml Bottle PO SCH (20:45)
[2023-12-27] MEDS: Pantoprazole 40 MG VIAL IVP SCH (20:48)
[2023-12-27 22:04] LABS: Hemoglobin 8.2 g/dL (14.0-18.0)
[2023-12-28] MEDS: Sodium Chloride 0.9% 1,000 ML IV SCH ×2
[2023-12-28] MEDS: HUM PROTHROMBIN CPLX(PCC)4FACT 1,000 UNITS, Human Prothrombin Cmp(Kcentra) 500 UNITS in... IV SCH (02:28)
[2023-12-28 03:49] LABS: #Basophils 0.04 10x3/uL (0.0-0.2); %Basophils 0.5 % (0.0-1.0); %Eosinophils 0.4 % (0.0-10.0); %Monocytes 12.8 % (0.0-10.0); %Neutrophils 65.9 % (42.0-75.0); Hematocrit 23.1 % (42.0-52.0); Hemoglobin 7.3 g/dL (14.0-18.0); Mean Corpuscular HGB CONC 31.6 g/dL (32.0-36.0); Mean Corpuscular Hemoglobin 31.5 pg (27.0-31.0); Mean Corpuscular Volume 99.6 fL (78.0-98.0); Platelet Count 138 10x3/uL (130-400); RBC Distribution Width 14.6 % (11.5-14.5); Red Blood Cell (RBC) Count 2.32 mill/uL (4.70-6.10)
[2023-12-28 03:58] LABS: INR-International Normal Ratio 1.3; Prothrombin Time 16.4 sec (12.0-14.7)
[2023-12-28 04:17] LABS: Anion Gap 13 mmol/L (10-20); BUN (Urea Nitrogen) 50 mg/dL (8.4-25.7); Calc. Creatinine Clearance 0 mL/min (70-130); Calcium 7.7 mg/dL (7.8-10.44); Carbon Dioxide 20 mmol/L (23-31); Chloride 112 mmol/L (98-107); Estimated GFR 73; Glucose 115 mg/dL (83-110); Sodium 141 mmol/L (136-145)
[2023-12-28 05:49] LABS: Hemoglobin 5.2 g/dL (14.0-18.0)
[2023-12-28 06:17] VITALS: BMI 28.8
[2023-12-28 06:17] LABS: Hematocrit 23.8 % (42.0-52.0); Hemoglobin 7.7 g/dL (14.0-18.0)
[2023-12-28] MEDS ORDERED: PROPOFOL 20 ML ONE ×2 (08:03→11:49)
[2023-12-28] MEDS ORDERED: Lidocaine 2% PF 5 ML VIAL ONE (08:13)
[2023-12-28] MEDS ORDERED: Ondansetron HCl/PF 4 MG/2 ML Vial IVP PRN (10:11)
[2023-12-28 15:09] LABS: Hemoglobin 6.7 g/dL (14.0-18.0)
[2023-12-29 04:47] LABS: Hematocrit 21.6 % (42.0-52.0); Hemoglobin 7.1 g/dL (14.0-18.0); Platelet Count 120 10x3/uL (130-400)
[2023-12-29 05:03] LABS: Anion Gap 9 mmol/L (10-20); BUN (Urea Nitrogen) 23 mg/dL (8.4-25.7); Calc. Creatinine Clearance 82 mL/min (70-130); Calcium 7.7 mg/dL (7.8-10.44); Carbon Dioxide 20 mmol/L (23-31); Cardiac Risk 2.8 (Less than 4.5); Chloride 115 mmol/L (98-107); Cholesterol 76 mg/dl (< 200 Desired); Estimated GFR 88; Glucose 100 mg/dL (83-110); HDL Cholesterol 27 mg/dL (>60 Neg Risk); LDL Cholesterol, Calculated 28 mg/dL; Potassium 3.8 mmol/L (3.5-5.1); Sodium 140 mmol/L (136-145); Triglycerides 106 mg/dL (Less than 150)
[2023-12-29] MEDS: Spironolactone 25 MG TAB PO SCH (10:24)
[2023-12-29] MEDS: Furosemide 20 MG TAB PO SCH (10:24)
[2023-12-29] MEDS: Warfarin Sodium 5 MG TAB PO SCH (17:04)
[2023-12-29] MEDS: Sodium Ferric Gluconate 250 MG in Sodium Chloride 0.9% 250 ML 250 ML IVPB SCH (18:19)
[2023-12-30 01:58] LABS: Hematocrit 24.1 % (42.0-52.0); Hemoglobin 8.1 g/dL (14.0-18.0)
[2023-12-30 02:14] LABS: Anion Gap 10 mmol/L (10-20); BUN (Urea Nitrogen) 15 mg/dL (8.4-25.7); Calc. Creatinine Clearance 81 mL/min (70-130); Calcium 7.7 mg/dL (7.8-10.44); Carbon Dioxide 20 mmol/L (23-31); Chloride 111 mmol/L (98-107); Estimated GFR 88; Glucose 102 mg/dL (83-110); Magnesium 1.8 mg/dL (1.6-2.6); Potassium 3.3 mmol/L (3.5-5.1); Sodium 138 mmol/L (136-145)
[2023-12-30 02:17] LABS: INR-International Normal Ratio 1.2; Prothrombin Time 15.3 sec (12.0-14.7)
[2023-12-30] MEDS ORDERED: Electrolyte Replacement Protocol 1 EACH FS SCH (02:45)
[2023-12-30] MEDS: Magnesium 2 GM/50 ML(in water) 2 GM in Premix 1 BAG IVPB SCH (03:41)
[2023-12-30] MEDS: Potassium Chloride 20 MEQ TAB PO SCH (03:41)
[2023-12-30] MEDS: Lisinopril 5 MG TAB PO SCH (10:36)
[2023-12-30] MEDS: Furosemide 20 MG TAB PO SCH (10:36)
[2023-12-30] MEDS: Spironolactone 25 MG TAB PO SCH (12:18)
[2023-12-31 05:21] LABS: INR-International Normal Ratio 1.2
[2023-12-31] MEDS: Enoxaparin 80 MG (0.8 mL) SYRINGE SC SCH (09:48)
[2023-12-31] MEDS: Spironolactone 25 MG TAB PO SCH (09:49)
[2023-12-31 09:56] LABS: Hematocrit 28.7 % (42.0-52.0); Hemoglobin 9.6 g/dL (14.0-18.0); Mean Corpuscular HGB CONC 33.4 g/dL (32.0-36.0); Mean Corpuscular Volume 92.6 fL (78.0-98.0); Platelet Count 183 10x3/uL (130-400); RBC Distribution Width 16.2 % (11.5-14.5)
[2023-12-31 10:03] LABS: Anion Gap 13 mmol/L (10-20); BUN (Urea Nitrogen) 14 mg/dL (8.4-25.7); Calc. Creatinine Clearance 75 mL/min (70-130); Calcium 8.5 mg/dL (7.8-10.44); Carbon Dioxide 21 mmol/L (23-31); Chloride 109 mmol/L (98-107); Estimated GFR 86; Glucose 101 mg/dL (83-110); Potassium 3.9 mmol/L (3.5-5.1); Sodium 139 mmol/L (136-145)
[2024-01-01 05:17] LABS: #Basophils 0.04 10x3/uL (0.0-0.2); %Basophils 0.8 % (0.0-1.0); %Eosinophils 5.2 % (0.0-10.0); %Lymphocytes 28.4 % (21.0-51.0); %Monocytes 12.1 % (0.0-10.0); %Neutrophils 52.9 % (42.0-75.0); Hemoglobin 9.3 g/dL (14.0-18.0); Mean Corpuscular HGB CONC 33.2 g/dL (32.0-36.0); Mean Corpuscular Hemoglobin 31.5 pg (27.0-31.0); Mean Corpuscular Volume 94.9 fL (78.0-98.0); Mean Platelet Volume 9.6 fL (7.4-10.4); Platelet Count 194 10x3/uL (130-400); RBC Distribution Width 16.9 % (11.5-14.5); Red Blood Cell (RBC) Count 2.95 mill/uL (4.70-6.10)
[2024-01-01 05:33] LABS: INR-International Normal Ratio 1.3; Prothrombin Time 15.8 sec (12.0-14.7)
[2024-01-01 05:34] LABS: ALT (SGPT) 19 U/L (8-55); AST (SGOT) 25 U/L (5-34); Albumin 3.2 g/dL (3.4-4.8); Alkaline Phosphatase 42 U/L (40-110); Anion Gap 12 mmol/L (10-20); BUN (Urea Nitrogen) 18 mg/dL (8.4-25.7); Bilirubin, Total 0.3 mg/dL (0.2-1.2); Calc. Creatinine Clearance 68 mL/min (70-130); Calcium 8.3 mg/dL (7.8-10.44); Carbon Dioxide 22 mmol/L (23-31); Chloride 109 mmol/L (98-107); Estimated GFR 77; Globulin 2.4 g/dL (2.4-3.5); Glucose 100 mg/dL (83-110); Protein, Total 5.6 g/dL (5.8-8.1); Sodium 139 mmol/L (136-145)
[2024-01-01] MEDS: Warfarin Sodium 5 MG TAB PO SCH (09:40)
[2024-01-02 04:46] LABS: #Basophils 0.04 10x3/uL (0.0-0.2); %Basophils 0.7 % (0.0-1.0); %Eosinophils 5.1 % (0.0-10.0); %Lymphocytes 29.3 % (21.0-51.0); %Monocytes 13.4 % (0.0-10.0); %Neutrophils 50.2 % (42.0-75.0); Hemoglobin 9.2 g/dL (14.0-18.0); Mean Corpuscular HGB CONC 32.9 g/dL (32.0-36.0); Mean Corpuscular Hemoglobin 31.1 pg (27.0-31.0); Mean Corpuscular Volume 94.6 fL (78.0-98.0); Mean Platelet Volume 9.6 fL (7.4-10.4); Platelet Count 208 10x3/uL (130-400); RBC Distribution Width 16.8 % (11.5-14.5); Red Blood Cell (RBC) Count 2.96 mill/uL (4.70-6.10)
[2024-01-02 04:58] LABS: Iron 41 ug/dL (65-175); Iron Binding Capacity, Total 281 mcg/dL (261-462)
[2024-01-02 05:03] LABS: ALT (SGPT) 16 U/L (8-55); AST (SGOT) 21 U/L (5-34); Albumin 3.3 g/dL (3.4-4.8); Alkaline Phosphatase 44 U/L (40-110); Anion Gap 9 mmol/L (10-20); BUN (Urea Nitrogen) 19 mg/dL (8.4-25.7); Bilirubin, Total 0.3 mg/dL (0.2-1.2); Calc. Creatinine Clearance 66 mL/min (70-130); Calcium 8.4 mg/dL (7.8-10.44); Carbon Dioxide 24 mmol/L (23-31); Chloride 107 mmol/L (98-107); Estimated GFR 74; Globulin 2.4 g/dL (2.4-3.5); Glucose 94 mg/dL (83-110); Potassium 3.9 mmol/L (3.5-5.1); Protein, Total 5.7 g/dL (5.8-8.1); Sodium 136 mmol/L (136-145)
[2024-01-02 05:14] LABS: INR-International Normal Ratio 1.4; Prothrombin Time 17.1 sec (12.0-14.7)
[2024-01-02] MEDS ORDERED: Phytonadione 10 MG/ML AMP PO SCH (05:45)
[2024-01-02] MEDS: Phytonadione 5 MG TAB PO SCH (06:26)
[2024-01-02] MEDS: Pantoprazole DR 40 MG TAB PO SCH (09:16)
[2024-01-03 04:18] LABS: #Basophils 0.03 10x3/uL (0.0-0.2); %Basophils 0.5 % (0.0-1.0); %Eosinophils 4.7 % (0.0-10.0); %Lymphocytes 26.3 % (21.0-51.0); %Monocytes 14.8 % (0.0-10.0); %Neutrophils 52.6 % (42.0-75.0); Hematocrit 28.1 % (42.0-52.0); Hemoglobin 9.4 g/dL (14.0-18.0); Mean Corpuscular HGB CONC 33.5 g/dL (32.0-36.0); Mean Corpuscular Hemoglobin 31.9 pg (27.0-31.0); Mean Corpuscular Volume 95.3 fL (78.0-98.0); Mean Platelet Volume 9.6 fL (7.4-10.4); Platelet Count 213 10x3/uL (130-400); RBC Distribution Width 17.1 % (11.5-14.5); Red Blood Cell (RBC) Count 2.95 mill/uL (4.70-6.10)
[2024-01-03 04:31] LABS: INR-International Normal Ratio 1.3; Prothrombin Time 16.1 sec (12.0-14.7)
[2024-01-03 04:41] LABS: ALT (SGPT) 21 U/L (8-55); AST (SGOT) 24 U/L (5-34); Albumin 3.2 g/dL (3.4-4.8); Alkaline Phosphatase 44 U/L (40-110); Anion Gap 11 mmol/L (10-20); BUN (Urea Nitrogen) 22 mg/dL (8.4-25.7); Bilirubin, Total 0.4 mg/dL (0.2-1.2); Calc. Creatinine Clearance 62 mL/min (70-130); Calcium 8.4 mg/dL (7.8-10.44); Carbon Dioxide 23 mmol/L (23-31); Chloride 108 mmol/L (98-107); Estimated GFR 69; Globulin 2.5 g/dL (2.4-3.5); Glucose 100 mg/dL (83-110); Potassium 4.2 mmol/L (3.5-5.1); Protein, Total 5.7 g/dL (5.8-8.1); Sodium 138 mmol/L (136-145)
[2024-01-03] MEDS: Rosuvastatin 20 MG TAB PO SCH (09:08)
[2024-01-03] MEDS: Warfarin Sodium 5 MG TAB PO SCH (09:10)
[2024-01-03 15:37] VITALS: BMI 28.3
[2024-01-03] MEDS: Warfarin Sodium 7.5 MG TAB PO SCH (16:05)
[2024-01-04 04:35] LABS: INR-International Normal Ratio 1.3; Prothrombin Time 15.9 sec (12.0-14.7)
[2024-01-04] MEDS: Warfarin Sodium 5 MG TAB PO SCH (10:24)
[2024-01-04 11:14] VITALS: BP 122/64
[2024-01-04 17:52] VITALS: TEMP 98.8
== END 2024-01-04 19:00 | disposition home or self-care (01) | DRG 377 ==
LOC: ERS 09:03 → SDC 17:28 → IMCU/EMU 17:34 → OBSVTOIN 19:00 → 2NO 12-29 13:58
PROVIDERS: ADMIT Hospitalist; ATTEND Student in an Organized Health Care Education/Training Program
PROC: 0DJ08ZZ Inspection of Upper Intestinal Tract, Via Natural or Artificial Opening Endoscopic (ICD-10-PCS; principal; 2023-12-27)
PROC: 30233N1 Transfusion of Nonautologous Red Blood Cells into Peripheral Vein, Percutaneous Approach (ICD-10-PCS; 2023-12-27)
PROC: 0DBM8ZZ Excision of Descending Colon, Via Natural or Artificial Opening Endoscopic (ICD-10-PCS; 2023-12-28)
PROC: 0DBN8ZZ Excision of Sigmoid Colon, Via Natural or Artificial Opening Endoscopic (ICD-10-PCS; 2023-12-28)
DX: K26.4 Chronic or unspecified duodenal ulcer with hemorrhage (principal); I21.A1 Myocardial infarction type 2; D62 Acute posthemorrhagic anemia; I50.42 Chronic combined systolic (congestive) and diastolic (congestive) heart failure; I25.10 Atherosclerotic heart disease of native coronary artery without angina pectoris; E78.5 Hyperlipidemia, unspecified; Z96.652 Presence of left artificial knee joint; I95.9 Hypotension, unspecified; I45.10 Unspecified right bundle-branch block; E78.00 Pure hypercholesterolemia, unspecified; I11.0 Hypertensive heart disease with heart failure; D12.4 Benign neoplasm of descending colon; D12.5 Benign neoplasm of sigmoid colon; Z95.1 Presence of aortocoronary bypass graft; Z95.2 Presence of prosthetic heart valve; Z79.01 Long term (current) use of anticoagulants
CPT/HCPCS: 36415; 36416; 36430; 70450; 74174; 80048; 80053; 80061; 82274; 82728; 83540; 83550; 83735; 83880; 84484; 85014; 85018; 85025; 85027; 85049; 85610; 85730; 86850; 86900; 86901; 88305; 93005; 93010; 96374; 96375; 96376; J1650; J2470; J2704; J2916; J3430; J3475; J7030; J7050; J7168; P9016; Q9967